=== PATIENT | female | born 1965 | race Caucasian/White ===

== ENCOUNTER 2023-11-26 21:59 | Emergency (ER) | payer MEDICARE, MEDICAID, SELFPAY ==
--- NOTE | ~2023-11-26 | CT_ITS ---
EXAMINATION: CT HEAD WITHOUT CONTRAST CT CERVICAL SPINE WITHOUT CONTRAST CLINICAL INFORMATION: Fall. Headache. COMPARISON: None available. TECHNIQUE: Contiguous axial imaging was performed through the head and cervical spine without contrast. Sagittal and coronal reformatted images also obtained. This CT examination was performed using dose optimization techniques as appropriate, variously including the following: *Automated exposure control *Adjustment of mA and/or kV according to patient size (this includes techniques or standardized protocols for targeted exams where dose is matched to indication/reason for exam; i.e. extremities or head) *Use of iterative reconstruction technique DLP: 1059 mGy-cm FINDINGS: A right occipital approach CVP shunt catheter extends anteriorly terminating in the anterior horn of the right lateral ventricle. There is bifrontal as well as temporal-occipital encephalomalacia with ex vacuo dilatation of the right lateral ventricle. There appears to be mild generalized cerebral volume loss with prominence of the left lateral and third ventricles. The cortical sulci are widened appropriately. The fourth ventricle and basal cisterns are normally outlined. There is no acute territorial defect, hemorrhage or midline shift. The extra-axial spaces are unremarkable. Calvarium: There has been a right temporal parietal craniotomy with apparent surgical clips in place and some air lucencies along the craniotomy likely chronic. There is no acute osseous abnormality. The scalp soft tissues are unremarkable. Maxillofacial sinuses and mastoids: Clear as visualized. Cervical spine: There is straightening of the cervical spine curvature. There is diffuse uroa-ts-ozxibddl cervical disc degenerative change with loss of disc space, endplate change and posterior osteophytes associated with diffuse facet osteoarthritic hypertrophic change with multilevel mild spinal canal and kdjw-rd-stbeuoml neuroforaminal narrowing. No fracture is seen. The soft tissues are unremarkable. The visualized upper lung fong are clear. CT/CT cervical spine wo IV con IMPRESSION: CT HEAD: 1. No acute intracranial abnormality. 2. Right occipital approach CVP shunt catheter extends anteriorly terminating in the anterior horn of the right lateral ventricle. 3. Bifrontal and bitemporal occipital encephalomalacia with ex vacuo dilatation of the right lateral ventricle. 4. Right temporal parietal craniotomy. CT CERVICAL SPINE: 1. No acute abnormality. 2. Diffuse cervical spondylosis.
--- NOTE | ~2023-11-26 | CT_ITS ---
EXAMINATION: CT HEAD WITHOUT CONTRAST CT CERVICAL SPINE WITHOUT CONTRAST CLINICAL INFORMATION: Fall. Headache. COMPARISON: None available. TECHNIQUE: Contiguous axial imaging was performed through the head and cervical spine without contrast. Sagittal and coronal reformatted images also obtained. This CT examination was performed using dose optimization techniques as appropriate, variously including the following: *Automated exposure control *Adjustment of mA and/or kV according to patient size (this includes techniques or standardized protocols for targeted exams where dose is matched to indication/reason for exam; i.e. extremities or head) *Use of iterative reconstruction technique DLP: 1059 mGy-cm FINDINGS: A right occipital approach CVP shunt catheter extends anteriorly terminating in the anterior horn of the right lateral ventricle. There is bifrontal as well as temporal-occipital encephalomalacia with ex vacuo dilatation of the right lateral ventricle. There appears to be mild generalized cerebral volume loss with prominence of the left lateral and third ventricles. The cortical sulci are widened appropriately. The fourth ventricle and basal cisterns are normally outlined. There is no acute territorial defect, hemorrhage or midline shift. The extra-axial spaces are unremarkable. Calvarium: There has been a right temporal parietal craniotomy with apparent surgical clips in place and some air lucencies along the craniotomy likely chronic. There is no acute osseous abnormality. The scalp soft tissues are unremarkable. Maxillofacial sinuses and mastoids: Clear as visualized. Cervical spine: There is straightening of the cervical spine curvature. There is diffuse wbfp-xk-tubwqzvr cervical disc degenerative change with loss of disc space, endplate change and posterior osteophytes associated with diffuse facet osteoarthritic hypertrophic change with multilevel mild spinal canal and bsyt-dq-rxrdosti neuroforaminal narrowing. No fracture is seen. The soft tissues are unremarkable. The visualized upper lung fong are clear. CT/CT head/brain wo IV con IMPRESSION: CT HEAD: 1. No acute intracranial abnormality. 2. Right occipital approach CVP shunt catheter extends anteriorly terminating in the anterior horn of the right lateral ventricle. 3. Bifrontal and bitemporal occipital encephalomalacia with ex vacuo dilatation of the right lateral ventricle. 4. Right temporal parietal craniotomy. CT CERVICAL SPINE: 1. No acute abnormality. 2. Diffuse cervical spondylosis.
[2023-11-26 22:03] VITALS: BP 144/80; PULSE 83; O2SAT 95
[2023-11-26 22:09] VITALS: BP 167/87; PULSE 84; RESP 16; TEMP 36.9; O2SAT 94; BMI 32.2
[2023-11-26 23:49] VITALS: BP 172/70; PULSE 78; RESP 16; TEMP 36.9; O2SAT 92
--- NOTE | 2023-11-27 00:33 | ED_ITS ---
HPI - Fall General Chief Complaint: Fall Stated Complaint: fall w/ head strike from snf Time Seen by Provider: 11/26/23 22:08 Source: patient and EMS Mode of arrival: EMS Limitations: no limitations History of Present Illness ED Provider: Dr. Ashlee Cardoza HPI Narrative: Patient comes to the emergency room complaining of a head injury. Patient states that she was in her recliner, patient accidentally fell backwards and hit the back of her head. Patient denies loss of consciousness, denies being on blood thinners, no neck pain. Patient states she has a bit of a headache, cheri es lacerations or any other injuries. 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 Related Data Allergies Allergy/AdvReac Type Severity Reaction Status Date / Time Penicillins Allergy Unknown Verified 11/26/23 22:22 Review of Systems Review of Systems: Constitutional : No Weight loss, No Fever, No Chills, No Night Sweats, No Fatigue, No Malaise ENT/Mouth : No Hearing loss, No Ear Pain, No Nasal Congestion, No Sinus Pain, No Hoarseness, No sore throat, No Rhinorrhea, No Swallowing Difficulty Eyes: No Eye Pain, No Swelling, No Redness, No Foreign Body, No Discharge, No Vision Changes Cardiovascular : No Chest Pain, No SOB, No Dyspnea on Exertion, No Orthopnea, No Edema, No Palpitations Respiratory : No Cough, No Sputum, No Wheezing, No Smoke Exposure, No Dyspnea Gastrointestinal : No Nausea, No Vomiting, No Diarrhea, No Constipation, No abdominal Pain, No Hematochezia, No Melena Genitourinary : no irregular bleeding, No Dysuria, No Urinary Frequency, No Hematuria, No Urinary Incontinence, No Urgency, No Flank Pain, No Urinary Flow Changes, No Hesitancy Musculoskeletal : No joint pain, No Myalgias, No Joint Swelling Skin : No Skin Lesions, No rash Neuro : No Weakness, No Numbness, No Paresthesias, No Loss of Consciousness, No Dizziness, complaining of mild posterior Headache Psych : No Anxiety/Panic, No Depression, No SI/HI/AH/VH, No Social Issues, Heme/Lymph: No Bruising, No Bleeding,No Lymphadenopathy Endocrine : No Polyuria, No Polydipsia, No Temperature Intolerance [facility] Past Medical History Medical History (Updated 11/27/23 @ 00:37 by Ashlee Cardoza MD) CVA (cerebral vascular accident) Social History Social History Advance Directives: No Advance Directives Information Provided: Yes Do you have a plan to hurt others: No Plan Physical Exam Vital Signs: Vital Signs: Last Vital Signs Temp 98.4 F 11/26/23 23:49 Pulse 78 11/26/23 23:49 Resp 16 11/26/23 23:49 BP 172/70 H 11/26/23 23:49 Pulse Ox 92 11/26/23 23:49 O2 Del Method Room Air 11/26/23 23:49 BMI result Body Mass Index 32.2 Const: Other: Appearance: Alert. Oriented X3. No acute distress. Well-appearing Eyes: Pupils equal, round and reactive to light. ENT: Pharynx normal. Neck: Normal inspection. Neck supple. No lymph nodes noted. No crepitus, no C- spine tenderness to palpation, normal flexion and extension, no palpable step- offs CVS: Normal heart rate and rhythm. Pulses normal. Normal S1 and S2 Respiratory: No respiratory distress. Breath sounds normal. No Wheezing. No rales Abdomen: Soft and nontender. No rigidity. No distention. Skin: Skin warm and dry. Normal skin color. Normal skin turgor. Extremities: No lower extremity edema. No Lacerations. No Rash Neuro: Oriented X 3. No motor deficit. No sensory deficit. Moving all extremities. No slurred speech. CN 2 through 12 grossly intact Psych: calm, cooperative, normal affect Medical Decision Making Medical Decision Making MDM Narrative: -patient states that the headache resolved by itself. -my interpretation of CT scan, enlarged ventricles, there is a shunt in place Differential Diagnosis Differential Diagnoses: The differential diagnosis associated with the presentation includes (Intracranial bleed, cervical spine injury, contusion, concussion) Independent Interpretation I performed an independent interpretation of an: CT Scan Radiology Impression Discussion of test interpretation with radiology: I have reviewed the radiologist's reading. Radiologist Impression: FINDINGS: A right occipital approach CVP shunt catheter extends anteriorly terminating in the anterior horn of the right lateral ventricle. There is bifrontal as well as temporal-occipital encephalomalacia with ex vacuo dilatation of the right lateral ventricle. There appears to be mild generalized cerebral volume loss with prominence of the left lateral and third ventricles. The cortical sulci are widened appropriately. The fourth ventricle and basal cisterns are normally outlined. There is no acute territorial defect, hemorrhage or midline shift. The extra-axial spaces are unremarkable. Calvarium: There has been a right temporal parietal craniotomy with apparent surgical clips in place and some air lucencies along the craniotomy likely chronic. There is no acute osseous abnormality. The scalp soft tissues are unremarkable. Maxillofacial sinuses and mastoids: Clear as visualized. Cervical spine: There is straightening of the cervical spine curvature. There is diffuse edah-zl-zubytjzy cervical disc degenerative change with loss of disc space, endplate change and posterior osteophytes associated with diffuse facet osteoarthritic hypertrophic change with multilevel mild spinal canal and ckrt-lk-wkujjwnf neuroforaminal narrowing. No fracture is seen. The soft tissues are unremarkable. The visualized upper lung fong are clear. CT/CT head/brain wo IV con IMPRESSION: CT HEAD: 1. No acute intracranial abnormality. 2. Right occipital approach CVP shunt catheter extends anteriorly terminating in the anterior horn of the right lateral ventricle. 3. Bifrontal and bitemporal occipital encephalomalacia with ex vacuo dilatation of the right lateral ventricle. 4. Right temporal parietal craniotomy. CT CERVICAL SPINE: 1. No acute abnormality. 2. Diffuse cervical spondylosis. Critical Care Time Critical Care Time Critical Care Time: Yes Total Critical Care Time: 35 Attestation: I have personally provided critical care time. Time includes review of lab data, radiology results, discussion with consultants, and monitoring for potential decompensation. Intervention performed as documented. Discharge Plan Discharge Clinical Impression: Closed head injury Patient Disposition: Home, Self-Care Instructions: Head Injury (ED) Additional Instructions: Please follow-up with your primary care physician tomorrow. If you have any worsening or new symptoms, please return to the emergency room or call 911 Print Language: Indonesian
[2023-11-27 02:21] VITALS: RESP 16
[2023-11-27 02:49] VITALS: BP 146/57; PULSE 86; RESP 20; TEMP 36.9; O2SAT 95
== END 2023-11-27 02:52 | disposition home or self-care (01) ==
PROVIDERS: Emergency Provider Emergency Medicine; PCP Nurse Practitioner Family
DX: S09.90XA Unspecified injury of head, initial encounter (principal); I69.398 Other sequelae of cerebral infarction; W08.XXXA Fall from other furniture, initial encounter; Y93.9 Activity, unspecified; Y92.9 Unspecified place or not applicable; Y99.9 Unspecified external cause status
CPT/HCPCS: 70450; 72125; 99284

== ENCOUNTER 2024-07-26 18:57 | Emergency (ER) | payer MEDICARE, MEDICAID, SELFPAY ==
[2024-07-26 19:06] VITALS: BP 132/78; PULSE 99; O2SAT 99
--- NOTE | 2024-07-26 19:21 | ED_ITS ---
HPI - Nausea/Vomiting/Diarrhea General Chief complaint: Nausea/Vomiting/Diarrhea Stated complaint: abd pain hx 1hr , vomitting. 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 comes here as she vomited 3 times after she had fish sticks in 17:00 with diffuse abdominal discomfort feeling much better no diarrhea no fever patient denied any urinary symptoms no fever no chills Related Data Previous Rx's ?Medication ?Instructions ?Recorded ondansetron 4 mg disintegrating 4 mg PO Q6-8H PRN nausea and 07/26/24 tablet vomiting #7 tabs Allergies Allergy/AdvReac Type Severity Reaction Status Date / Time levofloxacin [From Levaquin] Allergy Unknown Verified 07/26/24 19:26 Penicillins Allergy Unknown Verified 11/26/23 22:22 Review of Systems 2 Review of Systems: Yes all other systems are reviewed and are negative PMFSH Past Medical History Medical History CVA (cerebral vascular accident) Social History Social History Advance Directives: No Advance Directives Information Provided: Yes Physical Exam 2 Vital Signs: Vital Signs: Last Vital Signs Temp 98.1 F 07/26/24 19:24 Pulse 97 07/26/24 19:24 Resp 16 07/26/24 19:24 BP 131/66 07/26/24 19:24 Pulse Ox 93 07/26/24 19:24 O2 Del Method Room Air 07/26/24 19:24 BMI result Body Mass Index 30.3 Appearance: Alert. Oriented No acute distress. Eyes: No pallor or icterus legally blind ENT: Pharynx normal. Oral Mucosa moist Neck: Normal inspection. Neck supple. CVS: Normal heart rate and rhythm. Pulses normal. Respiratory: No respiratory distress. Equal air entry bilateral, no wheezing/rales/rhonchi Abdomen: Soft and nontender. Bowel sounds are present, no mass palpable, no CVA tenderness Skin: Skin warm and dry. Normal skin color. Normal skin turgor. Extremities: No lower extremity edema. No calf tenderness Neuro: Alert and awake . Left hemiparesis Medications Administered Discontinued Medications Generic Name Dose Route Start Last Admin Trade Name Benitez PRN Reason Stop Dose Admin Levetiracetam 500 mg 07/26/24 19:12 07/26/24 19:31 Levetiracetam 500 Mg Tablet PO 07/26/24 19:13 500 mg ONCE ONE Administration Levetiracetam 250 mg 07/26/24 19:13 07/26/24 19:31 Levetiracetam 250 Mg Tablet PO 07/26/24 19:14 250 mg ONCE ONE Administration Ondansetron HCl 4 mg 07/26/24 19:29 07/26/24 19:38 Ondansetron Odt 4 Mg Tab.Rapdis TRANSLINGU 07/26/24 19:30 4 mg ONCE ONE Administration Medical Decision Making Medical Decision Making [facility] Narrative: Patient with benign abdominal minor episode of vomiting after taking fish sticks likely the cause feeling much better now taking p.o. fluids will discharge patient back to Lab Data [facility] Lab Attestation statement: I reviewed the patient's lab results. 07/26/24 20:45 07/26/24 20:45 Labs: Lab Results 07/26/24 Range/Units 20:45 WBC 14.3 H (4.8-10.8) X10*3/uL RBC 4.60 (4.20-5.50) X10*6/uL Hgb 12.6 (12.0-16.0) g/dl Hct 38.5 (37.0-47.0) % MCV 83.7 (80.0-98.0) fL MCH 27.4 (27.0-33.0) pg MCHC 32.7 (31.0-35.0) g/dl RDW 13.4 (11.0-16.0) % Plt Count 278 (160-400) X10*3/uL MPV 9.0 L (9.4-12.3) fL Immature Gran % (Auto) 0.5 H (0.0-0.4) % Neut % (Auto) 88.6 H (45-73) % Lymph % (Auto) 4.0 L (20-40) % [place] % (Auto) 5.9 (2-11) % Eos % (Auto) 0.8 (0-4) % Baso % (Auto) 0.2 (0-2) % Lymph # (Auto) 0.6 L (1.2-4.9) X10*3/uL [place] # (Auto) 0.8 (0.1-1.2) X10*3/uL Eos # (Auto) 0.1 (0.0-0.4) X10*3/uL Baso # (Auto) 0.0 (0.0-0.2) X10*3/uL Abs Immat Gran (auto) 0.07 H (0.00-0.03) X10*3/uL Absolute Neuts (auto) 12.7 H (2.0-8.3) x10*3/uL Absolute Nucleated RBC 0.000 (0.0-0.012) X10*3/uL Nucleated RBC % (auto) 0.0 (0.0-0.2) /100WBC Sodium 141 (135-145) mmol/L Potassium 3.2 L (3.3-5.1) mmol/L Chloride 109 H (96-108) mmol/L Carbon Dioxide 21 L (22-29) mmol/L Anion Gap 14 (12-20) BUN 13 (9-16) mg/dL Creatinine 0.51 (0.5-1.4) mg/dL Estim Creat Clear Calc 89.8 Estimated GFR > 60 Random Glucose 138 H (60-115) mg/dL Calcium 8.5 (8.4-10.2) mg/dL Total Bilirubin 0.2 (0.0-1.0) mg/dL Direct Bilirubin < 0.2 (0.0-0.5) mg/dL AST 27 (5-31) U/L ALT 17 (0-31) U/L Alkaline Phosphatase 83 (39-117) U/L Total Protein 7.7 (6.5-8.0) g/dL Albumin 4.0 (3.5-5.0) g/dL Lipase 26 (8-78) U/L Discharge Plan Discharge Clinical Impression: Gastroenteritis Patient Disposition: Home, Self-Care Instructions: Acute Nausea and Vomiting (ED) Additional Instructions: drink plenty of fluids Medicine for nausea as prescribed Your symptoms self-limited get better in 2-3 days Prescriptions: New ondansetron 4 mg tablet,disintegrating 4 mg PO Q6-8H PRN (Reason: nausea and vomiting) Qty: 7 0RF Print Language: Uzbek
[2024-07-26 19:24] VITALS: BP 131/66; PULSE 97; RESP 16; TEMP 36.7; O2SAT 93; BMI 30.3
[2024-07-26] MEDS: levETIRAcetam 250 MG TABLET PO (19:31)
[2024-07-26] MEDS: levETIRAcetam 500 MG TABLET PO (19:31)
[2024-07-26] MEDS: Ondansetron ODT 4 MG TAB.RAPDIS TRANSLINGU (19:38)
[2024-07-26 20:55] LABS: MANUAL DIFF FLAG NO
[2024-07-26 20:56] LABS: Basophils Percent Auto 0.2 % (0-2); Eosinophils Absolute Auto 0.1 X10*3/uL (0.0-0.4); Eosinophils Percent Auto 0.8 % (0-4); Hematocrit 38.5 % (37.0-47.0); Hemoglobin 12.6 g/dl (12.0-16.0); Imm Gran Abs Auto 0.07 X10*3/uL (0.00-0.03); Imm Gran Pct Auto 0.5 % (0.0-0.4); Lymphocytes Absolute Auto 0.6 X10*3/uL (1.2-4.9); Mean Corpuscular HGB Conc 32.7 g/dl (31.0-35.0); Mean Corpuscular Hemoglobin 27.4 pg (27.0-33.0); Mean Corpuscular Volume 83.7 fL (80.0-98.0); Monocytes Absolute Auto 0.8 X10*3/uL (0.1-1.2); Monocytes Percent Auto 5.9 % (2-11); Neutrophils Absolute Auto 12.7 x10*3/uL (2.0-8.3); Neutrophils Percent Auto 88.6 % (45-73); Platelet Count 278 X10*3/uL (160-400); Red Cell Distribution Width 13.4 % (11.0-16.0); White Blood Count 14.3 X10*3/uL (4.8-10.8)
[2024-07-26 21:21] LABS: Alanine Aminotransferase 17 U/L (0-31); Alkaline Phosphatase 83 U/L (39-117); Anion Gap 14 (12-20); Aspartate Amino Transferase 27 U/L (5-31); Bilirubin Direct < 0.2 mg/dL (0.0-0.5); Bilirubin Total 0.2 mg/dL (0.0-1.0); Blood Urea Nitrogen 13 mg/dL (9-16); Calcium 8.5 mg/dL (8.4-10.2); Carbon Dioxide 21 mmol/L (22-29); Chloride 109 mmol/L (96-108); Creatinine Clr Calc Pharmacy 89.8; Estimated Glomerular Filt Rate > 60; Glucose Random 138 mg/dL (60-115); Lipase 26 U/L (8-78); Potassium 3.2 mmol/L (3.3-5.1); Sodium 141 mmol/L (135-145); Total Protein 7.7 g/dL (6.5-8.0)
[2024-07-27 00:05] VITALS: BP 131/66; PULSE 97; RESP 16; TEMP 36.7; O2SAT 93
== END 2024-07-27 00:07 | disposition home or self-care (01) ==
PROVIDERS: Nurse Practitioner Family; Emergency Provider Internal Medicine; PCP Nurse Practitioner Family
DX: K52.9 Noninfective gastroenteritis and colitis, unspecified (principal); R11.2 Nausea with vomiting, unspecified; R10.2 Pelvic and perineal pain; Z79.899 Other long term (current) drug therapy
CPT/HCPCS: 36415; 80048; 80076; 83690; 85025; 96374; 99282; 99284

== ENCOUNTER 2025-03-03 12:17 | Emergency (ER) | payer MEDICARE, MEDICAID, SELFPAY ==
--- OUTSIDE RECORDS SUMMARY | 2025-03-02 09:45 | XMS_ITS | Encounter Summary ---
Author Organization [facility] Address [address] [place] [address] Phone Care Team Providers Care Wood Flooring Specialist Name Role Phone Suzanne De Leon [facility] Primary Care Provider [phone] Suzanne De Leon [facility] Unavailable [phone] Reason for Visit * Physical Therapy (Elective) - Authorized Specialty Diagnoses / Procedures Referred By Brent to Referred To Contact Physical Therapy Diagnoses right shoulder Alison Evans MD [facility], [facility] [address] Phone: tel: fax: [email or web address] [address] [place] [address] Phone: tel: Referral ID Status Reason Start Date Expiration Date V isits Requested Visits Authorized [id number] Authorized 11/11/2024 11/11/2025 99 99 Encounter Details Date Type Department Care Team (Latest Contact Info) Description 03/02/2025 9:45 AM EDT Office Visit [facility] [address] [place] [address] Alison Evans MD [address] [place] [address] [facility] [place] [address] [email or web address] Diane Long, PT [address] [place] [address] [email or web address] Chronic right shoulder pain (Primary Dx); Right hand pain Social History Tobacco Use Types Packs/Day Years Used Date Smoking Tobacco: Never Smokeless Tobacco: Never Alcohol Use Standard Drinks/Week Comments Not Currently 0 (1 standard drink = 0.6 oz pur e alcohol) Education Answer Date Recorded Are you interested in more education? Not on angelique e 11/03/2022 Are you concerned about learning? Not on file 11/03/2022 No 11/03/2022 No 11/03/2022 Digital Access Answer Date Recorded No 12/01/2022 No 12/01/2022 Reliable internet access at home? Not on file 12/01/2022 Device with a working camera? Not on file Intimate Partner Violence Answer Date R ecorded Are you denied basic needs s uch as food, clothing, or medical care? No 12/08/2024 In the past 12 months have y ou been in a relationship with a person who hurts, threatens, or tries to control you? No 12/08/2024 Are you denied basic needs s uch as food, clothing, or medical care? No 12/08/2024 In the past 12 months have y ou been in a relationship with a person who hurts, threatens, or tries to control you? No 12/08/2024 Comments No Sex and Gender Information Value Date Recorded Sex Assigned at Female 03/28/2021 6:41 AM EDT Legal Sex Female 6:42 PM EST Gender Identity Female 03/28/2021 6:41 AM EDT Sexual Orientation Not on file Occupation Industry Job Start Date Job End Date Disabled Not on file Not on file Not on file documented as of this encounter Progress Notes * Diane Long, PT - 03/02/2025 9:45 AM EDT Physical Therapy Treatment Note Patient Name: Radha Julian Date of : 1965 This patient has attended 7 visits since the onset Physical Therapy. Referring MD: Alison Evans MD [address] [place] [address] [facility], [place] [address] Treatment diagnosis: Chronic right shoulder pain [M25.511, G89.29] Precautions: Left hemiplegia (chronic left upper extremity weakness); Right shoulder arthritis and tendonitis; [facility] arthritis - recommend thumb brace for support; Advise against tendon rolling; osteopenia; (vision) legal blindness Transfers: min-mod A squat pivot, patient already typically has pink gait belt donned, caregiver can provide assistance if needed Subjective: Patient reports her right shoulder kicks up at times and the sometimes her right thumb Patient reports rowing is going fine with right arm and right leg, 1500 m each session on . Patient reports rowing trip will be in [place] this year (April 03) Objective Measures: Upper Extremity ROM: SHOULDER AROM Right Flexion 130 (seated) 170 (supine) No pain Abduction 145 (seated) * 3/10 pain EMPLOYEE COMMUNICATIONS COORDINATOR Vanda present for appointment, PT wheeled patient into treatment room Interventions: See encounter report for minutes associated with each intervention. Therapeutic exercise: - forward flexion table slides: 2 x 10 - scaption table slides: 2 x 10 - scapular retraction: 2 x 10 - Shoulder ER: progressed to red TB attached to chair, towel roll support 3 x 10 - 2lb dumbbell bicep curl: 3 x 10 - thumbs up lateral deltoid raise 1lb AROM 3 x 10 - shoulder IR: towel roll support 3 x 10 red TB 3 x 10 Wheelchair mobility: - R arm/R leg, 130 feet over course of 4 minutes Home Exercise Program: Access Code: [email or web address] URL: [email or web address] Date: 02/02/2025 Prepared by: Diane Long Exercises - Seated Shoulder Flexion Towel Slide at Table Top - 5 x weekly - 2 sets - 10 reps - Posture: Scapular squeezes through out the day - 5 x weekly - 2 sets - 10 reps - Seated Shoulder Row with Resistance Anchored at Feet - 5 x weekly - 3 sets - 10 reps - Seated Shoulder Internal Rotation with Anchored Resistance - 5 x weekly - 3 sets - 10 reps - Seated Shoulder External Rotation with Resistance - 5 x weekly - 3 sets - 10 reps - Bicep curls - 3 x weekly - 3 sets - 10 reps - Strength: Middle Deltoid Raise - 3 x weekly - 3 sets - 10 reps - Seated Shoulder Pendulum Exercise - 1-3 x daily - 5 x weekly - 1 sets - 10 reps Self-care/education: review and practice of HEP Assessment: Patient exhibits less right shoulder pain with flexion and abduction AROM, improved form with setup assistance for HEP, progressed to red theraband for IR and ER. GOAL (Short Term): Within 3-4 weeks: -Patient will be able to propel wheelchair for 2 minutes without right shoulder pain limiting activity MET -Patient will be able to perform scapular retraction with minimal verbal cues MET -Patient will participate in strengthening program 3-4 days per week without right shoulder pain exacerbation > or = 4/10 PROGRESSING -Patient will be independent and compliant with initial home exercise program/self management PROGRESSING (Correction): Within 6-8 weeks: -Patient/caregiver is able to dress without right shoulder pain limiting function MET -Patient will improve seated right shoulder abduction AROM > or = 130 degrees MET -Patient will be able to propel wheelchair for 5 minutes without right shoulder pain limiting activity PROGRESSING -Patient will participate in strengthening program 3-4 days per week without right shoulder pain exacerbation > or = 4/10 PROGRESSING -Patient global pain-free R rotator cuff strength > or = 4+/5 PROGRESSING -Patient/caregiver will be independent and compliant with final home exercise program/self management Patient Stated Goal: relief from discomfort MET Plan: Tentative discharge, no further visits scheduled at this time. Cancellation list for Tuesdays Continue with POC. Discussed patient scheduling more visits until her competition on 04/03/25, provided slip for scheduling. Patient may benefit from specialized hand therapy for right hand/wrist (will contact Dr. Pyle) if OT order is warranted. Diane Long [place] [id number] documented in this encounter Plan of Treatment Upcoming Encounters Date Type Department Care Team (Late st Contact Info) Description 11/19/2024 Procedure Pass [facility], [address] [address] 06/16/2025 10:30 AM EST Appointment [facility], Mammography- [address] [address] Suzanne De Leon FNP [address] [facility], [facility] [address] [address] 08/03/2025 11:15 AM EST Appointment [facility], Bone Density - [address] [address] Suzanne De Leon FNP [address] [facility], [facility] [address] [address] documented as of this encounter Visit Diagnoses Diagnosis Chronic right shoulder pain- Primary Pain in joint, shoulder region Right hand pain Pain in soft tissues of limb documented in this encounter Additional Health Concerns Assessment Noted Time PHQ-2 Depression Total Score: 0 11/18/19 11:54 AM EDT documented as of this encounter Care Teams Wood Flooring Specialist Relationship Specialty Start Date End Date Suzanne De Leon FNP [address] [place] [address], [facility] [address] [address] PCP - General Family Medicine 07/20/21 Suzanne De Leon FNP [address] [place] [address] [address] [address] Insurance Assigned Provider 10/11/24 documented as of this encounter Additional Source Comments The information contained in this document represents components of the legal health record. It is not the complete legal health record.[facility]
--- NOTE | ~2025-03-03 | XR_ITS ---
EXAMINATION: XR KNEE, LEFT CLINICAL INFORMATION: L knee pain COMPARISON: None available. TECHNIQUE: AP and lateral views of the left knee. FINDINGS: There is diffuse osteopenia. There is a fracture of the distal femur that extends from the anterior metaphyseal region to the posterior mid to distal diaphysis. There is no joint effusion. XR/XR knee LT 2V IMPRESSION: Distal femoral metadiaphyseal fracture. Osteopenia. Electronically signed by: Francois Luna MD 03/03/2025 01:31 PM EDT
--- NOTE | ~2025-03-03 | XR_ITS ---
EXAMINATION: XR CHEST CLINICAL INFORMATION: medical clearance COMPARISON: None available. TECHNIQUE: AP view of the chest was obtained. FINDINGS: There is an old shunt catheter in the right neck traversing the thorax into the abdomen. The cardiac, hilar, and mediastinal contours are normal. The lungs are clear bilaterally. No pneumothorax or effusion. No focal osseous or soft tissue abnormality. There are arthritic changes in the right greater than left shoulder joints and throughout the spine. XR/XR chest 1V IMPRESSION: No active pulmonary disease. Electronically signed by: Atul Nielsen MD 03/03/2025 02:53 PM EDT
[2025-03-03 12:22] VITALS: BP 150/90; PULSE 70; O2SAT 97; BMI 33.3
[2025-03-03 12:32] VITALS: BP 146/70; PULSE 86; RESP 17; TEMP 36.6; O2SAT 94
--- NOTE | 2025-03-03 12:32 | ED.GENADULT ---
HPI - General Adult General Chief complaint: Extremity Injury, Lower Stated complaint: L KNEE PAIN Time Seen by Provider: 03/03/25 12:26 Source: patient, EMS and RN notes reviewed Mode of arrival: wheelchair Limitations: no limitations History of Present Illness ED Provider: Raquel Green PA-C HPI narrative: 60-year-old female with medical history of TBI with left hemiparesis presents to the ED by EMS due to acute left knee pain that started this morning after patient was getting out of bed and trying to transfer into a wheelchair. Patient denies recent trauma or injury to the left knee. Reports she took 400 mg of ibuprofen this morning without effect. Related Data Home Medications ?Medication ?Instructions ?Recorded ?Confirmed alendronate 70 mg tablet 70 mg PO MO 03/03/25 03/03/25 calcium 500 mg tablet 500 mg PO DAILY 03/03/25 03/03/25 cetirizine 10 mg tablet 10 mg PO DAILY 03/03/25 03/03/25 cetirizine 10 mg tablet (Zyrtec) 10 mg PO DAILY 03/03/25 03/03/25 cholecalciferol (vitamin D3) 50 50 mcg PO DAILY 03/03/25 03/03/25 mcg (2,000 unit) tablet fluoxetine 10 mg tablet 10 mg PO DAILY 03/03/25 03/03/25 fluoxetine 20 mg tablet 20 mg PO DAILY 03/03/25 03/03/25 ibuprofen 400 mg tablet 400 mg PO BID 03/03/25 03/03/25 levetiracetam 750 mg tablet 750 mg PO BID 03/03/25 03/03/25 (Keppra) levothyroxine 100 mcg tablet 100 mcg PO SUTUWEFRSA 03/03/25 03/03/25 (Synthroid) levothyroxine 50 mcg tablet 50 mcg PO MOTH 03/03/25 03/03/25 (Synthroid) loperamide 2 mg capsule (Imodium 2 mg PO Q OTHER DAY 03/03/25 03/03/25 A-D) mirtazapine 7.5 mg tablet 7.5 mg PO BEDTIME 03/03/25 03/03/25 multivitamin 1 tab PO DAILY 03/03/25 03/03/25 omeprazole 40 mg capsule,delayed 40 mg PO BEDTIME 03/03/25 03/03/25 release oxybutynin chloride 10 mg 10 mg PO DAILY 03/03/25 03/03/25 tablet,extended release 24 hr Previous Rx's ?Medication ?Instructions ?Recorded cefuroxime axetil 250 mg tablet 250 mg PO BID 7 days #13 tabs 03/05/25 Allergies Allergy/AdvReac Type Severity Reaction Status Date / Time lactose Allergy Gastrointestinal Verified 03/03/25 16:46 Upset levofloxacin (From Levaquin) Allergy Unknown Verified 03/03/25 12:25 Penicillins Allergy Unknown Verified 03/03/25 12:25 Review of Systems Review of Systems: CONST: Negative for fever, body aches and chills. HENT: Negative for neck pain/stiffness, headache, congestion, sore throat, swelling. EYES: Negative for discharge/pain or vision changes. RESP: Negative for cough/hemoptysis and shortness of breath. CV: Negative chest pain, difficulty breathing, palpitations. ABD: Negative pain, nausea, vomiting. : Negative increase frequency, dysuria, blood in urine or stool. MUSC: Negative for muscle aches, edema. POS L knee pain SKIN: Negative rash, lesions/sores. NEURO: Negative headache, dizziness, weakness. Yes all other systems are reviewed and are negative PMFSH Past Medical History Attestation statement: The following information was validated with the patient. Source: old records reviewed and nursing notes reviewed Medical History CVA (cerebral vascular accident) Social History Social History Smoked in Last 30 Days: No Use of substances other than those prescribed or required for medical reasons: No Advance Directives: No Advance Directives Information Provided: Yes Do you have a plan to hurt others: No Plan Physical Exam ED Vital Signs: Vital Signs - 24 hr 03/04/25 14:00 03/04/25 22:00 03/05/25 05:45 Temperature 99.4 F 97.3 F 97.8 F Pulse Rate 118 H 104 H 92 Respiratory Rate 16 18 16 Blood Pressure 140/51 H 124/50 L 103/62 Pulse Oximetry 94 90 L 93 Oxygen Delivery Method Room Air Room Air Room Air BMI result Body Mass Index 33.3 GENERAL APPEARANCE: ?AxOx4, generally well-appearing, no acute distress. HEENT: ?NC, AT. MMM. EOMI, clear conjunctiva, oropharynx clear. NECK: ?Supple without lymphadenopathy.? No stiffness or restricted ROM. HEART:? Normal rate and regular rhythm, normal S1/S1, no m/r/g LUNGS:? CTAB, moving air well. No crackles or wheezes are heard. ABDOMEN: ?Soft, nontender, nondistended with good bowel sounds heard. BACK: No CVAT, no obvious deformity. EXTREMITIES: ?Without cyanosis, clubbing or edema. Diffuse TTP of left patella, no anatomical abnormalities palpated or observed, no joint line tenderness, no overlying skin changes or warmth, no edema, pain with passive ROM, patient unable to move left side due to hemiparesis NEUROLOGICAL: ?Grossly nonfocal. Alert and oriented, moving all 4 extremities. Observed to ambulate with normal gait. Skin: ?Warm and dry without any rash. Course Course Course Narrative: 03/04/2025 0900 Gracy Thomas PA-C ---> Observation continues. Case management continues to follow. Time: 08:43 Date: 03/05/25 Provider: RYAN Brink Patient in physician observation for case management needs. she has a distal femur fracture, placed in long leg posterior splint - PT recommending STR. CM following. her UA is concerning for infection - culture still pending. will order ceftin PO for treatment in the meantime. No acute events reported overnight.? No current issues or complaints. VS stable. Patient is pending placement at facility. Will continue to monitor. Time: 10:33 Date: 03/05/25 Provider: RYAN Brink Physician observation ended at 1033. Per case management, [facility] Patient agreeable. She does have a UTI, provided with written script for Ceftin. She received 1 dose of this today. Medications Administered Generic Name Dose Route Start Last Admin Trade Name Freq PRN Reason Stop Dose Admin Calcium Carbonate 500 mg 03/04/25 09:00 03/05/25 09:48 Calcium Oyster Shell Elemental 500 Mg Tablet PO 500 mg DAILY CHRISTOPHER Administration Fluoxetine HCl 10 mg 03/04/25 09:00 03/04/25 09:12 Fluoxetine Hcl 10 Mg Capsule PO 10 mg DAILY CHRISTOPHER Administration Fluoxetine HCl 20 mg 03/04/25 09:00 03/05/25 09:43 Fluoxetine Hcl 20 Mg Capsule PO 20 mg DAILY CHRISTOPHER Administration Ibuprofen 400 mg 03/04/25 09:00 03/05/25 09:46 Ibuprofen 400 Mg Tablet PO 400 mg BID CHRISTOPHER Administration Levetiracetam 750 mg 03/04/25 09:00 03/05/25 09:40 Levetiracetam 250 Mg Tablet PO 750 mg BID CHRISTOPHER Administration Levothyroxine Sodium 50 mcg 03/04/25 06:00 03/04/25 05:50 Levothyroxine Sodium 50 Mcg Tablet PO 50 mcg MoTh@0600 CHRISTOPHER Administration Levothyroxine Sodium 100 mcg 03/05/25 06:00 03/05/25 06:53 Levothyroxine Sodium 100 Mcg Tablet PO 100 mcg SuTuWeFrSa@0600 CHRISTOPHER Administration Loperamide HCl 2 mg 03/04/25 09:00 03/04/25 09:12 Loperamide Hcl 2 Mg Capsule PO 2 mg Q48H CHRISTOPHER Administration Loratadine 10 mg 03/04/25 09:00 03/05/25 09:48 Loratadine 10 Mg Tablet PO 10 mg DAILY CHRISTOPHER Administration Mirtazapine 7.5 mg 03/04/25 21:00 03/04/25 21:00 Mirtazapine 7.5 Mg Tablet PO 7.5 mg BEDTIME CHRISTOPHER Administration Omeprazole 40 mg 03/04/25 16:30 03/04/25 16:56 Omeprazole 40 Mg Capsule. PO 40 mg DAILY@1630 CHRISTOPHER Administration Oxybutynin Chloride 10 mg 03/04/25 09:00 03/05/25 09:45 Oxybutynin Chloride Er 5 Mg Tab.Er.24 PO 10 mg DAILY CHRISTOPHER Administration Medical Decision Making Medical Decision Making MDM Narrative: 60-year-old female with medical history of TBI with left hemiparesis presents to the ED by EMS due to acute left knee pain that started this morning after patient was getting out of bed and trying to transfer into a wheelchair. Patient denies recent trauma or injury to the left knee. Reports she took 400 mg of ibuprofen this morning without effect. Plan: XR L knee, medicating with 975 po tylenol. Course 17:09- XR L knee reveals osteopenia, distal femoral metadiaphyseal fracture. I spoke with caregiver who denies any recent fall or trauma. This may be a pathologic fracture I evaluated for any masses or lung abnormalities chest x-ray which was clear for acute processes. Labs without leukocytosis/leukopenia, H&H stable. I spoke to orthopedic RYAN Hall to evaluated patient needed surgical intervention, she recommended patient be put in knee immobilizer. Patient lives in care home and self transfers to bed and bathroom from wheelchair. Patient will be unable to do this on her own, awaiting PT evaluation with case management for short-term rehab stay. 19:04- patient unable to put knee in full extension for knee imobilizer. I spoke with Orthopedic PA Martha Hall who recommended a long leg posterior splint for management. Patient watitng for PT evaluation and short term rehab stay. Differential Diagnosis Differential Diagnoses: The differential diagnosis associated with the presentation includes Knee fracture Knee dislocation Knee strain Osteoarthritis Admission/Observation Consideration of admission/observation: Escalation of care including admission/observation considered Lab Data MDM Lab Attestation statement: I reviewed the patient's lab results. 03/03/25 15:10 03/03/25 15:10 Labs: Lab Results 03/03/25 03/03/25 03/04/25 Range/Units 15:10 17:21 10:29 WBC 10.8 (4.8-10.8) X10*3/uL RBC 4.18 L (4.20-5.50) X10*6/uL Hgb 11.7 L (12.0-16.0) g/dl Hct 36.2 L (37.0-47.0) % MCV 86.6 (80.0-98.0) fL MCH 28.0 (27.0-33.0) pg MCHC 32.3 (31.0-35.0) g/dl RDW 13.5 (11.0-16.0) % Plt Count 306 (160-400) X10*3/uL MPV 8.9 L (9.4-12.3) fL Immature Gran % (Auto) 0.5 H (0.0-0.4) % Neut % (Auto) 76.9 H (45-73) % Lymph % (Auto) 16.3 L (20-40) % [place] % (Auto) 5.6 (2-11) % Eos % (Auto) 0.3 (0-4) % Baso % (Auto) 0.4 (0-2) % Lymph # (Auto) 1.8 (1.2-4.9) X10*3/uL Deuel # (Auto) 0.6 (0.1-1.2) X10*3/uL Eos # (Auto) 0.0 (0.0-0.4) X10*3/uL Baso # (Auto) 0.0 (0.0-0.2) X10*3/uL Abs Immat Gran (auto) 0.05 H (0.00-0.03) X10*3/uL Absolute Neuts (auto) 8.3 (2.0-8.3) x10*3/uL Absolute Nucleated RBC 0.000 (0.0-0.012) X10*3/uL Nucleated RBC % (auto) 0.0 (0.0-0.2) /100WBC Sodium 143 (135-145) mmol/L Potassium 4.0 D (3.3-5.1) mmol/L Chloride 105 (96-108) mmol/L Carbon Dioxide 29 (22-29) mmol/L Anion Gap 13 (12-20) BUN 12 (9-16) mg/dL Creatinine 0.52 (0.5-1.4) mg/dL Estim Creat Clear Calc 100.1 Estimated GFR > 60 Random Glucose 122 H (60-115) mg/dL Calcium 9.2 D (8.4-10.2) mg/dL Urine Color Yellow Urine Appearance Hazy Urine pH 6.5 (5.0-9.0) Ur Specific [place] 1.015 (1.005-1.025) Urine Protein Negative (Neg-Trace) mg/dL Urine Glucose (UA) Negative (Negative) mg/dL Urine Ketones Negative (Negative) mg/dL Urine Blood Trace (Negative) Urine Nitrite Negative (Negative) Ur Leukocyte Esterase Moderate (2+) H (Negative) Urine RBC 3-5 H (0-2) /HPF Urine WBC 6-10 (0-5) /HPF Ur Squamous Epith Cells 0-2 (0-2) /HPF Urine Bacteria 4+ (None Seen) Hyaline Casts 0-2 (0-2) /LPF Influenza Type A (PCR) NEGATIVE (Negative) Influenza Type B (PCR) NEGATIVE (Negative) RSV RNA Qual (PCR) NEGATIVE (Negative) SARS-CoV-2 RNA (RT-PCR) NEGATIVE (Negative) Independent Interpretation I performed an independent interpretation of an: EKG and Plain X-Ray Interpretation: I personally interpreted the EKG which revealed normal sinus rhythm without ST-elevation/depression, T-wave abnormality Vent. Rate : 96 BPM Atrial Rate : 96 BPM P-R Int : 130 ms QRS Dur : 70 ms QT Int : 388 ms P-R-T Axes : 52 -1 31 degrees QTcB Int : 490 ms Normal sinus rhythm Normal ECG No previous ECGs available I personally interpreted the chest x-ray which reveals a normal cardiomediastinal silhouette, no lung masses, pleural effusion, pulmonary edema, infiltrates or consolidations, I agree with the radiologist's interpretation Radiology Impression Discussion of test interpretation with radiology: I have reviewed the radiologist's reading. Radiologist Impression: XR L knee FINDINGS: There is diffuse osteopenia. There is a fracture of the distal femur that extends from the anterior metaphyseal region to the posterior mid to distal diaphysis. There is no joint effusion. XR/XR knee LT 2V IMPRESSION: Distal femoral metadiaphyseal fracture. Osteopenia. Electronically signed by: Francois Luna MD 03/03/2025 01:31 PM EDT RP Dictated By: Francois Luna MD Signed By: <Electronically signed by Francois Luna MD in OV> 03/03/25 1331 CXR FINDINGS: There is an old shunt catheter in the right neck traversing the thorax into the abdomen. The cardiac, hilar, and mediastinal contours are normal. The lungs are clear bilaterally. No pneumothorax or effusion. No focal osseous or soft tissue abnormality. There are arthritic changes in the right greater than left shoulder joints and throughout the spine. XR/XR chest 1V IMPRESSION: No active pulmonary disease. Electronically signed by: Atul Nielsen MD 03/03/2025 02:53 PM EDT RP Dictated By: Atul Nielsen MD Signed By: <Electronically signed by Atul Nielsen MD in OV> 03/03/25 1453 Independent Historian Clinical information obtained from an independent historian. History obtained from or confirmed by: Other (Caregiver at bedside corroborating history) External Record Review External record reviewed: Inpatient record, Office record and Outpatient record Social Determinants Patient?s care significantly limited by Social Determinants of Health including: Other Social Determinant of Health Discharge Plan Discharge Clinical Impression: Fracture of femur, UTI (urinary tract infection) Patient Disposition: Xfer Inpatient Rehab Fac Transfer Details: [facility] Instructions: Leg Fracture (ED), Urinary Tract Infection in Women (ED) Additional Instructions: Do NOT get your splint wet. Do NOT remove your splint. If you have any change in sensation, movement, or color of your left toes - you may loosen the outer FAN wraps. If you find yourself loosening the FAN wraps to the point of seeing the white splint material underneath - STOP and proceed to your closest Emergency Department, immediately. Follow up with your primary care provider and the orthopedic team. Return to the emergency department immediately if your symptoms worsen or if you develop any numbness, tingling, dizziness, shortness of breath, difficulty breathing, chest pain, blurry vision, loss of vision, nausea, vomiting, abdominal pain, fever, chills, back pain, or any other complaints. Please see the information below about our Patient Portal. If you are not yet enrolled in the [facility] Patient Portal, you will receive an enrollment email invitation following your visit to any [facility] care setting. You may also self-enroll in the Patient Portal by visiting our website: [email or web address] The following information is required to access the Patient Portal: - Your [facility] Medical Record Number - Your personal home email address (must match what is in your electronic medical record, Registration staff can assist with this) - Name - Date of Capabilities of the Patient Portal: - Message some providers - View upcoming appointments - Access your health summary, medical history, and visit history - View current conditions and allergies - View procedure and lab results - View your medications, including guidelines, side effects, and precautions - Complete pre-appointment questionnaires requested by your provider - Ready summary reports of your office visits and procedures To access the Patient Portal Mobile Italo, follow these directions: - Search [employer] in the Italo Store or M[employer] Gu[employer] Store - Download the Italo - Search for [facility] - Enter your login/password You have a UTI. I have given you a written prescription for antibiotics. You received a total of 1 dose here. Prescriptions: New cefuroxime axetil 250 mg tablet 250 mg PO BID 7 Days Qty: 13 0RF No Action loperamide [Imodium A-D] 2 mg Capsule 2 mg PO Q OTHER DAY alendronate 70 mg Tablet 70 mg PO MO fluoxetine 10 mg Tablet 10 mg PO DAILY fluoxetine 20 mg Tablet 20 mg PO DAILY ibuprofen [Motrin] 400 mg Tablet 400 mg PO BID levetiracetam [Keppra] 750 mg Tablet 750 mg PO BID mirtazapine 7.5 mg Tablet 7.5 mg PO BEDTIME cetirizine [Zyrtec] 10 mg Tablet 10 mg PO DAILY oxybutynin chloride 10 mg Tablet Extended Release 24hr 10 mg PO DAILY Oyster Calcium 500 mg Tablet 500 mg PO DAILY omeprazole [Prilosec] 40 mg Capsule,Delayed Release(Dr/Ec) 40 mg PO BEDTIME levothyroxine [Synthroid] 100 mcg Tablet 100 mcg PO SUTUWEFRSA Patient Comments: unclear as to the dates the pt takes this dose levothyroxine [Synthroid] 50 mcg Tablet 50 mcg PO MOTH multivitamin Tablet 1 tab PO DAILY cetirizine 10 mg Tablet 10 mg PO DAILY cholecalciferol (vitamin D3) 50 mcg (2,000 unit) Tablet 50 mcg PO DAILY Referrals: [facility] [Outside] Referral Note: [phone] Print Language: Divehi
--- OUTSIDE RECORDS SUMMARY | 2025-03-03 13:10 | XMS_ITS | Encounter Summary ---
Author Organization [facility] Address [address] [place] [address] Phone Care Team Providers Care Podiatric Surgeon Name Role Phone Saeed Alvarez MD Unavailable Suzanne De Leon [facility] Primary Care Provider Spencer Chamorro MD Unavailable Suzanne De Leon [facility] Unavailable [phone] Reason for Visit * Reason Onset Date Comments orders 03/15/2022 HCP orders Encounter Details Date Type Department Care Team ([facility] st Contact Info) Description 03/15/2022 Telephone [facility] [address] [place] [address] Richard Ward, [facility] [phone] [place] [address] orders (HCP orders) Social History Tobacco Use Types Packs/Day Years Used Date Smoking Tobacco: Never Smokeless Tobacco: Never Alcohol Use Standard Drinks/Week Comments Not Currently 0 (1 standard drink = 0.6 oz pur e alcohol) Comments No Sex and Gender Information Value Date Recorded Sex Assigned at Female 03/28/2021 6:41 AM EDT Legal Sex Female 6:42 PM EST Gender Identity Female 03/28/2021 6:41 AM EDT Sexual Orientation Not on file Occupation Industry Job Start Date Job End Date Disabled Not on file Not on file Not on file documented as of this encounter Progress Notes * Suzanne De Leon FNP - 03/19/2022 7:53 AM EDT I don't have any papers to sign for her, is this all set? * Lore Smyth MA - 03/16/2022 10:42 AM EDT Orders faxed over this morning. Forms put in to be scanned bin. * Richard Ward MA - 03/15/2022 2:08 PM EDT Nancy called triage line on behalf of patient requesting the HCP order that they had faxed to us be signed and faxed back. They need this in order to give patient medications listed on order itself. Any questions she can be reached at [phone] or [phone] documented in this encounter Plan of Treatment Upcoming Encounters Date Type Department Care Team (Late st Contact Info) Description 11/19/2024 Procedure Pass [address] [address] 06/16/2025 10:30 AM EST Appointment [address] [address] Suzanne De Leon FNP [address] [place] [address], [address] [place] [address] 08/03/2025 11:15 AM EST Appointment [facility] [address] [place] [address] Suzanne De LeonDINAH [address] [facility], [address] [place] [address] [email or web address] documented as of this encounter Visit Diagnoses Diagnosis Incontinence of feces with fecal urgency- Primary documented in this encounter Additional Health Concerns Assessment Noted Time PHQ-2 Depression Total Score: 1 06/20/20 20 11:09 AM EST documented as of this encounter Care Teams Podiatric Surgeon Relationship Specialty Start Date End Date Suzanne De LeonDINAH [address] [place] [address], [facility] [address] [place] [address] [email or web address] PCP - General Family Medicine 07/20/21 Saeed Alvarez MD [address] [place] [address] [address] [place] [id number] [email or web address] Insurance Assigned Provider 09/10/15 Spencer Chamorro MD [address] [place] [address], [address] [place] [id number] Insurance Assigned Provider 10/13/22 Suzanne De Leon DINAH Vann [address] [place] [address] [address] [place] [address] [email or web address] Insurance Assigned Provider 10/11/24 documented as of this encounter Additional Source Comments The information contained in this document represents components of the legal health record. It is not the complete legal health record.[facility]
--- OUTSIDE RECORDS SUMMARY | 2025-03-03 13:10 | XMS_ITS | Encounter Summary ---
Author Organization [facility] Address [address] [place] [address] Phone Care Team Providers Care Field Laborer Name Role Phone Saeed Alvarez MD Unavailable [phone] Saeed Alvarez MD Primary Care Provider [phone] Suzanne De Leon [facility] Primary Care Provider Spencer Chamorro MD Unavailable Suzanne De Leon [facility] Unavailable Encounter Details Date Type Department Care Team (Late st Contact Info) Description 08/05/2019 Ancillary Orders [facility] Medicine [address] [place] [address] Saeed Alvarez MD [address] [facility]. [address] [place] [id number] [email or web address] Social History Tobacco Use Types Packs/Day Years [...] AM EDT Sexual Orientation Not on file documented as of this encounter Plan of Treatment Upcoming Encounters Date Type Department Care Team (Late st Contact Info) Description 11/19/2024 Procedure Pass [address] [address] 06/16/2025 10:30 AM EST Appointment [address] [address] Suzanne De Leon FNP [address] [facility] [address] [place] [address] [email or web address] 08/03/2025 11:15 AM EST Appointment [facility] Density [address] [address] Suzanne De Leon FNP [address] [facility] [address] [place] [address] [email or web address] documented as of this encounter Visit Diagnoses Not on filedocumented in this encounter Additional Health Concerns Infection Onset Date Last Indicated Resolved Time CoV-Exposed Comment:Recent close contact 05/13/2020 05/13/2020 05/27/2020 1:25 AM EST CoV-Exposed Comment:Recent close contact documented in the COVID-19 PCR/PRO order 02/01/2021 02/02/2021 02/26/2021 1:23 AM E DT documented as of this encounter Care Teams Field Laborer Relationship Specialty Start Date End Date Saeed Alvarez MD [address] [place] [address]. [address] [place], [place] [phone] [email or web address] PCP - General 05/02/17 07/19/21 Suzanne De Leon FNP [address] [place] [address] [address] [place] [address] [email or web address] PCP - General Family Medicine 07/20/21 Saeed Alvarez MD [address] [place] [address] [address] [place] [phone] [email or web address] Insurance Assigned Provider 09/10/15 Spencer Chamorro MD [address] [place] [address], [address] [place], [place] [address] [email or web address] Insurance Assigned Provider 10/13/22 Suzanne De Leon FNP [address] [place] [address], [address] [place] [address] [email or web address] Insurance Assigned Provider 10/11/24 documented as of this encounter Additional Source Comments The information contained in this document represents components of the legal health record. It is not the complete legal health record.[facility]
--- OUTSIDE RECORDS SUMMARY | 2025-03-03 13:10 | XMS_ITS | Encounter Summary ---
Author Organization [facility] Address [address] [place] [address] Phone Care Team Providers Care Therapeutic Recreation Director Name Role Phone Saeed Alvarez MD Unavailable Saeed Alvarez MD Primary Care Provider [phone] Suzanne De LeonP Primary Care Provider [phone] Spencer Chamorro MD Unavailable Suzanne De LeonP Unavailable Encounter Details Date Type Department Care Team (Late st Contact Info) Description 08/05/2019 Ancillary Orders Virtual Department [address] [place] [address] Saeed Alvarez MD [address] [place] [address] [address] [place] [id number] [email or web address] Breast screening Social History Tobacco Use Types Packs/Day Years [...] st Contact Info) Description 11/19/2024 Procedure Pass [facility], [address] [address] 06/16/2025 10:30 AM EST Appointment [address] [address] Suzanne De Leon FNP 234 [facility], [facility] 7 [place] [address] [email or web address] 08/03/2025 11:15 AM EST Appointment [facility] Bone Density [address] [address] Suzanne De Leon FNP 234 [facility], [facility] 7 [place] [address] [email or web address] documented as of this encounter Visit Diagnoses Diagnosis Breast screening Breast screening, unspecified documented in this encounter Additional Health Concerns Infection Onset Date Last Indicated Resolved Time CoV-Exposed Comment:Recent close contact 05/13/2020 05/13/2020 05/27/2020 1:25 AM EST CoV-Exposed Comment:Recent close contact documented in the COVID-19 PCR/PRO order 02/01/2021 02/02/2021 02/26/2021 1:23 AM E DT documented as of this encounter Care Teams Therapeutic Recreation Director Relationship Specialty Start Date End Date Saeed Alvarez MD [address] [place] [address] [address] [place] [phone] [email or web address] PCP - General 05/02/17 07/19/21 Suzanne De Leon FNP [address] [place] [address] 7 [place] [address] [email or web address] PCP - General Family Medicine 07/20/21 Saeed Alvarez MD [address] [place] [address] [address] [place] [phone] [email or web address] Insurance Assigned Provider 09/10/15 Spencer Chamorro MD [address] [place] [address], [address] [place] [address] [email or web address] Insurance Assigned Provider 10/13/22 Suzanne De Leon FNP [address] [place] [address], [address] [place] [address] [email or web address] Insurance Assigned Provider 10/11/24 documented as of this encounter Additional Source Comments The information contained in this document represents components of the legal health record. It is not the complete legal health record.[facility]
--- OUTSIDE RECORDS SUMMARY | 2025-03-03 13:10 | XMS_ITS | Encounter Summary ---
Author Organization [facility] Address [address] [facility] [place] [address] Phone Care Team Providers Care Cone Worker Name Role Phone Suzanne De Leno [facility] Primary Care Provider [phone] Suzanne De Leon [facility] Unavailable Reason for Visit * Reason Onset Date Comments Medication Refill 03/01/2025 levothyroxine (SYNTHROID, LEVOTHROID) 100 MCG tablet Encounter Details Date Type Department Care Team (Late st Contact Info) Description 03/01/2025 Refill [facility] 234 [place], [place] [id number] Suzanne De Leon G[employer] INSTALLER SUPERVISOR 234 [facility] 7 [place] [address] [email or web address] Medication Refill ( levothyroxine (SYNTHROID, LEVOTHROID) 100 MCG tablet /) Social History Tobacco Use Types Packs/Day Years [...] as of this encounter Progress Notes * Kamini Angeles - 03/01/2025 11:47 AM EDT Rx Care Gap Status - Instructions for Clinical Staff (prescriber discretion applies): > Mismatch review guide > At least one request does not meet full criteria. Specifics below. > No future appt: Please schedule if appropriate. > Labs due: Please remind patient. > No new orders needed. Labs due for pended Rx Requests: TSH Other labs due based on Medication List: Lipid panel Visit Info Last visit: 11/17/2024 Suzanne De Leon FNP - Family Medicine [facility] > Requested f/u: Return in about 1 year (around 11/17/2025) for MAWV. Upcoming visit: None ACTIONS TAKEN BY Kamini Angeles - Labs needed - Teed up orders and/or reminded pt. - Patient has existing lab order on file for TSH Thyroid Medication Rx Protocol - levothyroxine sodium Criteria not met; renew for up to 3 months. Visit in the past 14 months: Yes Clinical criteria: - TSH within past year: None (has active order) - Last TSH was normal: N/a Lab Results Component Value Date TSH 0.85 11/26/2023 No Health Maintenance Labs Overdue * Stephanie Rogers - 03/01/2025 11:37 AM EDT Pt caregiver called requesting l Central Support Talent Coordinator (Please do not reply to this user; this inbox is not monitored.) Thank you.evothyroxine (SYNTHROID, LEVOTHROID) 100 MCG tablet documented in this encounter Plan of Treatment Upcoming Encounters Date Type Department Care Team (Late st Contact Info) Description 11/19/2024 Procedure Pass [address] [address] 06/16/2025 10:30 AM EST Appointment [address] [address] Suzanne De Leon FNP [address] [address] 08/03/2025 11:15 AM EST Appointment [facility] Bone Density [address] [address] Suzanne De Leon FNP [address] [address] documented as of this encounter Visit Diagnoses Diagnosis Hypothyroidism, unspecified type documented in this encounter Additional Health Concerns Assessment Noted Time PHQ-2 Depression Total Score: 0 11/18/19 11:54 AM EDT documented as of this encounter Care Teams Cone Worker Relationship Specialty Start Date End Date Suzanne De Leon FNP [address] [place] [address] [email or web address] PCP - General Family Medicine 07/20/21 Suzanne De Leon FNP 234 [facility], [address] [place] [address] [email or web address] Insurance Assigned Provider 10/11/24 documented as of this encounter Additional Source Comments The information contained in this document represents components of the legal health record. It is not the complete legal health record.[facility]
--- OUTSIDE RECORDS SUMMARY | 2025-03-03 13:10 | XMS_ITS | Encounter Summary ---
Author Organization [facility] Address [address] [place] [address] Phone Care Team Providers Care Nurse Technician Name Role Phone Saeed Alvarez MD Unavailable [phone] Saeed Alvarez MD Primary Care Provider [phone] Suzanne De Leon [facility] Primary Care Provider [phone] Spencer Chamorro MD Unavailable Suzanne De Leon [facility] Unavailable Encounter Details Date Type Department Care Team (Late st Contact Info) Description 08/11/2018 Ancillary Orders [facility] Medicine 234 [place] [address] Saeed Alvarez MD 234 [facility]. [address] [place] [id number] [email or web address] Breast screening Social History Tobacco Use Types Packs/Day Years Used Date Smoking Tobacco: Never Smokeless Tobacco: Never Comments No Sex and Gender Information Value Date Recorded Sex Assigned at Female 03/28/2021 6:41 AM EDT Legal Sex Female 6:42 PM EST Gender Identity Female 03/28/2021 6:41 AM EDT Sexual Orientation Not on file documented as of this encounter Plan of Treatment Upcoming Encounters Date Type Department Care Team (Late st Contact Info) Description 11/19/2024 Procedure Pass [address] [address] 06/16/2025 10:30 AM EST Appointment [address] [address] Haley Suzanne Vann, [facility] 234 [facility], [address] [place] [address] [email or web address] 08/03/2025 11:15 AM EST Appointment [facility], Bone Density [address] [address] Suzanne De Leon Soo, [facility] 234 [facility], [address] [place] [address] [email or web address] documented as of this encounter Results * BI MAMMOGRAM SCREENING WITH TOMOSYNTHESIS WITH CAD (BILATERAL) (10/21/2018 2:18 PM EDT) Anatomical Region Laterality Modality Breast Left, Breast Right, Breast Bilateral Bila teral Mammography 10/22/2018 8:0 5 AM EDT Impressions 10/22/2018 8:07 AM EDT No mammographic change indicative of malignancy. Limited study, particularly on the left due to difficulty with positioning from patient's disability and requirement to be performed with the patient in a wheelchair. BI-RADS CATEGORY: 2 - Benign finding. DENSITY: The breast tissue is heterogeneously dense, an appearance which lowers the sensitivity of mammography. POS -[id number] Narrative 10/22/2018 8:07 AM EDT Bilateral full-field digital screening mammography is obtained and read in conjunction with computer-aided detection. Tomosynthesis as well as 2-D C view imaging of both breasts in two planes also obtained. Comparison made to multiple prior, most recent 10/15/2017, and most remote July 2012. Positioning is limited due to stroke with no pectoral fold included on the left. No dominant mass, architectural distortion, worrisome asymmetry, or suspicious calcification is identified. No skin or nipple finding of concern is appreciated. Scattered calcifications on the left in particular are stable. Procedure Note Nolan Manzo MD - 10/22/2018 Bilateral full-field digital screening mammography is obtained and read inconjunction with computer-aided detection. Tomosynthesis as well as 2-D Cview imaging of both breasts in two planes also obtained. Comparison madeto multiple prior, most recent 10/15/2017, and most remote July 2012.Positioning is limited due to stroke with no pectoral fold included on theleft. No dominant mass, architectural distortion, worrisome asymmetry, orsuspicious calcification is identified. No skin or nipple finding ofconcern is appreciated. Scattered calcifications on the left inparticular are stable. IMPRESSION: No mammographic change indicative of malignancy. Limited study,particularly on the left due to difficulty with positioning from patient'sdisability and requirement to be performed with the patient in awheelchair. BI-RADS CATEGORY: 2 - Benign finding. DENSITY: The breast tissue is heterogeneously dense, an appearance whichlowers the sensitivity of mammography. POS -[id number] Saeed Alvarez MD IMG MG EXAMS Final Res ult documented in this encounter Visit Diagnoses Diagnosis Breast screening Breast screening, unspecified Breast screening Breast screening, unspecified documented in this encounter Additional Health Concerns Infection Onset Date Last Indicated Resolved Time CoV-Exposed Comment:Recent close contact 05/13/2020 05/13/2020 05/27/2020 1:25 AM EST CoV-Exposed Comment:Recent close contact documented in the COVID-19 PCR/PRO order 02/01/2021 02/02/2021 02/26/2021 1:23 AM E DT documented as of this encounter Care Teams Nurse Technician Relationship Specialty Start Date End Date Saeed Alvarez MD [address] [place], [place] [address] [place] [phone] [email or web address] PCP - General 05/02/17 07/19/21 Suzanne DeL eon FNP [address] [place] [address], [address] [place] [address] [email or web address] PCP - General Family Medicine 07/20/21 Saeed Alvarez MD [address] [place] [address] [address] [place] [phone] [email or web address] Insurance Assigned Provider 09/10/15 Spencer Chamorro MD [address] [place] [address], [address] [place], [place] [address] [email or web address] Insurance Assigned Provider 10/13/22 Suzanne De Leon FNP [address] [place] [address], [address] [place] [address] [email or web address] Insurance Assigned Provider 10/11/24 documented as of this encounter Additional Source Comments The information contained in this document represents components of the legal health record. It is not the complete legal health record.[facility]
--- OUTSIDE RECORDS SUMMARY | 2025-03-03 13:10 | XMS_ITS | Encounter Summary ---
Author Organization [facility] Address [address] [place] [address] Phone Care Team Providers Care Wallpaper Consultant Name Role Phone Haley Suzanne Vann [facility] Primary Care Provider Spencer Chamorro MD Unavailable Suzanne De Leon [facility] Unavailable [phone] Encounter Details Date Type Department Care Team (Late st Contact Info) Description 12/19/2022 Procedure Pass [facility], Ct Scan - [address] [address] Social History Tobacco Use Types Packs/Day Years [...] with a working camera? Not on file Comments No Sex and Gender Information Value [...] st Contact Info) Description 11/19/2024 Procedure Pass [address] [address] 06/16/2025 10:30 AM EST Appointment [address] [address] Suzanne De Leon FNP [address] [place] [address] 08/03/2025 11:15 AM EST Appointment [facility] Bone Density [address] [address] Suzanne De Leon FNP [address] [place] [address] documented as of this encounter Visit Diagnoses Not on filedocumented in this encounter Additional Health Concerns Assessment Noted Time PHQ-2 Depression Total Score: 1 06/20/20 20 11:09 AM EST documented as of this encounter Care Teams Wallpaper Consultant Relationship Specialty Start Date End Date Suzanne De Leon FNP [address] [place] [address] [place] [address] PCP - General Family Medicine 07/20/21 Spencer Chamorro MD [address] [place] [address] Insurance Assigned Provider 10/13/22 Suzanne De Leon FNP [address] [place] [address], [address] [place] [address] [email or web address] Insurance Assigned Provider 10/11/24 documented as of this encounter Additional Source Comments The information contained in this document represents components of the legal health record. It is not the complete legal health record.[facility]
--- OUTSIDE RECORDS SUMMARY | 2025-03-03 13:10 | XMS_ITS | Encounter Summary ---
Author Organization [facility] Address [address] [facility] [address] [facility] [address] [place] [address] Phone Care Team Providers Care Attractions Associate Name Role Phone Saeed Alvarez MD Unavailable Suzanne De LeonP Primary Care Provider [phone] Spencer Chamorro MD Unavailable Suzanne De Leon Unavailable [phone] Encounter Details Date Type Department Care Team (Latest Contact Info) Description 09/06/2022 Transcribe Orders Virtual Department 30 [place] [address] Suzanne De Leon FNP [address] [place] [address] 7 [place] [address] [email or web address] Breast screening (Primary Dx) Social History Tobacco Use Types Packs/Day Years [...] st Contact Info) Description 11/19/2024 Procedure Pass [address] [address] 06/16/2025 10:30 AM EST Appointment [address] [address] Suzanne De Leon FNP 234 [facility], [facility] 7 [place] [address] 08/03/2025 11:15 AM EST Appointment [facility] Bone Density [address] [address] Suzanne De Leon FNP [address] [place] [address] 7 [place] [address] [email or web address] Scheduled Orders Name Type Priority Associated Diagnoses Orde r Schedule Mammogram Screening (Bilateral) Imaging Routine Breast screening Expected: 09/06/2022, Expires: 03/09/2025 documented as of this encounter Visit Diagnoses Diagnosis Breast screening- Primary Breast screening, unspecified documented in this encounter Additional Health Concerns Assessment Noted Time PHQ-2 Depression Total Score: 1 06/20/20 20 11:09 AM EST documented as of this encounter Care Teams Attractions Associate Relationship Specialty Start Date End Date Suzanne De Leon FNP [address] [place] [address] 7 [place] [address] [email or web address] PCP - General Family Medicine 07/20/21 Saeed lAvarez MD [address] [place] [address] [address] [place] [phone] [email or web address] Insurance Assigned Provider 09/10/15 Spencer Chamorro MD 234 [facility], [address] [place] [address] [email or web address] Insurance Assigned Provider 10/13/22 Suzanne De Leon FNP 234 [facility], [address] [place] [address] [email or web address] Insurance Assigned Provider 10/11/24 documented as of this encounter Additional Source Comments The information contained in this document represents components of the legal health record. It is not the complete legal health record.[facility]
--- OUTSIDE RECORDS SUMMARY | 2025-03-03 13:10 | XMS_ITS | Encounter Summary ---
Author Organization [facility] Address [address] [place] [address] Phone Care Team Providers Care Project Product Manager Name Role Phone Saeed Alvarez MD Unavailable Saeed Alvarez MD Primary Care Provider [phone] Suzanne De Leon [facility] Primary Care Provider [phone] Spencer Chamorro MD Unavailable Suzanne De LeonP Unavailable [phone] Reason for Referral * MRI/CAT Scan - Closed Specialty Diagnoses / Procedures Referred By Brent to Referred To Contact Radiology Diagnoses Memory loss Procedures MRI Brain Timmy Gomez MD Phone: tel: fax: [email or web address] Referral ID Status Reason Start Date Expiration Date Visits Re quested Visits Authorized [id number] Closed 02/24/2021 02/24/2022 1 1 Encounter Details Date Type Department Care Team (Latest Contact Info) Description 02/24/2021 Transcribe Orders Virtual Department [address] [place] [address] Timmy Gomez MD [address] [place] [address], [address] [place] [address] [email or web address] Memory loss (Primary Dx) Social History Tobacco Use Types [...] st Contact Info) Description 11/19/2024 Procedure Pass [address] [address] 06/16/2025 10:30 AM EST Appointment [address] [address] Suzanne De Leon, [address] [address] [email or web address] 08/03/2025 11:15 AM EST Appointment [facility] Bone [address] [address] Suzanne De Leon, [address] [address] [email or web address] documented as of this encounter Results * MRI BRAIN WITHOUT CONTRAST (05/16/2021 1:53 PM EST) Anatomical Region Laterality Modality Head Magnetic Resonan ce 05/16/2021 2:04 PM EST Impressions 05/16/2021 2:11 PM EST Extensive encephalomalacia throughout right cerebrum and left frontal lobe but without marked volume loss since prior CT study of 2015 and only minor change since 2007. Narrative 05/16/2021 2:11 PM EST HISTORY: Cognitive decline COMPARISON: Multiple prior studies, most recently a CT November 03, 2015. MRI March 16, 2008 TECHNIQUE: Exam performed on a 1.5 Raysa high-field MRI scanner. Axial T1, T2, susceptibility, T2 FLAIR and diffusion-weighted imaging with ADC map, sagittal T1 sequences were obtained. FINDINGS: Extensive bifrontal encephalomalacia as well as extensive right temporal and partial occipital encephalomalacia on the right again noted. Ex-vacuo enlargement of the right lateral ventricle appears similar. No ischemic changes or unexpected susceptibility effects. Right shunt catheter from the right occipital region has its tip at the anterior margin of the right lateral ventricle. No midline shift. Volume loss in the right cerebral peduncle again noted. White matter changes through the right cerebral white matter and left frontal region is consistent with post- traumatic lordosis. Scattered white matter lesions are seen elsewhere. Postoperative changes along the right calvarium are again noted. Some prominence at the posterior pituitary is unchanged. Cerebellar tonsils are not ectopic. No fluid in paranasal sinuses. There appear to be preserved flow voids in the major intracranial arteries and veins. Procedure Note Liam Escalante MD - 05/16/2021 HISTORY: Cognitive decline COMPARISON: Multiple prior studies, most recently a CT November 03, 2015. [id number] TECHNIQUE: Exam performed on a 1.5 Raysa high-field MRI scanner. AxialT1, T2, susceptibility, T2 FLAIR and diffusion-weighted imaging with ADCmap, sagittal T1 sequences were obtained. FINDINGS: Extensive bifrontal encephalomalacia as well as extensive right temporaland partial occipital encephalomalacia on the right again noted. Ex-vacuoenlargement of the right lateral ventricle appears similar. No ischemicchanges or unexpected susceptibility effects. Right shunt catheter fromthe right occipital region has its tip at the anterior margin of the rightlateral ventricle. No midline shift. Volume loss in the right cerebralpeduncle again noted. White matter changes through the right cerebralwhite matter and left frontal region is consistent with post-traumaticlordosis. Scattered white matter lesions are seen elsewhere. Postoperativechanges along the right calvarium are again noted. Some prominence at theposterior pituitary is unchanged. Cerebellar tonsils are not ectopic. Nofluid in paranasal sinuses. There appear to be preserved flow voids in themajor intracranial arteries and veins. IMPRESSION: Extensive encephalomalacia throughout right cerebrum and left frontal lobebut without marked volume loss since prior CT study of 2015 and only minorchange since 2007. us Timmy Gomez MD IMG MR HEAD/NECK Final Resul t documented in this encounter Visit Diagnoses Diagnosis Memory loss- Primary Memory loss documented in this encounter Additional Health Concerns Infection Onset Date Last Indicated Resolved Time CoV-Exposed Comment:Recent close contact documented in the COVID-19 PCR/PRO order 02/01/2021 02/02/2021 02/26/2021 1:23 AM E DT Assessment Noted Time PHQ-2 Depression Total Score: 1 06/20/20 20 11:09 AM EST documented as of this encounter Care Teams Project Product Manager Relationship Specialty Start Date End Date Saeed Alvarez MD [address] [place] [address] [address] [place] [phone] [email or web address] PCP - General 05/02/17 07/19/21 Suzanne De Leon FNP [address] [place] [address] 7 [place] [address] [email or web address] PCP - General Family Medicine 07/20/21 Saeed Alvarez MD [address] [place] [address] [address] [place] [phone] [email or web address] Insurance Assigned Provider 09/10/15 Spencer Chamorro MD [address] [place] [address] 7 [place] [address] [email or web address] Insurance Assigned Provider 10/13/22 Suzanne De Leon FNP [address] [place] [address] 7 [place] [address] [email or web address] Insurance Assigned Provider 10/11/24 documented as of this encounter Additional Source Comments The information contained in this document represents components of the legal health record. It is not the complete legal health record.[facility]
--- OUTSIDE RECORDS SUMMARY | 2025-03-03 13:10 | XMS_ITS | Encounter Summary ---
Author Organization [facility] Address [address] [place] [address] Phone Care Team Providers Care Fund Director Name Role Phone Saeed Alvarez MD Unavailable Saeed Alvarez MD Primary Care Provider [phone] Suzanne De LeonP Primary Care Provider Spencer Chamorro MD Unavailable Suzanne De LeonP Unavailable [phone] Encounter Details Date Type Department Care Team (Late st Contact Info) Description 03/28/2021 Procedure Pass OR Admitting Dept - Virtual Department [address] [place] [address] Social History Tobacco Use Types Packs/Day Years [...] on file documented as of this encounter Functional Status * Calculated C-SSRS Risk Score (Lifetime/Recent) Answer Date of Assessment Author No Risk Indicated 03/28/2021 7:46 PM EDT Jillian Johnson RN * [place] Suicide Severity Rating Scale (Screener/Recent Self-Report) Question Answer Date of Assessment Author 1. Wish to be (Past 1 Month) No 021 7:46 PM EDT Jillian Johnson RN 2. Non-Specific Active Suici phuc Thoughts (Past 1 Month) No 03/28/2021 7:46 PM EDT Hafsa Johnson RN 6. Suicidal Behavior (Lifetime) No 7:46 PM EDT Jillian Johnson RN documented as of this encounter Plan of Treatment Upcoming Encounters Date Type Department Care Team (Late st Contact Info) Description 11/19/2024 Procedure Pass [address] [address] 06/16/2025 10:30 AM EST Appointment [address] [address] Suzanne De Leon, [address] [place] [address] 08/03/2025 11:15 AM EST Appointment [address] [address] Suzanne De Leon, [address] [place] [address] documented as of this encounter Visit Diagnoses Not on filedocumented in this encounter Additional Health Concerns Assessment Noted Time PHQ-2 Depression Total Score: 1 06/20/20 20 11:09 AM EST documented as of this encounter Care Teams Fund Director Relationship Specialty Start Date End Date Saeed Alvarez MD [address] [place] [address] [address] [place] [address] [email or web address] PCP - General 05/02/17 07/19/21 Suzanne De Leon FNP [address] [place] [address], [address] [place] [address] [email or web address] PCP - General Family Medicine 07/20/21 Saeed Alvarez MD [address] [place] [address] [address] [place] [phone] [email or web address] Insurance Assigned Provider 09/10/15 Spencer Chamorro MD [address] [place] [address], [address] [place] [address] [email or web address] Insurance Assigned Provider 10/13/22 Suzanne De Leon FNP [address] [place] [address], [address] [place] [address] [email or web address] Insurance Assigned Provider 10/11/24 documented as of this encounter Additional Source Comments The information contained in this document represents components of the legal health record. It is not the complete legal health record.[facility]
--- OUTSIDE RECORDS SUMMARY | 2025-03-03 13:11 | XMS_ITS | Encounter Summary ---
Author Organization [facility] Address [address] [place] [address] Phone Care Team Providers Care Residential Appliance Repair Technician Name Role Phone Saeed Alvarez MD Unavailable [phone] Saeed Alvarez MD Primary Care Provider [phone] Suzanne De Leon [facility] Primary Care Provider Spencer Chamorro MD Unavailable Suzanne De Leon [facility] Unavailable Encounter Details Date Type Department Care Team (Late st Contact Info) Description 06/02/2021 Procedure Pass [facility], [facility] [address] [place] [address] Social History Tobacco Use Types Packs/Day Years [...] st Contact Info) Description 11/19/2024 Procedure Pass [address] [address] 06/16/2025 10:30 AM EST Appointment [address] [address] Suzanne De Leon [facility] 234 [facility] 7 [place] [address] [email or web address] 08/03/2025 11:15 AM EST Appointment [facility] Bone Density [address] [address] Suzanne De Leon FNP [address] [address] documented as of this encounter Visit Diagnoses Not on filedocumented in this encounter Additional Health Concerns Assessment Noted Time PHQ-2 Depression Total Score: 1 06/20/20 20 11:09 AM EST documented as of this encounter Care Teams Residential Appliance Repair Technician Relationship Specialty Start Date End Date Saeed Alvarez MD [address] [place] [address] [address] [place] [phone] [email or web address] PCP - General 05/02/17 07/19/21 Suzanne De Leon FNP [address] [place] [address] [place] [address] PCP - General Family Medicine 07/20/21 Saeed Alvarez MD [address] [place] [address] [address] [place] [id number] [email or web address] Insurance Assigned Provider 09/10/15 Spencer Chamorro MD [address] [place] [address] 7 [place] [address] [email or web address] Insurance Assigned Provider 10/13/22 Suzanne De Leon FNP [address] [place] [address] 7 [place] [address] [email or web address] Insurance Assigned Provider 10/11/24 documented as of this encounter Additional Source Comments The information contained in this document represents components of the legal health record. It is not the complete legal health record.[facility]
--- OUTSIDE RECORDS SUMMARY | 2025-03-03 13:11 | XMS_ITS | Encounter Summary ---
Author Organization [facility] Address [address] [place] [address] Phone Care Team Providers Care Director Of Email Marketing Name Role Phone Saeed Alvarez MD Unavailable [phone] Saeed Alvarez MD Primary Care Provider [phone] Suzanne De LeonP Primary Care Provider [phone] Spencer Chamorro MD Unavailable Suzanne De LeonP Unavailable [phone] Encounter Details Date Type Department Care Team (Late st Contact Info) Description 02/24/2021 Procedure Pass [facility], [address] [address] Social History Tobacco Use Types Packs/Day Years [...] Upcoming Encounters Date Type Department Care Team ([facility] st Contact Info) Description 11/19/2024 Procedure Pass [address] [address] 06/16/2025 10:30 AM EST Appointment [address] [address] Suzanne De Leon FNP [address] [place] [address] 7 [place] [address] 08/03/2025 11:15 AM EST Appointment [facility] Bone Density [address] [address] Suzanne De Leon [address] [place] [address] [email or web address] documented as of this encounter Visit Diagnoses Not on filedocumented in this encounter Additional Health Concerns Infection Onset Date Last Indicated Resolved Time CoV-Exposed Comment:Recent close contact documented in the COVID-19 PCR/PRO order 02/01/2021 02/02/2021 02/26/2021 1:23 AM E DT Assessment Noted Time PHQ-2 Depression Total Score: 1 06/20/20 20 11:09 AM EST documented as of this encounter Care Teams Director Of Email Marketing Relationship Specialty Start Date End Date Saeed Alvarez MD [address] [place], [place] [address] [place] [address] [email or web address] PCP - General 05/02/17 07/19/21 Suzanne De Leon FNP [address] [place] [address] 7 [place] [address] [email or web address] PCP - General Family Medicine 07/20/21 Saeed Alvarez MD [address] [place] [address] [address] [place] [phone] [email or web address] Insurance Assigned Provider 09/10/15 Spencer Chamorro MD [address] [place] [address], [address] [place] [address] [email or web address] Insurance Assigned Provider 10/13/22 Suzanne De Leon FNP [address] [place] [address], [address] [place] [address] [email or web address] Insurance Assigned Provider 10/11/24 documented as of this encounter Additional Source Comments The information contained in this document represents components of the legal health record. It is not the complete legal health record.[facility]
--- OUTSIDE RECORDS SUMMARY | 2025-03-03 13:11 | XMS_ITS | Encounter Summary ---
Author Organization [facility] Address [address] [place] [address] Phone Care Team Providers Care Lagging Machine Operator Name Role Phone Saeed Alvarez MD Unavailable Saeed Alvarez MD Primary Care Provider [phone] Suzanne De Leon [facility] Primary Care Provider Spencer Chamorro MD Unavailable Suzanne De Leon [facility] Unavailable [phone] Encounter Details Date Type Department Care Team (Late st Contact Info) Description 07/31/2017 Ancillary Orders [facility] Medicine [address] [place] [address] Saeed Alvarez MD 234 [facility]. [address] [place] [address] [email or web address] Breast screening Social History Tobacco Use Types Packs/Day Years Used Date Smoking Tobacco: Never Assessed Comments Unknown Sex and Gender Information Value Date Recorded Sex Assigned at Female 03/28/2021 6:41 AM EDT Legal Sex Female 6:42 PM EST Gender Identity Female 03/28/2021 6:41 AM EDT Sexual Orientation Not on file documented as of this encounter Plan of Treatment Upcoming Encounters Date Type Department Care Team (Late st Contact Info) Description 11/19/2024 Procedure Pass [address] [address] 06/16/2025 10:30 AM EST Appointment [address] [address] [place] Suzanne Vann, [facility] [address] [facility] [address] [place] [address] [email or web address] 08/03/2025 11:15 AM EST Appointment [facility], Bone Density [address] [address] Suzanne De Leon Soo, [address], [facility] 7 [place] [address] documented as of this encounter Results * BI MAMMOGRAM SCREENING WITH TOMOSYNTHESIS WITH CAD (BILATERAL) (10/15/2017 10:26 AM EDT) Anatomical Region Laterality Modality Breast Left, Breast Right, Breast Bilateral Bila teral Mammography 10/15/2017 11:0 2 AM EDT Impressions 10/15/2017 11:05 AM EDT Stable appearance relative to prior imaging. No findings suggestive of malignancy are seen. BI-RADS CATEGORY: 2 - Benign finding. DENSITY: The breast tissue is heterogeneously dense, an appearance which lowers the sensitivity of mammography. POS - [id number] Narrative 10/15/2017 11:05 AM EDT Full-field digital mammography is obtained with computer-aided detection. Comparison with prior imaging from 08/28/2016 is made with older imaging dating back as far as 07/13/2011 also reviewed. There is heterogeneous fibroglandular density evident in the breasts. In addition to 2-D C view imaging, tomosynthesis images are obtained in two projections of each breast. There is scattered calcifications in the outer left breast which are stable.. No dominant soft tissue mass of concern, suspicious cluster of calcifications, significant interval skin changes, or architectural distortion is identified. Procedure Note Zhen Jarrett MD - 10/15/2017 Full-field digital mammography is obtained with computer-aided detection.Comparison with prior imaging from 08/28/2016 is made with older imagingdating back as far as 07/13/2011 also reviewed. There is heterogeneous fibroglandular density evident in the breasts. Inaddition to 2-D C view imaging, tomosynthesis images are obtained in twoprojections of each breast. There is scattered calcifications in the outer left breast which arestable.. No dominant soft tissue mass of concern, suspicious cluster ofcalcifications, significant interval skin changes, or architecturaldistortion is identified. IMPRESSION: Stable appearance relative to prior imaging. No findings suggestive ofmalignancy are seen. BI-RADS CATEGORY: 2 - Benign finding. DENSITY: The breast tissue is heterogeneously dense, an appearance whichlowers the sensitivity of mammography. POS - [id number] Saeed Alvarez MD IMG MG EXAMS Final [...] documented as of this encounter Care Teams Lagging Machine Operator Relationship Specialty Start Date End Date Saeed Alvarez MD [address] [place] [address] [address] [place] [phone] [email or web address] PCP - General 05/02/17 07/19/21 Suzanne De Leon FNP [address] [place] [address], [address] [place] [address] [email or web address] PCP - General Family Medicine 07/20/21 Saeed Alvarez MD [address] [place] [address] [address] [place] [phone] [email or web address] Insurance Assigned Provider 09/10/15 Spencer Chamorro MD [address] [place] [address], [address] [place] [address] [email or web address] Insurance Assigned Provider 10/13/22 Suzanne De Leon FNP [address] [place] [address], [address] [place] [address] [email or web address] Insurance Assigned Provider 10/11/24 documented as of this encounter Additional Source Comments The information contained in this document represents components of the legal health record. It is not the complete legal health record.[facility]
--- OUTSIDE RECORDS SUMMARY | 2025-03-03 13:11 | XMS_ITS | Encounter Summary ---
Author Organization [facility] Address [address] [place] [address] Phone Care Team Providers Care Automatic Washer Mechanic Name Role Phone Suzanne De Leon [facility] Primary Care Provider [phone] Suzanne De Leon [facility] Unavailable [phone] Encounter Details Date Type Department Care Team (Late st Contact Info) Description 12/08/2024 Procedure Pass [facility] Admitting Dept Virtual Department [address] [place] [address] Social History Tobacco Use Types Packs/Day Years [...] st Contact Info) Description 11/19/2024 Procedure Pass [address] [address] 06/16/2025 10:30 AM EST Appointment [address] [address] Suzanne De Leon FNP [address] [place] [address] [email or web address] 08/03/2025 11:15 AM EST Appointment [facility] Bone Density [address] [address] Suzanne De Leon FNP [address] [address] documented as of this encounter Visit Diagnoses Not on filedocumented in this encounter Additional Health Concerns Assessment Noted Time PHQ-2 Depression Total Score: 0 11/18/19 25 11:54 AM EDT documented as of this encounter Care Teams Automatic Washer Mechanic Relationship Specialty Start Date End Date Suzanne De Leon FNP [address] [place] [address] [email or web address] PCP - General Family Medicine 07/20/21 Suzanne De Leon FNP [address] [place] [address] 7 [place] [address] [email or web address] Insurance Assigned Provider 10/11/24 documented as of this encounter Additional Source Comments The information contained in this document represents components of the legal health record. It is not the complete legal health record.[facility]
--- OUTSIDE RECORDS SUMMARY | 2025-03-03 13:11 | XMS_ITS | Encounter Summary ---
Author Organization [facility] Address [address] [place] [address] Phone Care Team Providers Care Stock Crane Operator Name Role Phone Suzanne De Leon [facility] Primary Care Provider [phone] Suzanne De Leon [facility] Unavailable [phone] Encounter Details Date Type Department Care Team (Late st Contact Info) Description 10/08/2023 Procedure Pass [facility], [address] [address] Social History Tobacco Use Types Packs/Day Years [...] as food, clothing, or medical care? No 10/08/2023 In the past 12 months have y ou been in a relationship with a person who hurts, threatens, or tries to control you? No 10/08/2023 Are you denied basic needs s uch as food, clothing, or medical care? No 10/08/2023 In the past 12 months have y ou been in a relationship with a person who hurts, threatens, or tries to control you? No 10/08/2023 Comments No Sex and Gender Information Value [...] st Contact Info) Description 11/19/2024 Procedure Pass [address] [address] 06/16/2025 10:30 AM EST Appointment [address] [address] Suzanne De Leon FNP [address] [place] [id number] [email or web address] 08/03/2025 11:15 AM EST Appointment [address] [address] Suzanne De Leon FNP [address] [place] [phone] documented as of this encounter Visit Diagnoses Not on filedocumented in this encounter Additional Health Concerns Assessment Noted Time PHQ-2 Depression Total Score: 0 10/08/19 24 11:24 AM EDT documented as of this encounter Care Teams Stock Crane Operator Relationship Specialty Start Date End Date Suzanne De Leon FNP [address] [place] [phone] [email or web address] PCP - General Family Medicine 07/20/21 Suzanne De Leon FNP [address] [place] [address] 7 [place] [address] [email or web address] Insurance Assigned Provider 10/11/24 documented as of this encounter Additional Source Comments The information contained in this document represents components of the legal health record. It is not the complete legal health record.[facility]
--- OUTSIDE RECORDS SUMMARY | 2025-03-03 13:11 | XMS_ITS | Clinical Summary ---
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 HISTORY Special screening for malignant neoplasms, colon [Z12.11] SPECIMENS SUBMITTED: A: DEESCENDING COLON, POLYP GROSS DESCRIPTION DESCENDING COLON, POLYP: Received in formalin is a 0.5 x 0.4 x 0.2 cm irregular portion of ortiz-pink mucosal tissue which is submitted in toto in a single cassette labeled A1. Grossed by: LASHON Coffman, RYAN(ASCP) [id number] 12/08/2024 Grossing Staff: [id number] Patient Name: SAJI JULIAN : 1965 (Age: 59) Sex: F Institution: [facility] Location: [facility] Date of Operation: 12/08/2024 Date of Reported: 12/09/2024 15:15 Results To: Jeanine DUNCAN us Jeanine Santizo MD PATHOLOGY ORDERABLES Final Re sult SEE NARRATIVE * BI MAMMOGRAM SCREENING WITH TOMOSYNTHESIS WITH CAD (BILATERAL) (12/24/2023 11:26 AM EDT) Anatomical Region Laterality Modality Breast Left, Breast Right, Breast Bilateral Bila teral Mammography 12/26/2023 3:50 PM EDT Impressions 12/26/2023 3:52 PM EDT No mammographic evidence of malignancy in either breast. Annual screening mammography is recommended. BI-RADS 1 NEGATIVE The patient will be notified of the results and recommendations. Narrative 12/26/2023 3:52 PM EDT BI MAMMOGRAM SCREENING WITH TOMOSYNTHESIS WITH CAD (BILATERAL) Additional patient information: Screening. COMPARISON: Comparison is made with relevant prior imaging. Breast composition: The breast tissue is heterogeneously dense which may obscure small masses. FINDINGS: There has been no change in the mammographic findings since previous examination. No abnormal masses, suspicious calcifications, or other significant findings are identified mammographically in either breast. Procedure Note Rick Eric MD - 12/26/2023 BI MAMMOGRAM SCREENING WITH TOMOSYNTHESIS WITH CAD (BILATERAL) Additional patient information: Screening. COMPARISON: Comparison is made with relevant prior imaging. Breast composition: The breast tissue is heterogeneously dense which mayobscure small masses. FINDINGS: There has been no change in the mammographic findings since previousexamination. No abnormal masses, suspicious calcifications, or other significantfindings are identified mammographically in either breast. IMPRESSION: No mammographic evidence of malignancy in either breast. Annual screening mammography is recommended. BI-RADS 1 NEGATIVE The patient will be notified of the results and recommendations. Suzanne Vann [facility] WOOLING MACHINE OPERATOR IMG MG EXAMS Final Result * (ABNORMAL) Lipid panel (12/03/2023 10:10 AM EDT) HDL 44 mg/dL [facility] Comment: Interpretation <40 mg/dL: Low HDL cholesterol (major risk factor for CHD) Greater than or equal to 60 mg/dL: High HDL cholesterol ( negative risk factor for CHD) HDL - cholesterol is affected by a number of factors, e.g. smoking, excerise, hormones, sex and age. CHOLESTEROL 278(H) 0 - 240 mg/dL [facility] TRIGLYCERIDES 222(H) 30 - 160 mg/dL [facility] LDL 190(H) 50 - 129 mg/dL [facility] Comment: LDL levels in terms of risk for coronary heart disease: <100 mg/dL: Optimal 100-129 mg/dL: Near or above optimal 130-159 mg/dL: Borderline high 160-189 mg/dL: High >190 mg/dL: Very High CARDIAC RISK RATIO 6.3(H) 3.3 - 4.4 C [facility] Blood 12/03/2023 10:1 0 AM EDT 12/03/2023 10:20 AM EDT Suzanne [facility] LAB BLOOD ORDERABLES Final Re sult Performing Organization Address City/[facility]/ZIP Co de Phone Number [address] [address] * TSH with reflex (11/26/2023 11:36 AM EDT) TSH 0.85 0.27 - 4.20 uIU/mL [facility] Blood 11/26/2023 11:3 6 AM EDT 11/26/2023 11:38 AM EDT [facility] LAB BLOOD ORDERABLES Final Re sult Performing Organization Address [facility] Co de Phone Number [address] [address] * Pap Test (10/08/2023 12:00 AM EDT) 10/08/2023 10/09/2023 9:3 6 AM EDT Narrative SEE NARRATIVE - 10/15/2023 11:11 AM EDT [address] [address] Steward Dishwasher: Shonda Cruz MD [facility] [facility] Cytology Report FINAL DIAGNOSIS A. PAP SMEAR (SUREPATH) CE: SPECIMEN ADEQUACY: Satisfactory for evaluation; transformation zone present. INTERPRETATION: NEGATIVE FOR INTRAEPITHELIAL LESION OR MALIGNANCY. Electronically Signed Out By: VIDHYA Ceron(ASCP) The Pap test is a screening test primarily for squamous cancers and precursors and has associated false-negative and false-positive results. New technologies such as liquid-based preparations may decrease but will not eliminate all false-negative results. Regular sampling and follow-up of unexplained clinical signs and symptoms are recommended to minimize false negative results. PROCEDURES/ADDENDA HPV Testing (Requested) Ordered Date: 10/09/2023 A. PAP SMEAR (SUREPATH) CE: Human Papilloma Virus Test NEGATIVE for high-risk Human Papilloma Virus types 16, 18, 45 and the Other high risk probe set (Includes 31, 33, 35, 39, 51, 52, 56, 58, 59, 66, 68) Note: Testing performed by [employer] Onclarity HR-HPV analysis. Clinical correlation is advised. This HPV test was performed at [facility], [address] [place] [address]. This test has been FDA approved for both SurePath and ThinPrep cervical cytology specimens. The accuracy and precision of this test for all other specimen sources has been verified in the Cytopathology Laboratory of the [facility] and has not been cleared or approved by the U.S. Food and Drug Administration. Clinical correlation is advised. CLINICAL HISTORY Date of Last Menstrual Period: Not Provided Menstrual History: Post Menopausal Other Clinical Conditions: Screening Pap SPECIMEN SOURCE A: PAP SMEAR (SUREPATH) CE Patient Name: SAJI JULIAN : 1965 (Age: 58) Sex: F Institution: [facility] Location: [facility] Date of Collection: 10/08/2023 Date of Reported: 10/15/2023 11:11 Results to: Suzanne De Leon MSN us Suzanne De Leon WOOLING MACHINE OPERATOR CYTOLOGY ORDERABLES Final Res ult SEE NARRATIVE * BD DXA AXIAL (SPINE) WITH HIP (08/15/2021 1:35 PM EST) Anatomical Region Laterality Modality Bone Density Bone Density 08/15/2021 2:52 PM EST Impressions 08/15/2021 2:54 PM EST 1.Interval right femoral neck osteopenia. 2.Right total hip osteopenia and normal lumbar spine bone density with minimal decrease in bone density since 2008. Narrative 08/15/2021 2:54 PM EST COMPARISON: 09/16/2008. BONE DENSITY FINDINGS: History: This is a 56-year-old postmenopausal female. Evaluation of the lumbar spine and right hip was performed and felt to be technically adequate. Interval left hip replacement. L1-L4 vertebral bodies total bone mineral density was calculated at 0.970 gm/cm2 with a T-score of -0.7 falling within the WHO classification of normal-unchanged. Z-score of 0.5. 6.7% decrease in bone density which is statistically significant. Right femoral neck bone mineral density was calculated at 0.636 gm/cm2 with a T- score of -1.9 falling within the WHO classification of osteopenia-previously normal. Z-score of -0.8. Total Right hip bone mineral density was calculated at 0.727 gm/cm2 with a T- score of -1.8 falling within the WHO classification of osteopenia-unchanged. Z-score of -1. 8% decrease in bone density which is statistically significant. Procedure Note Herbert Rojo MD - 08/15/2021 COMPARISON: 09/16/2008. BONE DENSITY FINDINGS: History: This is a 56-year-old postmenopausal female. Evaluation of the lumbar spine and right hip was performed and felt to betechnically adequate. Interval left hip replacement. L1-L4 vertebral bodies total bone mineral density was calculated at 0.970gm/cm2 with a T-score of -0.7 falling within the WHO classification ofnormal-unchanged. Z- score of 0.5. 6.7% decrease in bone density whichis statistically significant. Right femoral neck bone mineral density was calculated at 0.636 gm/pk3qvzw a T- score of -1.9 falling within the WHO classification ofosteopenia-previously normal. Z- score of -0.8. Total Right hip bone mineral density was calculated at 0.727 gm/cm2 with aT- score of -1.8 falling within the WHO classification ofosteopenia-unchanged. Z-score of - 1. 8% decrease in bone density whichis statistically significant. IMPRESSION: 1.Interval right femoral neck osteopenia. 2.Right total hip osteopenia and normal lumbar spine bone density withminimal decrease in bone density since 2008. Brigida Elmore TAX EXAMINER IMG BD BONE DENSITY DEXA F inal Result * Hepatitis C antibody, qualitative (11/11/2018 11:21 AM EDT) HCV Negative Negative [facility] Comment: This is a screening test and should be confirmed with molecular testing Blood 11/11/2018 11:2 1 AM EDT 11/11/2018 11:25 AM EDT us Saeed Alvarez MD LAB BLOOD ORDERABLES Donna nallely Result [facility] [address] [place] [address] from Last 3 Months or Most Recently Relevant to Health Maintenance Insurance MEDICARE PART A & B [facility] MEDICARE PART A & B [facility] MEDICARE PART A & B [facility] MEDICARE PART A & B Member Subscriber Plan / Payer (Ef fective 1984-Present) Name:Saji Julian Member ID:[id number] Relation to Subscriber:Self Name:Saji Julian Subscriber ID:[id number] Payer ID:[id number] Group ID:Not on file Type:Medicare Address: [employer] ([employer]) [address] [place] [phone] [facility] & B [place] MED[place] PART A & B Member Subscriber Plan / Payer (Ef fective 1984-Present) Name:Saji Julian Member ID:[id number] Relation to Subscriber:Self Name:Saji Julian Subscriber ID:[id number] Payer ID:[id number] Group ID:Not on file Type:Medicare Address: [facility] [employer] [facility] [address] [place], [place] [phone] [facility] Advance Directives For more information, please contact: [phone] (9AM - 5PM Sh[facility], Saturday-Saturday) Documents on File Type Date Recorded Patient Ship Engineer Expl anation Healthcare Proxy 04/04/2021 9:10 AM Durable Power of Rn Interventional 04/04/2021 9:10 AM * Full Code (Latest Code Status on File) Date Activated Date Inactivated Comments 03/28/2021 7:34 PM Question Answer Comments Code Status Confirmed With: Patient * Full Code Date Activated Date Inactivated Comments 03/28/2021 7:30 PM 03/28/2021 7:34 PM Question Answer Comments Code Status Confirmed With: PatientSurrogate Code Discussion Comments: long term staff Healthcare Agents on File Name Relationship Healthcare Agent [facility] Communication Afua Alvarenga Sister .Primary Health Care Agent (Proxy form on file) Care Teams Automatic Beading Lathe Operator Relationship Specialty Start Date End Date ClaytonSuzanne jo FNP [address] [facility] [address] [place] [address] [email or web address] PCP - General Family Medicine 07/20/21 Suzanne De Leon FNP [address] [facility] [address] [place] [address] [email or web address] Insurance Assigned Provider 10/11/24 Additional Source Comments The information contained in this document represents components of the legal health record. It is not the complete legal health record.[facility]
--- OUTSIDE RECORDS SUMMARY | 2025-03-03 13:11 | XMS_ITS | Encounter Summary ---
Author Organization [facility] Address [address] [place] [address] Phone Care Team Providers Care Agency Service Representative Name Role Phone Suzanne De Leon [facility] Primary Care Provider [phone] Suzanne De Leon ELECTRICIAN Unavailable [phone] Encounter Details Date Type Department Care Team (Late st Contact Info) Description 01/21/2024 Procedure Pass [facility] Endoscopy Admitting Dept Virtual Department [address] [place] [address] Social History Tobacco Use Types Packs/Day Years [...] st Contact Info) Description 11/19/2024 Procedure Pass [address] [address] 06/16/2025 10:30 AM EST Appointment [address] [address] Suzanne De Leon FNP [address] [place] [id number] 08/03/2025 11:15 AM EST Appointment [facility] Bone Density [address] [address] Suzanne De Leon FNP [address] [address] documented as of this encounter Visit Diagnoses Not on filedocumented in this encounter Additional Health Concerns Assessment Noted Time PHQ-2 Depression Total Score: 0 10/08/19 24 11:24 AM EDT documented as of this encounter Care Teams Agency Service Representative Relationship Specialty Start Date End Date Suzanne De Leon FNP [address] [place] [address] [email or web address] PCP - General Family Medicine 07/20/21 Suzanne De Leon FNP [address] [place] [address] [address] [place] [address] [email or web address] Insurance Assigned Provider 10/11/24 documented as of this encounter Additional Source Comments The information contained in this document represents components of the legal health record. It is not the complete legal health record.[facility]
--- NOTE | 2025-03-03 14:14 | ECG_ITS ---
Test Reason : MEDICAL CLEARANCE Blood Pressure : */* mmHG Vent. Rate : 96 BPM Atrial Rate : 96 BPM P-R Int : 130 ms QRS Dur : 70 ms QT Int : 388 ms P-R-T Axes : 52 -1 31 degrees QTcB Int : 490 ms Normal sinus rhythm Normal ECG No previous ECGs available Referred By: Norma García Electronically Signed By: MANA CORRAL
[2025-03-03 15:14] LABS: MANUAL DIFF FLAG NO
[2025-03-03 15:17] LABS: Hematocrit 36.2 % (37.0-47.0); Hemoglobin 11.7 g/dl (12.0-16.0); Imm Gran Abs Auto 0.05 X10*3/uL (0.00-0.03); Imm Gran Pct Auto 0.5 % (0.0-0.4); Lymphocytes Absolute Auto 1.8 X10*3/uL (1.2-4.9); Mean Corpuscular HGB Conc 32.3 g/dl (31.0-35.0); Mean Corpuscular Hemoglobin 28.0 pg (27.0-33.0); Mean Corpuscular Volume 86.6 fL (80.0-98.0); NRBC Abs Auto 0.000 X10*3/uL (0.0-0.012); NRBC Pct Auto 0.0 /100WBC (0.0-0.2); Platelet Count 306 X10*3/uL (160-400); Red Blood Count 4.18 X10*6/uL (4.20-5.50); White Blood Count 10.8 X10*3/uL (4.8-10.8)
[2025-03-03 15:36] LABS: Anion Gap 13 (12-20); Blood Urea Nitrogen 12 mg/dL (9-16); Calcium 9.2 mg/dL (8.4-10.2); Carbon Dioxide 29 mmol/L (22-29); Chloride 105 mmol/L (96-108); Creatinine Clr Calc Pharmacy 100.1; Estimated Glomerular Filt Rate > 60; Potassium 4.0 mmol/L (3.3-5.1); Sodium 143 mmol/L (135-145)
--- NOTE | 2025-03-03 16:53 | PC.NURSE ---
Afua Thomas ([facility]) cell phone # .
[2025-03-03 17:15] VITALS: BP 144/81; PULSE 97; RESP 17; TEMP 36.4; O2SAT 95
[2025-03-03 17:30] LABS: Appearance Urine Hazy; Glucose Urine UA Negative (Negative); PH 6.5 (5.0-9.0); Specific Gravity - Urine 1.015 (1.005-1.025); UMIC TRIGGER UACC YES
[2025-03-03 18:00] LABS: UACC Culture Trigger YES
--- NOTE | 2025-03-03 19:00 | PC.NURSE ---
attempted to place pt's left knee into immobilizer - pt has difficulty w/ extending LLE baseline so was difficult to place. while attempting to place immobilizer, tech states that she heard a pop. provider notified/aware. splint applied to LLE by provider. pt tolerated well. pt continues to pending PT/CM consult at this time. plan of care ongoing.
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
[2025-03-03 22:00] VITALS: BP 119/66; PULSE 108; RESP 20; TEMP 37.1; O2SAT 99
--- NOTE | 2025-03-03 22:05 | PHA.MEDREC ---
Pharmacy Consult ? Medication Reconciliation Pharmacy has reviewed the medication reconciliation done by nursing, made corrections using med list from [facility].
[2025-03-04 04:59] VITALS: BP 145/74; PULSE 54; RESP 18; TEMP 36.5; O2SAT 98
[2025-03-04 09:03] VITALS: BP 145/74; PULSE 54; O2SAT 98
[2025-03-04] MEDS: oxyBUTYnin chloride ER 5 MG TAB.ER.24 10 MG PO (09:13)
[2025-03-04] MEDS: Calcium Oyster Shell Elemental 500 MG TABLET PO (09:14)
[2025-03-04 11:42] LABS: Resp Syncy Virus RNA Qual PCR NEGATIVE (Negative); SARS COV2 PCR INHOUSE NEGATIVE (Negative)
--- NOTE | 2025-03-04 12:53 | MHC.CM.ED ---
Addendum entered by Humera Izquierdo 03/04/25 13:05: Received telephone call from Afua. Accept bed at [facility]. Level 1 and MDS will be completed and sent to EC and facility. Original Note: Patient remains in ER overflow. Physical therapy eval completed. Short term rehab is recommended. [facility], [place], [facility], [address] [place] [address], [facility], [facility], [facility] and [facility] are able to offer a bed. Met with patient in regards to discharge planning. Patient requesting her sister, Afua, decide which facility. Spoke with Afua via telephone at [phone]. List of bed offers provided. Afua requesting to speak to someone from [facility]. [facility] made aware and will reach out to Afua. Spoke with Sarah of [facility] via telephone at [phone]. Patient is not active with [facility] or [facility]. She is a part of [employer]. Continue to monitor for d/c needs.
[2025-03-04 14:00] VITALS: BP 140/51; PULSE 118; RESP 16; TEMP 37.4; O2SAT 94
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
[2025-03-04 22:00] VITALS: BP 124/50; PULSE 104; RESP 18; TEMP 36.3; O2SAT 90
[2025-03-05 05:45] VITALS: BP 103/62; PULSE 92; RESP 16; TEMP 36.6; O2SAT 93
--- NOTE | 2025-03-05 09:29 | MHC.CM.ED ---
Addendum entered by Humera Izquierdo 03/05/25 12:54: Ortho follow up scheduled for 03/18 at 11am. Addendum entered by Humera Izquierdo 03/05/25 10:17: Patient will d/c to [facility] via BLS at 2pm. Sirisha CASTANEDA booked. [facility] with chart. Patient, sister Afua, Laya RN and Beth DAVIS aware. Original Note: Patient remains in ER overflow. Received telephone call from patient's sister/HCP, Afua. Afua is concerned about patient going to [facility] because Afua has been having difficulty getting in touch with people at the facility. Would like to take the bed at [facility] if there is still a bed available. Spoke with [facility]. There is a bed available on their LTC unit. They will try to transfer patient to their STR as soon as a bed opens up. Patient will still be treated as a STR patient. Afua aware and agreeable. Akanksha from [facility] made aware and will fax level to [facility] when available. [facility] made aware. Continue to monitor for d/c needs.
[2025-03-05] MEDS: oxyBUTYnin chloride ER 5 MG TAB.ER.24 10 MG PO (09:45)
[2025-03-05] MEDS: Calcium Oyster Shell Elemental 500 MG TABLET PO (09:48)
--- NOTE | 2025-03-05 13:24 | PC.NURSE ---
report given to [facility]
== END 2025-03-05 13:25 ==
PROVIDERS: Emergency Provider Emergency Medicine; PCP Nurse Practitioner Family
DX: S72.402A Unspecified fracture of lower end of left femur, initial encounter for closed fracture (principal); X58.XXXA Exposure to other specified factors, initial encounter; Y93.9 Activity, unspecified; Y92.9 Unspecified place or not applicable; N39.0 Urinary tract infection, site not specified; M17.12 Unilateral primary osteoarthritis, left knee; Z03.818 Encounter for observation for suspected exposure to other biological agents ruled out
CPT/HCPCS: 29505; 36415; 71045; 73560; 80048; 81001; 85025; 87086; 87088; 87186; 87637; 93005; 97162; 99285

== ENCOUNTER → 2025-03-03 12:32 | Outpatient (BNV) | payer MEDICARE, MEDICAID, SELFPAY | PROVIDERS: Emergency Provider Emergency Medicine; Visit Provider Radiology Diagnostic Radiology | DX: M47.814 Spondylosis without myelopathy or radiculopathy, thoracic region (principal) | CPT/HCPCS: 71045 ==

== ENCOUNTER → 2025-03-03 14:14 | Outpatient (BNV) | payer MEDICARE, MEDICAID, SELFPAY | PROVIDERS: Emergency Provider Emergency Medicine; Visit Provider Internal Medicine | DX: Z13.6 Encounter for screening for cardiovascular disorders (principal) | CPT/HCPCS: 93010 ==

== ENCOUNTER 2025-03-18 11:19 | Outpatient (REF) | payer MEDICARE, MEDICAID, SELFPAY ==
--- NOTE | ~2025-03-18 | XR_ITS ---
EXAMINATION: XR FEMUR, LEFT CLINICAL INFORMATION: M79.606 - Pain in leg, unspecified, femur fracture COMPARISON: March 03, 2025 TECHNIQUE: AP and lateral views of the left femur were obtained. FINDINGS: Again seen is a complex fracture of the distal femur. On the crosstable lateral, there is gross displacement with 55 degrees posterior angular deformity of the distal femur relative to the proximal diaphysis. There is also 3 cm overlap of the posterior distal femoral diaphysis with a triangular-shaped butterfly fragment in the anterior supratrochlear region. On a second oblique image, there appears to be a splint over the distal thigh and lower leg with improved alignment across the fracture. Proximal femur demonstrates changes associated with total hip replacement. XR/XR femur LT 2V IMPRESSION: Two slightly oblique lateral images of the femur were submitted. The order in which the images was taken is not documented. On one image, there is 55 degrees posterior angulation of the femur distal to the fracture with 3 cm overlap. On the second image, there is improved alignment consistent with an unstable fracture. Electronically signed by: Francois Luna MD 03/18/2025 01:02 PM EDT
== END 2025-03-18 11:20 | disposition home or self-care (01) ==
LOC: HO.HOSX 11:19
PROVIDERS: PCP Nurse Practitioner Family; Visit Provider Physician Assistant
DX: S72.402A Unspecified fracture of lower end of left femur, initial encounter for closed fracture (principal); M79.605 Pain in left leg; X58.XXXA Exposure to other specified factors, initial encounter
CPT/HCPCS: 73552

== ENCOUNTER → 2025-03-18 11:27 | Outpatient (BNV) | payer MEDICARE, MEDICAID, SELFPAY | PROVIDERS: PCP Nurse Practitioner Family; Visit Provider Radiology Diagnostic Radiology | DX: S72.462A Displaced supracondylar fracture with intracondylar extension of lower end of left femur, initial encounter for closed fracture (principal) | CPT/HCPCS: 73552 ==

== ENCOUNTER 2025-03-18 12:25 | Emergency (ER) | payer MEDICARE, MEDICAID, SELFPAY ==
[2025-03-18 12:32] VITALS: BP 103/41; PULSE 105; RESP 18; TEMP 37.1; O2SAT 94; BMI 29.3
--- NOTE | 2025-03-18 12:35 | ED.GENADULT ---
HPI - General Adult General Chief complaint: Extremity Injury, Lower Stated complaint: leg pain Time Seen by Provider: 03/18/25 12:34 Source: patient, RN notes reviewed and old records reviewed Mode of arrival: wheelchair Limitations: physical limitation and other History of Present Illness ED Provider: Marlene HPI narrative: Patient is a 60-year-old female with history of CVA with subsequent hemiplegia and hemiparesis, distal right femur fracture, epilepsy, depression, TBI, hypothyroidism presenting to the emergency department with [facility] staff who left prior to my assessment. Patient is poor historian and unable to state why she is here in the emergency department. She states she was told her knee is fractured. She denies any current pain. MD complaint: Fracture Related Data Home Medications ?Medication ?Instructions ?Recorded ?Confirmed alendronate 70 mg tablet 70 mg PO MO 03/03/25 03/03/25 calcium 500 mg tablet 500 mg PO DAILY 03/03/25 03/03/25 cetirizine 10 mg tablet 10 mg PO DAILY 03/03/25 03/03/25 cetirizine 10 mg tablet (Zyrtec) 10 mg PO DAILY 03/03/25 03/03/25 cholecalciferol (vitamin D3) 50 50 mcg PO DAILY 03/03/25 03/03/25 mcg (2,000 unit) tablet fluoxetine 10 mg tablet 10 mg PO DAILY 03/03/25 03/03/25 fluoxetine 20 mg tablet 20 mg PO DAILY 03/03/25 03/03/25 ibuprofen 400 mg tablet 400 mg PO BID 03/03/25 03/03/25 levetiracetam 750 mg tablet 750 mg PO BID 03/03/25 03/03/25 (Keppra) levothyroxine 100 mcg tablet 100 mcg PO SUTUWEFRSA 03/03/25 03/03/25 (Synthroid) levothyroxine 50 mcg tablet 50 mcg PO MOTH 03/03/25 03/03/25 (Synthroid) loperamide 2 mg capsule (Imodium 2 mg PO Q OTHER DAY 03/03/25 03/03/25 A-D) mirtazapine 7.5 mg tablet 7.5 mg PO BEDTIME 03/03/25 03/03/25 multivitamin 1 tab PO DAILY 03/03/25 03/03/25 omeprazole 40 mg capsule,delayed 40 mg PO BEDTIME 03/03/25 03/03/25 release oxybutynin chloride 10 mg 10 mg PO DAILY 03/03/25 03/03/25 tablet,extended release 24 hr Previous Rx's ?Medication ?Instructions ?Recorded cefuroxime axetil 250 mg tablet 250 mg PO BID 7 days #13 tabs 03/05/25 Allergies Allergy/AdvReac Type Severity Reaction Status Date / Time apple Allergy Unknown Verified 03/18/25 12:39 lactose Allergy Gastrointestinal Verified 03/18/25 12:39 Upset levofloxacin (From Levaquin) Allergy Unknown Verified 03/18/25 12:39 peanut Allergy Unknown Verified 03/18/25 12:39 Penicillins Allergy Unknown Verified 03/18/25 12:39 pork derived (porcine) Allergy Unknown Verified 03/18/25 12:39 Review of Systems Review of Systems: As per HPI Yes all other systems are reviewed and are negative Constitutional: Constitutional: Reports as per HPI PMFSH Past Medical History Medical History CVA (cerebral vascular accident) Social History Social History Advance Directives: No Advance Directives Information Provided: Yes Physical Exam ED Vital Signs: Vital Signs - 24 hr 03/18/25 12:32 Temperature 98.8 F Pulse Rate 105 H Respiratory Rate 18 Blood Pressure 103/41 L Pulse Oximetry 94 Oxygen Delivery Method Room Air BMI result Body Mass Index 29.3 Vital signs have been reviewed and appear to be correct. Blood pressure normal. Heart rate mildly tachycardic. Respiratory rate normal. Temperature normal. Oxygen saturation normal. Const General: cooperative, no acute distress, alert and awake Orientation/consciousness: patient oriented x3 Limitations: physical limitations, wheelchair and other limitations (hx of TBI, stroke) HENMT Head: Yes normocephalic and Yes atraumatic Ears: external ears normal General nose exam: Normal external nose present Face and sinus: Yes face symmetric Mouth: oropharynx normal and moist mucous membranes Throat: Yes uvula midline Eyes Pupils: Equal, round and reactive pupils present Neck Neck: Yes normal visual inspection and Yes supple Resp Effort & Inspection: normal respiratory effort and able to speak in complete sentences Auscultation: clear to auscultation bilaterally Cardio Rate: regular rate Rhythm: regular rhythm Heart sounds: S1 normal heart sound present and S2 normal heart sound present GI Palpation (GI): Soft to palpation and nontender Auscultation: normoactive bowel sounds General: Yes no CVA tenderness Back/Spine/Pelvis Back: no CVA tenderness Skin General skin exam: elasticity normal and turgor normal Neuro Other: left sided hemiplegia and hemiparesis at baseline General: patient oriented x3 Cranial nerves: Yes Equal, round and reactive pupils present Extrem General: Yes full ROM, Yes no pedal edema and Yes no calf tenderness Left lower extremity: hip/thigh Details: swelling (distal upper leg) and foot Details: normal capillary refill, toes with normal ROM and vascular exam Details: dorsalis pedis pulse present, posterior tibial pulse present and normal capillary refill Psych Mental Status: mental status grossly normal Affect: normal affect Thought process: Normal thought process present Procedures Orthopedic Splinting/Casting Injury #1: Side: left Lower Extremity Injury Location: upper leg Lower Extremity Immobilizer: posterior splint Additional Comments: long leg posterior splint Medical Decision Making Medical Decision Making [facility] Narrative: Patient is a 60-year-old female with history of CVA with subsequent hemiplegia and hemiparesis, distal right femur fracture, epilepsy, depression, TBI, hypothyroidism presenting to the emergency department with [facility] staff who left prior to my assessment. On exam patient is awake, A+Ox3, VS WNL, afebrile, normal neurological exam without focal deficits, physical exam findings as above. Given reported symptoms and physical exam findings, initial differential includes but is not limited to unstable femur fracture. Reached out to ortho as patient seen by ortho today and had new left femur fracture x-rays. Dr. Buitrago evaluated patient in the ED, initially recommending knee immobilizer. Further into ED stay, jerica Thomas PA advised that Dr. Buitrago now recommending long leg posterior splint. I did mention that this may increase patient's risk for skin breakdown, however, ortho feels this is best for stabilizing patient's fracture. Splint applied as per procedure note, patient tolerated well. Per Dr. Buitrago she can return to short-term rehab and follow up outpatient. Differential Diagnosis Differential Diagnoses: The differential diagnosis associated with the presentation includes As per [facility] Admission/Observation Consideration of admission/observation: Escalation of care including admission/observation considered Patient would have been admitted to the hospital had their clinical presentation warranted hospital admission. Consult Healthcare Provider Management of the patient was discussed with: Business Services Coordinator (Martha Steward from ortho) Independent Interpretation I performed an independent interpretation of an: Plain X-Ray Interpretation: outpatient x-ray of left femur consistent with unstable fracture Radiology Impression Discussion of test interpretation with radiology: I have reviewed the radiologist's reading. Radiologist Impression: XR/XR femur LT 2V IMPRESSION: Two slightly oblique lateral images of the femur were submitted. The order in which the images was taken is not documented. On one image, there is 55 degrees posterior angulation of the femur distal to the fracture with 3 cm overlap. On the second image, there is improved alignment consistent with an unstable fracture. External Record Review External record reviewed: Inpatient record, Office record and Outpatient record Discharge Plan Discharge Clinical Impression: Fracture of left femur Qualifiers: Encounter type: subsequent encounter Femur location: distal, unspecified portion Fracture type: closed Fracture morphology: unspecified fracture morphology Fracture healing: with delayed healing Qualified Code(s): S72.402G - Unspecified fracture of lower end of left femur, subsequent encounter for closed fracture with delayed healing Patient Disposition: Xfer SNF Transfer Details: return to [facility] Instructions: Leg Fracture (ED), Splint Care (ED) Additional Instructions: You were seen by Orthopedics in the emergency department today for a left femur fracture. A new splint was applied to stabilize your femur. You can follow-up with orthopedics outpatient. It is important to keep the splint dry. If you develop new numbness or tingling, change of color in your toes please return to the emergency department immediately. Prescriptions: No Action loperamide [Imodium A-D] 2 mg Capsule 2 mg PO Q OTHER DAY alendronate 70 mg Tablet 70 mg PO MO fluoxetine 10 mg Tablet 10 mg PO DAILY fluoxetine 20 mg Tablet 20 mg PO DAILY ibuprofen [Motrin] 400 mg Tablet 400 mg PO BID levetiracetam [Keppra] 750 mg Tablet 750 mg PO BID mirtazapine 7.5 mg Tablet 7.5 mg PO BEDTIME cetirizine [Zyrtec] 10 mg Tablet 10 mg PO DAILY oxybutynin chloride 10 mg Tablet Extended Release 24hr 10 mg PO DAILY Oyster Calcium 500 mg Tablet 500 mg PO DAILY omeprazole [Prilosec] 40 mg Capsule,Delayed Release(Dr/Ec) 40 mg PO BEDTIME levothyroxine [Synthroid] 100 mcg Tablet 100 mcg PO SUTUWEFRSA Patient Comments: unclear as to the dates the pt takes this dose levothyroxine [Synthroid] 50 mcg Tablet 50 mcg PO MOTH multivitamin Tablet 1 tab PO DAILY cetirizine 10 mg Tablet 10 mg PO DAILY cholecalciferol (vitamin D3) 50 mcg (2,000 unit) Tablet 50 mcg PO DAILY cefuroxime axetil 250 mg tablet 250 mg PO BID 7 Days Qty: 13 0RF Referrals: [facility] [place] [facility] [Provider Group] Referral Note: ongoing follow up Clinical Impression: Fracture of left femur Print Language: French
--- NOTE | 2025-03-18 12:45 | PC.NURSE ---
Pt to ED 21- A/O x 3, and wheelchair bound. Reports hx of TBI and currently being treated in [facility] for ? knee injury, usually resided in [facility]. States being sent to ED today from ortho office needing xrays of left femur. Pt is poor historian. Cast noted to LLE.
--- NOTE | 2025-03-18 15:27 | MHC.EDTECH ---
pt urinated in brief, suzi care was done, pt changed into hospital gown, warm blankets given, call pickens within reach
[2025-03-18 17:20] VITALS: BP 132/74; PULSE 95; RESP 18; TEMP 37.2; O2SAT 93
--- NOTE | 2025-03-18 17:34 | PC.NURSE ---
report given to [facility] Danilo, plans for pt to d/c back via transportation
[2025-03-18 17:49] VITALS: BP 132/74; PULSE 95; RESP 18; TEMP 37.2; O2SAT 93
== END 2025-03-18 18:54 | disposition skilled nursing facility (03) ==
PROVIDERS: Emergency Provider Emergency Medicine; PCP Nurse Practitioner Family
DX: S72.402A Unspecified fracture of lower end of left femur, initial encounter for closed fracture (principal); M79.605 Pain in left leg; X58.XXXA Exposure to other specified factors, initial encounter; Y93.9 Activity, unspecified; Y92.9 Unspecified place or not applicable; Y99.8 Other external cause status
CPT/HCPCS: 99283; 99284

== ENCOUNTER 2025-03-25 09:36 | Outpatient (REF) | payer MEDICARE, MEDICAID, SELFPAY ==
--- NOTE | ~2025-03-25 | XR_ITS ---
EXAMINATION: XR FEMUR 2 VIEWS LEFT HISTORY: M79.606 - Pain in leg, unspecified COMPARISON: Comparison is made with the prior examination dated 03/18/1995. FINDINGS: AP and lateral views of the left femur are submitted. Osseous mineralization is normal. Again seen is a comminuted fracture of the distal femoral metaphysis with marked angulation the fracture fragments. The appearance is not significantly changed from the prior study. The patient is status post left total hip arthroplasty. The soft tissues are unremarkable. XR/XR femur LT 2V IMPRESSION: Comminuted markedly angulated fracture of the distal femur without significant change. Electronically signed by: Grady Sarah MD 03/25/2025 12:42 PM EDT
--- OUTSIDE RECORDS SUMMARY | 2025-03-26 10:08 | XMS_ITS | Encounter Summary ---
Author Organization [facility] Address [address] [place] [address] Phone Care Team Providers Care Parachute Crown Sewer Name Role Phone Saeed Alvarez MD Unavailable [phone] Saeed Alvarez MD Primary Care Provider [phone] Suzanne De LeonP Primary Care Provider [phone] Spencer Chamorro MD Unavailable Suzanne De LeonP Unavailable [phone] Encounter Details Date Type Department Care Team (Late st Contact Info) Description 03/28/2021 Procedure Pass [place] Admitting Dept - Virtual Department 30 [place] [address] Social History Tobacco Use Types Packs/Day Years [...] 7:46 PM EDT Jillian Johnson RN * [place] Suicide Severity Rating Scale (Screener/Recent Self-Report) Question Answer Date of Assessment Author 1. Wish to be (Past 1 Month) No 021 7:46 PM EDT Jillian Johnson RN 2. Non-Specific Active Suici phuc Thoughts (Past 1 Month) No 03/28/2021 7:46 PM EDT aHfsa Johnson RN 6. Suicidal Behavior (Lifetime) No 7:46 PM EDT Jillian Johnson RN documented as of this encounter Plan of Treatment Upcoming Encounters Date Type Department Care Team (Late st Contact Info) Description 11/19/2024 Procedure Pass [address] [address] 06/16/2025 10:30 AM EST Appointment [address] [address] Suzanne De Leon, [address] 7 [place] [address] [email or web address] 08/03/2025 11:15 AM EST Appointment [address] [address] Suzanne De Leon, [address] 7 [place] [address] [email or web address] documented as of this encounter Visit Diagnoses Not on filedocumented in this encounter Additional Health Concerns Assessment Noted Time PHQ-2 Depression Total Score: 1 06/20/20 20 11:09 AM EST documented as of this encounter Care Teams Parachute Crown Sewer Relationship Specialty Start Date End Date Saeed Alvarez MD [address] [place] [address] [address] [place] [address] [email or web address] PCP - General 05/02/17 07/19/21 Suzanne De Leon FNP [address] [place] [address], [address] [place] [address] [email or web address] PCP - General Family Medicine 07/20/21 Saeed Alvarez MD [address] [place] [address] [address] [place] [address] [email or web address] Insurance Assigned Provider 09/10/15 Spencer Chamorro MD [address] [place] [address], [address] [place] [address] [email or web address] Insurance Assigned Provider 10/13/22 Suzanne De Leon FNP [address] [place] [address], [address] [place] [address] [email or web address] Insurance Assigned Provider 10/11/24 documented as of this encounter Additional Source Comments The information contained in this document represents components of the legal health record. It is not the complete legal health record.[facility]
--- OUTSIDE RECORDS SUMMARY | 2025-03-26 10:08 | XMS_ITS | Encounter Summary ---
Author Organization [facility] Address [address] [facility] [address] [place] [address] Phone Care Team Providers Care Health Workers Name Role Phone Saeed Alvarez MD Unavailable Suzanne De LeonP Primary Care Provider [phone] Spencer Chamorro MD Unavailable Suzanne De Leon Unavailable Encounter Details Date Type Department Care Team (Latest Contact Info) Description 09/06/2022 Transcribe Orders Virtual Department 30 [place] [address] Suzanne De Leon FNP [address] [place] [address] 7 [place] [address] [email or web address] Breast screening (Primary Dx) Social History Tobacco [...] st Contact Info) Description 11/19/2024 Procedure Pass [address] [address] 06/16/2025 10:30 AM EST Appointment [address] [address] Suzanne De Leon FNP 234 [facility], [facility] 7 [place] [address] 08/03/2025 11:15 AM EST Appointment [facility] Bone Density [address] [address] Suzanne De Leon FNP [address] [place] [address] 7 [place] [address] Scheduled Orders Name Type Priority Associated Diagnoses Orde r Schedule Mammogram Screening (Bilateral) Imaging Routine Breast screening Expected: 09/06/2022, Expires: 03/09/2025 documented as of this encounter Visit Diagnoses Diagnosis Breast screening- Primary Breast screening, unspecified documented in this encounter Additional Health Concerns Assessment Noted Time PHQ-2 Depression Total Score: 1 06/20/20 20 11:09 AM EST documented as of this encounter Care Teams Health Workers Relationship Specialty Start Date End Date Suzanne De Leon FNP [address] [place] [address] 7 [place] [address] PCP - General Family Medicine 07/20/21 Saeed Alvarez MD [address] [place] [address] [address] [place] [address] [email or web address] Insurance Assigned Provider 09/10/15 Spencer Chamorro MD 234 [facility], [address] [place] [address] [email or web address] Insurance Assigned Provider 10/13/22 Suzanne De Leon FNP 234 [facility], [address] [place] [address] [email or web address] Insurance Assigned Provider 10/11/24 documented as of this encounter Additional Source Comments The information contained in this document represents components of the legal health record. It is not the complete legal health record.[facility]
--- OUTSIDE RECORDS SUMMARY | 2025-03-26 10:08 | XMS_ITS | Encounter Summary ---
Author Organization [facility] Address [address] [place] [address] Phone Care Team Providers Care Real Estate Rep Name Role Phone Saeed Alvarez MD Unavailable Saeed Alvarez MD Primary Care Provider [phone] Suzanne De LeonP Primary Care Provider [phone] Spencer Chamorro MD Unavailable Suzanne De LeonP Unavailable Encounter Details Date Type Department Care Team (Late st Contact Info) Description 08/05/2019 Ancillary Orders Virtual Department 30 [place] [address] Saeed Alvarez MD [address] [place] [address] [address] [place] [id number] [email or web address] Breast screening Social History Tobacco Use Types [...] st Contact Info) Description 11/19/2024 Procedure Pass [facility], [address] [address] 06/16/2025 10:30 AM EST Appointment [address] [address] Suzanne De Leon FNP [address] [facility], [facility] 7 [place] [address] [email or web address] 08/03/2025 11:15 AM EST Appointment [facility] Bone Density [address] [address] Suzanne De Leon FNP [address] [facility], [facility] 7 [place] [address] [email or web address] documented as of [...] documented as of this encounter Care Teams Real Estate Rep Relationship Specialty Start Date End Date Saeed Alvarez MD [address] [place] [address] [address] [place] [address] [email or web address] PCP - General 05/02/17 07/19/21 Suzanne De Leon FNP [address] [place] [address] [place] [address] [email or web address] PCP - General Family Medicine 07/20/21 Saeed Alvarez MD [address] [place] [address] [address] [place] [address] [email or web address] Insurance Assigned Provider 09/10/15 Spencer Chamorro MD [address] [place] [address], [address] [place] [address] [email or web address] Insurance Assigned Provider 10/13/22 Suzanne De Leon FNP [address] [place] [address], [address] [place] [address] [email or web address] Insurance Assigned Provider 10/11/24 documented as of this encounter Additional Source Comments The information contained in this document represents components of the legal health record. It is not the complete legal health record.[facility]
--- OUTSIDE RECORDS SUMMARY | 2025-03-26 10:08 | XMS_ITS | Encounter Summary ---
Author Organization [facility] Address [address] [place] [address] Phone Care Team Providers Care Telecommunications Repairer Name Role Phone Haley Suzanne Vann [facility] Primary Care Provider Spencer Chamorro MD Unavailable Suzanne De Leon [facility] Unavailable [phone] Encounter Details Date Type Department Care Team (Late st Contact Info) Description 12/19/2022 Procedure Pass [facility], [facility] Scan - [address] [address] Social History Tobacco Use Types Packs/Day Years [...] Contact Info) Description 11/19/2024 Procedure Pass [address] [address] 06/16/2025 10:30 AM EST Appointment [address] [address] Suzanne De Leon FNP [address] [place] [address] 08/03/2025 11:15 AM EST Appointment [facility] Bone Density [address] [address] Suzanne De Leon FNP [address] [place] [address] documented as of this encounter Visit Diagnoses Not on filedocumented in this encounter Additional Health Concerns Assessment Noted Time PHQ-2 Depression Total Score: 1 06/20/20 20 11:09 AM EST documented as of this encounter Care Teams Telecommunications Repairer Relationship Specialty Start Date End Date Suzanne De Leon FNP [address] [place] [address] [place] [address] PCP - General Family Medicine 07/20/21 Spencer Chamorro MD [address] [place] [address] Insurance Assigned Provider 10/13/22 Suzanne De Leon FNP [address] [place] [address], [address] [place] [address] [email or web address] Insurance Assigned Provider 10/11/24 documented as of this encounter Additional Source Comments The information contained in this document represents components of the legal health record. It is not the complete legal health record.[facility]
--- OUTSIDE RECORDS SUMMARY | 2025-03-26 10:08 | XMS_ITS | Encounter Summary ---
Author Organization [facility] Address [address] [place] [address] Phone Care Team Providers Care Claims Supervisor Name Role Phone Suzanne De Leon [facility] Primary Care Provider Suzanne De Leon [facility] Unavailable [phone] Encounter Details Date Type Department Care Team (Late st Contact Info) Description 10/08/2023 Procedure Pass [facility], [address] [address] Social History Tobacco Use Types Packs/Day Years [...] st Contact Info) Description 11/19/2024 Procedure Pass [address] [address] 06/16/2025 10:30 AM EST Appointment [address] [address] Suzanne De Leon FNP [address] [place] [address] [email or web address] 08/03/2025 11:15 AM EST Appointment [address] [address] Suzanne De Leon FNP [address] [place] [address] documented as of this encounter Visit Diagnoses Not on filedocumented in this encounter Additional Health Concerns Assessment Noted Time PHQ-2 Depression Total Score: 0 10/08/19 24 11:24 AM EDT documented as of this encounter Care Teams Claims Supervisor Relationship Specialty Start Date End Date Suzanne De Leon FNP [address] [place] [address] [email or web address] PCP - General Family Medicine 07/20/21 Suzanne De Leon FNP [address] [place] [address] 7 [place] [address] [email or web address] Insurance Assigned Provider 10/11/24 documented as of this encounter Additional Source Comments The information contained in this document represents components of the legal health record. It is not the complete legal health record.[facility]
--- OUTSIDE RECORDS SUMMARY | 2025-03-26 10:08 | XMS_ITS | Encounter Summary ---
Author Organization [facility] Address [address] [place] [address] Phone Care Team Providers Care Transformer Maker Name Role Phone Saeed Alvarez MD Unavailable [phone] Saeed Alvarez MD Primary Care Provider [phone] Suzanne De Leon [facility] Primary Care Provider Spencer Chamorro MD Unavailable Suzanne De Leon [facility] Unavailable Encounter Details Date Type Department Care Team (Late st Contact Info) Description 08/05/2019 Ancillary Orders [facility] Medicine 234 [place] [address] Saeed Alvarez MD 234 [facility]. [address] [place] [id number] [email or web address] Social History Tobacco Use Types Packs/Day [...] st Contact Info) Description 11/19/2024 Procedure Pass [address] [address] 06/16/2025 10:30 AM EST Appointment [address] [address] Suzanne De Leon FNP 234 [facility], [facility] 7 [place] [address] [email or web address] 08/03/2025 11:15 AM EST Appointment [facility] Bone Density [address] [address] Suzanne De Leon FNP 234 [facility], [facility] 7 [place] [address] [email or web address] documented as of this encounter Visit Diagnoses Not on filedocumented in this encounter Additional Health Concerns Infection Onset Date Last Indicated Resolved Time CoV-Exposed Comment:Recent close contact 05/13/2020 05/13/2020 05/27/2020 1:25 AM EST CoV-Exposed Comment:Recent close contact documented in the COVID-19 PCR/PRO order 02/01/2021 02/02/2021 02/26/2021 1:23 AM E DT documented as of this encounter Care Teams Transformer Maker Relationship Specialty Start Date End Date Saeed Alvarez MD [address] [place] [address]. [address] [place], [place] [address] [email or web address] PCP - General 05/02/17 07/19/21 Suzanne De Leon FNP [address] [place] [address] 7 [place] [address] [email or web address] PCP - General Family Medicine 07/20/21 Saeed Alvarez MD [address] [place] [address] [address] [place] [address] [email or web address] Insurance Assigned Provider 09/10/15 Spencer Chamorro MD [address] [place] [address], [address] [place], [place] [address] [email or web address] Insurance Assigned Provider 10/13/22 Suzanne De Leon FNP [address] [place] [address], [address] [place] [address] [email or web address] Insurance Assigned Provider 10/11/24 documented as of this encounter Additional Source Comments The information contained in this document represents components of the legal health record. It is not the complete legal health record.[facility]
--- OUTSIDE RECORDS SUMMARY | 2025-03-26 10:08 | XMS_ITS | Encounter Summary ---
Author Organization [facility] Address [address] [place] [address] Phone Care Team Providers Care Flight Service Specialist Name Role Phone Saeed Alvarez MD Unavailable [phone] Saeed Alvarez MD Primary Care Provider [phone] Suzanne De Leon [facility] Primary Care Provider Spencer Chamorro MD Unavailable Suzanne De LeonP Unavailable [phone] Reason for Referral * MRI/CAT Scan - Closed Specialty Diagnoses / Procedures Referred By Brent to Referred To Contact Radiology Diagnoses Memory loss Procedures MRI Brain Timmy Gomez MD Phone: tel: fax: [email or web address] Referral ID Status Reason Start Date Expiration Date Visits Re quested Visits Authorized [id number] Closed 02/24/2021 02/24/2022 1 1 Encounter Details Date Type Department Care Team (Latest Contact Info) Description 02/24/2021 Transcribe Orders Virtual Department [address] [place] [address] Timmy Gomez MD [address] [place] [address], [address] [place] [address] [email or web address] Memory loss (Primary Dx) Social History [...] st Contact Info) Description 11/19/2024 Procedure Pass [address] [address] 06/16/2025 10:30 AM EST Appointment [address] [address] Suzanne De Leon, [address] [address] [email or web address] 08/03/2025 11:15 AM EST Appointment [facility] Bone [address] [address] Suzanne De Leon, [address] [address] [email or web address] documented as of this encounter Results * [...] documented as of this encounter Care Teams Flight Service Specialist Relationship Specialty Start Date End Date Saeed Alvarez MD [address] [place] [address] [address] [place] [phone] [email or web address] PCP - General 05/02/17 07/19/21 Suzanne De Leon FNP [address] [place] [address] 7 [place] [address] [email or web address] PCP - General Family Medicine 07/20/21 Saeed Alvarez MD [address] [place] [address] [address] [place] [phone] [email or web address] Insurance Assigned Provider 09/10/15 Spencer Chamorro MD [address] [place] [address] 7 [place] [address] [email or web address] Insurance Assigned Provider 10/13/22 Suzanne De Leon FNP [address] [place] [address] 7 [place] [address] [email or web address] Insurance Assigned Provider 10/11/24 documented as of this encounter Additional Source Comments The information contained in this document represents components of the legal health record. It is not the complete legal health record.[facility]
--- OUTSIDE RECORDS SUMMARY | 2025-03-26 10:08 | XMS_ITS | Encounter Summary ---
Author Organization [facility] Address [address] [place] [address] Phone Care Team Providers Care Environmental Lead Name Role Phone Saeed Alvarez MD Unavailable Saeed Alvarez MD Primary Care Provider [phone] Suzanne De LeonP Primary Care Provider [phone] Spencer Chamorro MD Unavailable Suzanne De LeonP Unavailable Encounter Details Date Type Department Care Team (Late st Contact Info) Description 02/24/2021 Procedure Pass [facility], [address] [address] Social History Tobacco Use Types Packs/Day Years [...] Upcoming Encounters Date Type Department Care Team ([facility] st Contact Info) Description 11/19/2024 Procedure Pass [address] [address] 06/16/2025 10:30 AM EST Appointment [address] [address] Suzanne De Leon FNP [address] [place] [address] 7 [place] [address] [email or web address] 08/03/2025 11:15 AM EST Appointment [facility] Density [address] [address] Suzanne De Leon [address] 7 [place] [address] documented as of this encounter Visit Diagnoses Not on filedocumented in this encounter Additional Health Concerns Infection Onset Date Last Indicated Resolved Time CoV-Exposed Comment:Recent close contact documented in the COVID-19 PCR/PRO order 02/01/2021 02/02/2021 02/26/2021 1:23 AM E DT Assessment Noted Time PHQ-2 Depression Total Score: 1 06/20/20 20 11:09 AM EST documented as of this encounter Care Teams Environmental Lead Relationship Specialty Start Date End Date Saeed Alvarez MD [address] [place], [place] [address] [place] [address] [email or web address] PCP - General 05/02/17 07/19/21 Suzanne De Leon FNP [address] [place] [address] 7 [place] [address] PCP - General Family Medicine 07/20/21 Saeed Alvarez MD [address] [place] [address] [address] [place] [phone] [email or web address] Insurance Assigned Provider 09/10/15 Spencer Chamorro MD [address] [place] [address], [address] [place] [address] [email or web address] Insurance Assigned Provider 10/13/22 Suzanne De Leon FNP [address] [place] [address], [address] [place] [address] [email or web address] Insurance Assigned Provider 10/11/24 documented as of this encounter Additional Source Comments The information contained in this document represents components of the legal health record. It is not the complete legal health record.[facility]
--- OUTSIDE RECORDS SUMMARY | 2025-03-26 10:08 | XMS_ITS | Encounter Summary ---
Author Organization [facility] Address [address] [place] [address] Phone Care Team Providers Care Screening Specialist Name Role Phone Saeed Alvarez MD Unavailable Suzanne De Leon [facility] Primary Care Provider Spencer Chamorro MD Unavailable Suzanne De Leon [facility] Unavailable [phone] Reason for Visit * Reason Onset Date Comments orders 03/15/2022 HCP orders Encounter Details Date Type Department Care Team ([facility] st Contact Info) Description 03/15/2022 Telephone [facility] [address] [place] [address] Richard Ward, [facility] [address] [place] [address] orders (HCP orders) Social History Tobacco Use [...] Any questions she can be reached at [phone] or [phone] documented in this encounter Plan of Treatment Upcoming Encounters Date Type Department Care Team (Late st Contact Info) Description 11/19/2024 Procedure Pass [address] [address] 06/16/2025 10:30 AM EST Appointment [address] [address] Suzanne De Leon FNP [address] [place] [address], [address] [place] [address] 08/03/2025 11:15 AM EST Appointment [facility] [address] [place] [address] Suzanne De LeonDINAH [address] [facility], [address] [place] [address] [email or web address] documented as of this encounter Visit Diagnoses Diagnosis Incontinence of feces with fecal urgency- Primary documented in this encounter Additional Health Concerns Assessment Noted Time PHQ-2 Depression Total Score: 1 06/20/20 20 11:09 AM EST documented as of this encounter Care Teams Screening Specialist Relationship Specialty Start Date End Date Suzanne De LeonDINAH [address] [place] [address], [facility] 7 [place] [address] [email or web address] PCP - General Family Medicine 07/20/21 Saeed Alvarez MD [address] [place] [address] [address] [place] [phone] [email or web address] Insurance Assigned Provider 09/10/15 Spencer Chamorro MD [address] [place] [address], [address] [place] [id number] Insurance Assigned Provider 10/13/22 Suzanne De Leon DINAH Vann [address] [place] [address] [address] [place] [address] [email or web address] Insurance Assigned Provider 10/11/24 documented as of this encounter Additional Source Comments The information contained in this document represents components of the legal health record. It is not the complete legal health record.[facility]
--- OUTSIDE RECORDS SUMMARY | 2025-03-26 10:08 | XMS_ITS | Encounter Summary ---
Author Organization [facility] Address [address] [place] [address] Phone Care Team Providers Care Dairy Farm Worker Name Role Phone Saeed Alvarez MD Unavailable Saeed Alvarez MD Primary Care Provider [phone] Suzanne De Leon [facility] Primary Care Provider Spencer Chamorro MD Unavailable Suzanne De Leon [facility] Unavailable Encounter Details Date Type Department Care Team (Late st Contact Info) Description 08/11/2018 Ancillary Orders [facility] Medicine [address] [place] [address] Saeed Alvarez MD [address] [facility]. [address] [place] [id number] [email or web address] Breast screening Social History Tobacco Use [...] st Contact Info) Description 11/19/2024 Procedure Pass [address] [address] 06/16/2025 10:30 AM EST Appointment [address] [address] [place]aley Suzanne Vann, [facility] [address] [facility], [address] [place] [address] 08/03/2025 11:15 AM EST Appointment [facility], Bone Density [address] [address] Suzanne De Leon Soo, [facility] [address] [facility], [address] [place] [address] documented as of this encounter Results * [...] which lowers the sensitivity of mammography. POS -[id number] Narrative 10/22/2018 8:07 AM EDT Bilateral full-field [...] appearance whichlowers the sensitivity of mammography. POS -[id number] Saeed Alvarez MD IMG MG EXAMS Final [...] documented as of this encounter Care Teams Dairy Farm Worker Relationship Specialty Start Date End Date Saeed Alvarez MD [address] [place], [place] [address] [place] [phone] [email or web address] PCP - General 05/02/17 07/19/21 Suzanne De Leon FNP [address] [place] [address], [address] [place] [address] [email or web address] PCP - General Family Medicine 07/20/21 Saeed Alvarez MD [address] [place] [address] [address] [place] [phone] [email or web address] Insurance Assigned Provider 09/10/15 Spencer Chamorro MD [address] [place] [address], [address] [place], [place] [address] [email or web address] Insurance Assigned Provider 10/13/22 Suzanne De Leon FNP [address] [place] [address], [address] [place] [address] [email or web address] Insurance Assigned Provider 10/11/24 documented as of this encounter Additional Source Comments The information contained in this document represents components of the legal health record. It is not the complete legal health record.[facility]
--- OUTSIDE RECORDS SUMMARY | 2025-03-26 10:09 | XMS_ITS | Encounter Summary ---
Author Organization [facility] Address [address] [place] [address] Phone Care Team Providers Care Optical Fabrication Technician Name Role Phone Saeed Alvarez MD Unavailable Saeed Alvarez MD Primary Care Provider [phone] Suzanne De Leon [facility] Primary Care Provider [phone] Spencer Chamorro MD Unavailable Suzanne De Leon [facility] Unavailable [phone] Encounter Details Date Type Department Care Team (Late st Contact Info) Description 06/02/2021 Procedure Pass [facility], [facility] [address] [place] [address] Social History Tobacco Use Types Packs/Day Years [...] st Contact Info) Description 11/19/2024 Procedure Pass [address] [address] 06/16/2025 10:30 AM EST Appointment [address] [address] Suzanne De Leon [facility] 234 [facility] 7 [place] [address] [email or web address] 08/03/2025 11:15 AM EST Appointment [facility] Bone Density [address] [address] Suzanne De Leon FNP [address] [address] [email or web address] documented as of this encounter Visit Diagnoses Not on filedocumented in this encounter Additional Health Concerns Assessment Noted Time PHQ-2 Depression Total Score: 1 06/20/20 20 11:09 AM EST documented as of this encounter Care Teams Optical Fabrication Technician Relationship Specialty Start Date End Date Saeed Alvarez MD [address] [place] [address] [address] [place] [phone] [email or web address] PCP - General 05/02/17 07/19/21 Suzanne De Leon FNP [address] [place] [address] [place] [address] [email or web address] PCP - General Family Medicine 07/20/21 Saeed Alvarez MD [address] [place] [address] [address] [place] [phone] [email or web address] Insurance Assigned Provider 09/10/15 Spencer Chamorro MD [address] [place] [address] 7 [place] [address] [email or web address] Insurance Assigned Provider 10/13/22 Suzanne De Leon FNP [address] [place] [address] 7 [place] [address] [email or web address] Insurance Assigned Provider 10/11/24 documented as of this encounter Additional Source Comments The information contained in this document represents components of the legal health record. It is not the complete legal health record.[facility]
--- OUTSIDE RECORDS SUMMARY | 2025-03-26 10:09 | XMS_ITS | Encounter Summary ---
Author Organization [facility] Address [address] [place] [address] Phone Care Team Providers Care Porter Baggage Name Role Phone Saeed Alvarez MD Unavailable Saeed Alvarez MD Primary Care Provider [phone] Suzanne De Leon [facility] Primary Care Provider Spencer Chamorro MD Unavailable Suzanne De Leon [facility] Unavailable [phone] Encounter Details Date Type Department Care Team (Late st Contact Info) Description 07/31/2017 Ancillary Orders [facility] Medicine 234 [place] [address] Saeed Alvarez MD 234 [facility]. [address] [place] [address] [email or web address] Breast screening Social History Tobacco Use [...] Contact Info) Description 11/19/2024 Procedure Pass [address] [address] 06/16/2025 10:30 AM EST Appointment [address] [address] [place] Suzanne Vann, [facility] [address] [facility], [address] [place] [address] 08/03/2025 11:15 AM EST Appointment [facility], Bone Density [address] [address] Suzanne De Leon Soo, [address], [facility] 7 [place] [address] documented as of this encounter Results * [...] lowers the sensitivity of mammography. POS - [id number] Narrative 10/15/2017 11:05 AM EDT Full-field digital [...] whichlowers the sensitivity of mammography. POS - [id number] Saeed Alvarez MD IMG MG EXAMS Final [...] documented as of this encounter Care Teams Porter Baggage Relationship Specialty Start Date End Date Saeed Alvarez MD [address] [place] [address] [address] [place] [phone] [email or web address] PCP - General 05/02/17 07/19/21 Suzanne De Leon FNP [address] [place] [address], [address] [place] [address] [email or web address] PCP - General Family Medicine 07/20/21 Saeed Alvarez MD [address] [place] [address] [address] [place] [phone] [email or web address] Insurance Assigned Provider 09/10/15 Spencer Chamorro MD [address] [place] [address], [address] [place] [address] [email or web address] Insurance Assigned Provider 10/13/22 Suzanne De Leon FNP [address] [place] [address], [address] [place] [address] [email or web address] Insurance Assigned Provider 10/11/24 documented as of this encounter Additional Source Comments The information contained in this document represents components of the legal health record. It is not the complete legal health record.[facility]
--- OUTSIDE RECORDS SUMMARY | 2025-03-26 10:09 | XMS_ITS | Encounter Summary ---
Author Organization [facility] Address [address] [place] [address] Phone Care Team Providers Care Automatic Coil Machine Operator Name Role Phone Suzanne De Leon [facility] Primary Care Provider [phone] Suzanne De Leon GROC[employer] BUYER Unavailable [phone] Encounter Details Date Type Department Care Team (Late st Contact Info) Description 12/08/2024 Procedure Pass [facility]oscopy Admitting Dept Virtual Department [address] [place] [address] Social History Tobacco Use Types Packs/Day Years [...] st Contact Info) Description 11/19/2024 Procedure Pass [address] [address] 06/16/2025 10:30 AM EST Appointment [address] [address] Suzanne De Leon FNP [address] [place] [address] 08/03/2025 11:15 AM EST Appointment [facility] Density [address] [address] Suzanne De Leon FNP [address] [address] [email or web address] documented as of this encounter Visit Diagnoses Not on filedocumented in this encounter Additional Health Concerns Assessment Noted Time PHQ-2 Depression Total Score: 0 11/18/19 25 11:54 AM EDT documented as of this encounter Care Teams Automatic Coil Machine Operator Relationship Specialty Start Date End Date Suzanne De Leon FNP [address] [place] [address] [email or web address] PCP - General Family Medicine 07/20/21 Suzanne De Leon FNP [address] [place] [address] 7 [place] [address] [email or web address] Insurance Assigned Provider 10/11/24 documented as of this encounter Additional Source Comments The information contained in this document represents components of the legal health record. It is not the complete legal health record.[facility]
--- OUTSIDE RECORDS SUMMARY | 2025-03-26 10:09 | XMS_ITS | Encounter Summary ---
Author Organization [facility] Address [address] [place] [address] Phone Care Team Providers Care Reject Opener Name Role Phone Suzanne De Leon [facility] Primary Care Provider [phone] Suzanne De Leon CARRIAGE DOGGER Unavailable [phone] Encounter Details Date Type Department Care Team (Late st Contact Info) Description 01/21/2024 Procedure Pass [facility] Admitting Dept Virtual Department [address] [place] [address] Social History Tobacco Use Types Packs/Day Years [...] st Contact Info) Description 11/19/2024 Procedure Pass [address] [address] 06/16/2025 10:30 AM EST Appointment [address] [address] Suzanne De Leon FNP [address] [place] [address] [email or web address] 08/03/2025 11:15 AM EST Appointment [facility] Bone Density [address] [address] Suzanne De Leon FNP [address] [address] [email or web address] documented as of this encounter Visit Diagnoses Not on filedocumented in this encounter Additional Health Concerns Assessment Noted Time PHQ-2 Depression Total Score: 0 10/08/19 24 11:24 AM EDT documented as of this encounter Care Teams Reject Opener Relationship Specialty Start Date End Date Suzanne De Leon FNP [address] [place] [address] [email or web address] PCP - General Family Medicine 07/20/21 Suzanne De Leon FNP [address] [place] [address] 7 [place] [address] [email or web address] Insurance Assigned Provider 10/11/24 documented as of this encounter Additional Source Comments The information contained in this document represents components of the legal health record. It is not the complete legal health record.[facility]
--- OUTSIDE RECORDS SUMMARY | 2025-03-26 10:09 | XMS_ITS | Clinical Summary ---
Author Organization [facility] Address [address] [place] [address] Phone Care Team Providers Care Systems Manager Name Role Phone Suzanne De Leon [facility] Primary Care Provider [phone] [facility] Unavailable [phone] Allergies Active Allergy Reactions Criticality Noted Date [...] disabled since that time, living in a intermediate with hemiplegia on the left. At baseline [...] AM EDT): Slip and fall at her intermediate 03/28 with x-ray evidence of a acute, [...] - Patient should follow-up in orthopedic clinic ([phone]) in approximately 2 weeks time with repeat [...] of scheduling. Pt participated in visit from intermediate. Saji has left ankle and foot swelling [...] may be evaluated in the office. The intermediate member understands and agrees with this plan. [...] Type Department Care Team Description 03/16[facility] [address] [place] [address] Radha Hernández Medication Refill 03/02/2025 9:45 AM EDT Office Visit [facility] [address] [place] [address] Alison Evans MD Pepyne, Rachael Mervine, PT Chronic right shoulder pain (Primary Dx); Right hand pain 03/01/[address] [address] Suzanne De Leon, PLANT FLOOR AUTOMATION MANAGER Medication Refill ( levothyroxine (SYNTHROID, LEVOTHROID) 100 MCG tablet /) 02/24/[address] [address] Anitra Arechiga, FAVIOLA Medication Refill 2025 10:30 AM EDT Office Visit [facility] [address] [place] [address] Alison Evans MD Pepyne, Rachael Mervine, PT Chronic right shoulder pain (Primary Dx); Right hand pain 02/10/2025 12:54 PM EDT - 02/10/2025 1:00 PM EDT [facility] [address] [place] [address] Discharge Disposition: Left Without Being Seen 02/02/2025 10:15 AM EDT Office Visit [facility] [address] [place] [address] Alison Evans MD Pepyne, Rachael Mervine, PT Chronic right shoulder pain (Primary Dx); Right hand pain 01/28/[address] [address] Jillian Arevalo [place] Medication Refill 01/26/2025 10:15 AM EDT Office Visit [facility] [address] [place] [address] Alison Evans MD Pepyne, Rachael Mervine, PT Chronic right shoulder pain (Primary Dx); Right hand pain 01/19/2025 10:15 AM EDT Office Visit [facility] [address] [place] [address] Alison Evans MD Pepyne, Rachael Mervine, PT Chronic right shoulder pain (Primary Dx); Right hand pain 01/12/2025 3:15 PM EDT Office Visit [facility] [address] [place] [address] Alison Evans MD Swannie, Ward, HANDICRAFT OR HOBBY SHOP MANAGER Chronic right shoulder pain (Primary Dx) 01/05/2025 10:30 AM EDT Office Visit [facility] [address] [place] [address] Alison Evans MD Pepyne, Rachael Mervine, PT Chronic right shoulder pain (Primary Dx); Right hand pain 01/05/2025 Plan of Care Documentation [facility] [address] [place] [address] 12/30/2024 Refill [facility] [address] [address] Jillian Arevalo [place] Medication Refill from Last [...] Contact Info) Description 11/19/2024 Procedure Pass [address] [address] 06/16/2025 10:30 AM EST Appointment [address] [address] Suzanne De Leon, [facility] [address] [facility], [facility] 7 [place] [address] [email or web address] 08/03/2025 11:15 AM EST Appointment [facility], Bone Density [address] [address] Suzanne De Leon, [facility] [address] [facility], [address] [place] [address] [email or web address] Health Maintenance Due Date Last Done Comments [...] this topic Medical Devices Implanted Type Area Ingredient Scaler Helper Device Identifier Shelf Expiration Date Model / Serial / Lot Cement Bone 40gm Quapaw Gentamicin High Viscosity Softpac - [id number] Implanted:Qty: 2 on 03/28/2021 by Edouard Luna MD at [facility] Left: Acetabulum ENCORE 02/04/2023 [id number] / / [id number] Hip Stem 7.0mm Femoral Echo Fx Quapaw Chromium - [id number] Implanted:Qty: 1 on 03/28/2021 by Edouard Luna MD at [facility] Left: Femur [employer] 12/14/2029 [id number] / / [id number] Acetabular Shell 41mm Endo Ii Titanium Alloy Unipolar - [id number] Implanted:Qty: 1 on 03/28/2021 by Edouard Luna MD at [facility] Left: Acetabulum [employer] 03/08/2023 [id number] / / [id number] Hip Centralizer 10mm Implant Cemented Versys 16b Bx/1ea - [id number] Implanted:Qty: 1 on 03/28/2021 by Edouard Luna MD at [facility] Left: Acetabulum SHAWN / DIV OF [employer]ST[employer] 08/08/2030 [id number] / / [id number] Hip Insert 3.0mm Femoral Bio Cuevas Ii Endo Titanium Alloy Taper Plus - [id number] Implanted:Qty: 1 on 03/28/2021 by Edouard Luna MD at [facility] Left: Acetabulum [employer] 01/26/2031 [id number] / / [id number] Procedures Procedure Name Priority Date/Time Associated Diagnosis Comments AMB REFERRAL TO [facility] PHYSICAL THERAPY Routine 01/05/2025 6:16 PM [...] Health Maintenance Results * Ambulatory referral to [facility] Physical Therapy (01/05/2025 6:16 PM EDT) Other us Alison Evans MD AMB [facility] REFERRALS Final R esult * ENDOSCOPY, COLON (12/08/2024 11:20 AM EDT) Narrative Transcriptions Jeanine Santizo MD - 12/08/2024 11:20 AM EDT [facility] Patient Name: Saji Chavezdonna Attending MD:: JEANINE SANTIZO MD, Procedure Date: 12/08/2024 11:20 AM Date of : 1965 Age: 59 Admit Type: Outpatient Gender: Female Room: [place] [address] Referring MD: Suzanne De Leon Exam Type: [...] 11:20 AM Procedure Code(s): --- Professional --- 12362, Colonoscopy, flexible; with removal of tumor(s), polyp(s), or other lesion(s) by snare technique --- Technical --- 14691, Colonoscopy, flexible; with removal of tumor(s), polyp(s), or other lesion(s) by snare technique CPT copyright 2021 [employer]. All rights reserved. The codes documented in this report are preliminary and upon booth cashier reviewmay be revised to meet current compliance requirements. Procedure Date: 12/08/2024 11:20:[address] [place] [address] Suzanne De Leon PLANT FLOOR AUTOMATION MANAGER GI PROCEDURE ORDERABLES Final Result * BI [...] be notified of the results and recommendations. [facility] Soo Clayton PLANT FLOOR AUTOMATION MANAGER IMG MG EXAMS Final Result * (ABNORMAL) Lipid panel (12/03/2023 10:10 AM EDT) HDL 44 mg/dL [facility] Comment: Interpretation <40 mg/dL: Low HDL cholesterol (major risk factor for CHD) Greater than or equal to 60 mg/dL: High HDL cholesterol ( negative risk factor for CHD) HDL - cholesterol is affected by a number of factors, e.g. smoking, excerise, hormones, sex and age. CHOLESTEROL 278(H) 0 - 240 mg/dL [facility] TRIGLYCERIDES 222(H) 30 - 160 mg/dL [facility] LDL 190(H) 50 - 129 mg/dL [facility] Comment: LDL levels in terms of risk for coronary heart disease: <100 mg/dL: Optimal 100-129 mg/dL: Near or above optimal 130-159 mg/dL: Borderline high 160-189 mg/dL: High >190 mg/dL: Very High CARDIAC RISK RATIO 6.3(H) 3.3 - 4.4 C [facility] Blood 12/03/2023 10:1 0 AM EDT 12/03/2023 10:20 AM EDT us [facility] LAB BLOOD ORDERABLES Final Re sult Performing Organization Address [facility]/ZIP Co de Phone Number [address] [address] * TSH with reflex (11/26/2023 11:36 AM EDT) TSH 0.85 0.27 - 4.20 uIU/mL [facility] Blood 11/26/2023 11:3 6 AM EDT 11/26/2023 11:38 AM EDT us [facility] LAB BLOOD ORDERABLES Final Re sult Performing Organization Address City/[facility]/ZIP Co de Phone Number [address] [address] * Pap Test (10/08/2023 12:00 AM EDT) 10/08/2023 10/09/2023 9:3 6 AM EDT Narrative SEE NARRATIVE - 10/15/2023 11:11 AM EDT [address] [address] Booth Cashier: Shonda Cruz MD FLOOR COVERER APPRENTICE Cytology Report FINAL DIAGNOSIS A. PAP SMEAR [...] 59, 66, 68) Note: Testing performed by [employer] HR-HPV analysis. Clinical correlation is advised. This HPV test was performed at [facility], [address] [place] [address]. This test has been FDA approved for both SurePath and ThinPrep cervical cytology specimens. The accuracy and precision of this test for all other specimen sources has been verified in the Cytopathology Laboratory of the [facility] and has not been cleared or approved by the U.S. Food and Drug Administration. Clinical correlation is advised. CLINICAL HISTORY Date of Last Menstrual Period: Not Provided Menstrual History: Post Menopausal Other Clinical Conditions: Screening Pap SPECIMEN SOURCE A: PAP SMEAR (SUREPATH) CE Patient Name: SAJI JULIAN : 1965 (Age: 58) Sex: F Institution: [facility] Location: [facility] Date of Collection: 10/08/2023 Date of Reported: 10/15/2023 11:11 Results to: Suzanne De Leon MSN us Suzanne De Leon PLANT FLOOR AUTOMATION MANAGER CYTOLOGY ORDERABLES Final Res ult SEE NARRATIVE [...] bone mineral density was calculated at 0.636 gm/jo1iieh a T- score of -1.9 falling within [...] bone density since 2008. us Brigida Elmore SPLITTER OPERATOR IMG BD BONE DENSITY DEXA F inal Result * Hepatitis C antibody, qualitative (11/11/2018 11:21 AM EDT) HCV Negative Negative [facility] Comment: This is a screening test and should be confirmed with molecular testing Blood 11/11/2018 11:2 1 AM EDT 11/11/2018 11:25 AM EDT us Saeed Alvarez MD LAB BLOOD ORDERABLES Donna browning Result [facility] [address] [place], [place] [id number] from Last 3 Months or Most Recently Relevant to Health Maintenance Insurance MEDICARE PART A & [place] [id number] [facility] MEDICARE PART A & B [address] [place] [address]HEALTH MEDICARE PART A & B [facility] & [place] [address] [place] [address] MEDICARE PART A & B Member Subscriber Plan / Payer (Ef fective 1984-) Name:Saji Julian Member ID:[id number] Relation to Subscriber:Self Name:Saji Julian Subscriber ID:[id number] Payer ID:[id number] Group ID:Not on file Type:Medicare Address: [place] [address] [place] [id number] [facility] PART A & B [facility] & B [facility] PART A & B [facility] MEDICARE PART A & B [facility] Advance Directives For more information, please contact: [phone] (9AM - 5PM Sh[facility], Saturday-Saturday) Documents on File Type Date Recorded Patient Materials Director Expl anation Healthcare Proxy 04/04/2021 9:10 AM Durable Power of Oil Distributor Tender 04/04/2021 9:10 AM * Full Code (Latest Code Status on File) Date Activated Date Inactivated Comments 03/28/2021 7:34 PM Question Answer Comments Code Status Confirmed With: Patient * Full Code Date Activated Date Inactivated Comments 03/28/2021 7:30 PM 03/28/2021 7:34 PM Question Answer Comments Code Status Confirmed With: PatientSurrogate Code Discussion Comments: intermediate staff Healthcare Agents on File Name Relationship Healthcare Agent [facility] Communication Afua Alvarenga Sister .Primary Health Care Agent (Proxy form on file) Care Teams Systems Manager Relationship Specialty Start Date End Date Suzanne De LeonDINAH [address] [facility] 7 [place] [address] PCP - General Family Medicine 07/20/21 Suzanne De Leon FNP [address] [facility] [address] [place] [address] [email or web address] Insurance Assigned Provider 10/11/24 Additional Source Comments The information contained in this document represents components of the legal health record. It is not the complete legal health record.[facility]
== END 2025-03-25 09:37 | disposition home or self-care (01) ==
LOC: HO.HOSX 09:36
PROVIDERS: Visit Provider Physician Assistant
DX: S72.402A Unspecified fracture of lower end of left femur, initial encounter for closed fracture (principal); G81.94 Hemiplegia, unspecified affecting left nondominant side; W06.XXXA Fall from bed, initial encounter
CPT/HCPCS: 27500; 73552; 99202

== ENCOUNTER 2025-03-25 11:06 | Outpatient (AMB) | payer MEDICARE, MEDICAID, SELFPAY ==
[2025-03-25 11:08] VITALS: BMI 29.3
--- NOTE | 2025-03-25 11:08 | MHC.OFFVIS ---
Vital Signs 03/25/25 11:08 Height 5 ft Weight 150 lb BMI 29.3 Intake Visit Reasons: ED F/U - Left Femur Fracture 03/03/25 Intake Note: Radha is a 60 year old woman who presents today for an emergency department follow up for her left knee and leg pain status post self transferring herself from her bed to her wheelchair on 03/03/25. At [facility] [place] ED she denied any trauma or injury to the left knee. Per [facility] [place] ED note from 03/03/25 she has a distal femur fracture and was placed in long leg posterior splint. Allergies apple Allergy (Verified 03/25/25 11:37) Unknown lactose Allergy (Verified 03/25/25 11:37) Gastrointestinal Upset levofloxacin (From Levaquin) Allergy (Verified 03/25/25 11:37) Unknown peanut Allergy (Verified 03/25/25 11:37) Unknown Penicillins Allergy (Verified 03/25/25 11:37) Unknown pork derived (porcine) Allergy (Verified 03/25/25 11:37) Unknown HPI HPI ED F/U - Left Femur Fracture 03/03/25: Details: 60-year-old female presents to the office today for an injury she sustained to her left femur on 03/03/2025 after falling out of bed trying to transfer to a wheelchair. She comes in today [place] [facility]. She is in a posterior splint however her leg is flexed approximately 90 degrees. Patient has left hemiparesis as a result of a TBI approximately 50 years ago.. [facility] Medical History CVA (cerebral vascular accident) Social History (Updated 03/25/25 @ 11:38 by Yuni Luque [facility]) Current occupational status: disabled Review of Systems Const All systems reviewed & are unremarkable except as noted in HPI and below Physical Exam Vital Signs: BMI result Body Mass Index 29.3 Const General: cooperative and no acute distress Orientation/consciousness: patient oriented x3 Resp Effort & Inspection: normal respiratory effort and able to speak in complete sentences Cardio Peripheral pulses: Peripheral pulses 2+ throughout Neuro General: patient oriented x3 Extrem Other: Left lower extremity skin is intact. She does have a pressure sore on the left heel. This is not open or oozing. She contracts her leg into a flexed position at the knee and hip. She is insensate to touch. Pulses present. Office Procedures AMB Fracture Care Fracture Billing Code: Fracture Billing Code Casting/Splints 47342-[id number] Leg splint application Procedure code (CPT) selection complete Results Reviewed Results Reviewed: XR femur LT 2V IMPRESSION: Comminuted markedly angulated fracture of the distal femur without significant change. Assessment & Plan Assessment & Plan (1) Fracture of femur: Code(s): S72.90XA - Unspecified fracture of unspecified femur, initial encounter for closed fracture Category: Medical Plan: Dr. Buitrago was available to see the patient with me today. Given the extent of her left-sided hemiparesis and bone quality there is no recommendation to pursue surgical intervention given the risks. The risks include but are not limited to skin breakdown, re fracture and infection. We will continue to treat her with immobilization. I was able to hold the leg in extension while a long leg splint was applied along with cast material over the knee to help with extension. Patient will remain nonweightbearing. We will see her back in 1 week with repeat x-rays through the splint. Orders: Orders XR femur LT 2V Today M79.606 - Pain in leg, unspecified Coding Level of Care Code New Pt Level 3 (35870) Complex EM visit Add On G2211 Diagnoses Fracture of femur S72.90XA CPT Codes Fracture Care - Fracture Billing Code: Fracture Billing Code ([id number]) Splint - CPT: 64365-[id number] Leg splint application ([id number])
--- OUTSIDE RECORDS SUMMARY | 2025-03-25 13:22 | XMS_ITS | Encounter Summary ---
Author Organization [facility] Address [address] [place] [address] Phone Care Team Providers Care Boiler Assistant Operator Name Role Phone Saeed Alvarez MD Unavailable Suzanne De Leon [facility] Primary Care Provider Spencer Chamorro MD Unavailable Suzanne De Leon [facility] Unavailable Reason for Visit * Reason Onset Date Comments orders 03/15/2022 HCP orders Encounter Details Date Type Department Care Team ([facility] st Contact Info) Description 03/15/2022 Telephone [facility] [address] [place] [address] Richard Ward, [facility] [address] [place] [address] orders (HCP orders) Social History Tobacco Use [...] Any questions she can be reached at [phone] or [phone] documented in this encounter Plan of Treatment Upcoming Encounters Date Type Department Care Team (Late st Contact Info) Description 11/19/2024 Procedure Pass [address] [address] 06/16/2025 10:30 AM EST Appointment [address] [address] Suzanne De Leon FNP [address] [place] [address], [address] [place] [address] 08/03/2025 11:15 AM EST Appointment [facility] [address] [place] [address] Suzanne De LeonDINAH [address] [facility], [address] [place] [address] [email or web address] documented as of this encounter Visit Diagnoses Diagnosis Incontinence of feces with fecal urgency- Primary documented in this encounter Additional Health Concerns Assessment Noted Time PHQ-2 Depression Total Score: 1 06/20/20 20 11:09 AM EST documented as of this encounter Care Teams Boiler Assistant Operator Relationship Specialty Start Date End Date Suzanne De LeonDINAH [address] [place] [address], [facility] [address] [place] [id number] [email or web address] PCP - General Family Medicine 07/20/21 Saeed Alvarez MD [address] [place] [address] [address] [place] [phone] [email or web address] Insurance Assigned Provider 09/10/15 Spencer Chamorro MD [address] [place] [address], [address] [place] [id number] Insurance Assigned Provider 10/13/22 Suzanne De Leon DINAH Vann [address] [place] [address] [address] [place] [address] [email or web address] Insurance Assigned Provider 10/11/24 documented as of this encounter Additional Source Comments The information contained in this document represents components of the legal health record. It is not the complete legal health record.[facility]
--- OUTSIDE RECORDS SUMMARY | 2025-03-25 13:23 | XMS_ITS | Encounter Summary ---
Author Organization [facility] Address [address] [place] [address] Phone Care Team Providers Care Forming Roll Operator Name Role Phone Saeed Alvarez MD Unavailable Saeed Alvarez MD Primary Care Provider [phone] Suzanne De Leon [facility] Primary Care Provider Spencer Chamorro MD Unavailable Suzanne De Leon [facility] Unavailable Encounter Details Date Type Department Care Team (Late st Contact Info) Description 08/11/2018 Ancillary Orders [facility] Medicine [address] [place] [address] Saeed Alvarez MD [address] [facility]. [address] [place] [id number] [email or web address] Breast screening Social History Tobacco Use Types [...] st Contact Info) Description 11/19/2024 Procedure Pass [address] [address] 06/16/2025 10:30 AM EST Appointment [address] [address] [place] Suzanne Vann, [facility] [address] [facility], [address] [place] [address] 08/03/2025 11:15 AM EST Appointment [facility], Bone Density [address] [address] Suzanne De Leon Soo, [facility] [address] [facility], [address] [place] [address] [email or web address] documented as of this encounter Results * [...] which lowers the sensitivity of mammography. POS -[id number] Narrative 10/22/2018 8:07 AM EDT Bilateral full-field [...] appearance whichlowers the sensitivity of mammography. POS -[id number] Saeed Alvarez MD IMG MG EXAMS Final [...] documented as of this encounter Care Teams Forming Roll Operator Relationship Specialty Start Date End Date Saeed Alvarez MD [address] [place], [place] [address] [place] [id number] [email or web address] PCP - General 05/02/17 07/19/21 Suzanne De Leon FNP [address] [place] [address], [address] [place] [address] [email or web address] PCP - General Family Medicine 07/20/21 Saeed Alvarez MD [address] [place] [address] [address] [place] [phone] [email or web address] Insurance Assigned Provider 09/10/15 Spencer Chamorro MD [address] [place] [address], [address] [place], [place] [address] [email or web address] Insurance Assigned Provider 10/13/22 Suzanne De Leon FNP [address] [place] [address], [address] [place] [address] [email or web address] Insurance Assigned Provider 10/11/24 documented as of this encounter Additional Source Comments The information contained in this document represents components of the legal health record. It is not the complete legal health record.[facility]
--- OUTSIDE RECORDS SUMMARY | 2025-03-25 13:23 | XMS_ITS | Encounter Summary ---
Author Organization [facility] Address [address] [facility] [address] [place] [address] Phone Care Team Providers Care Casting Operator Helper Name Role Phone Saeed Alvarez MD Unavailable Suzanne De LeonP Primary Care Provider Spencer Chamorro MD Unavailable Suzanne De Leon Unavailable [phone] Encounter Details Date Type Department Care Team (Latest Contact Info) Description 09/06/2022 Transcribe Orders Virtual Department [address] [place] [address] Suzanne De Leon FNP [address] [place] [address] [address] [place] [address] [email or web address] Breast screening (Primary Dx) Social History Tobacco [...] st Contact Info) Description 11/19/2024 Procedure Pass [address] [address] 06/16/2025 10:30 AM EST Appointment [address] [address] Suzanne De Leon FNP [address] [facility] [address] [place] [address] 08/03/2025 11:15 AM EST Appointment [facility] Density [address] [address] Suzanne De Leon FNP [address] [place] [address] [place] [id number] Scheduled Orders Name Type Priority Associated Diagnoses Orde r Schedule Mammogram Screening (Bilateral) Imaging Routine Breast screening Expected: 09/06/2022, Expires: 03/09/2025 documented as of this encounter Visit Diagnoses Diagnosis Breast screening- Primary Breast screening, unspecified documented in this encounter Additional Health Concerns Assessment Noted Time PHQ-2 Depression Total Score: 1 06/20/20 20 11:09 AM EST documented as of this encounter Care Teams Casting Operator Helper Relationship Specialty Start Date End Date Suzanne De Leon FNP [address] [place] [address] [place] [address] PCP - General Family Medicine 07/20/21 Saeed Alvarez MD [address] [place] [address] [address] [place] [phone] [email or web address] Insurance Assigned Provider 09/10/15 Spencer Chamorro MD [address] [facility], [address] [place] [address] [email or web address] Insurance Assigned Provider 10/13/22 Suzanne De Leon FNP [address] [facility], [address] [place] [address] [email or web address] Insurance Assigned Provider 10/11/24 documented as of this encounter Additional Source Comments The information contained in this document represents components of the legal health record. It is not the complete legal health record.[facility]
--- OUTSIDE RECORDS SUMMARY | 2025-03-25 13:23 | XMS_ITS | Encounter Summary ---
Author Organization [facility] Address [address] [place] [address] Phone Care Team Providers Care Hotel Room Attendant Name Role Phone Haley Suzanne Vann [facility] Primary Care Provider [phone] Spencer Chamorro MD Unavailable Suzanne De Leon [facility] Unavailable [phone] Encounter Details Date Type Department Care Team (Late st Contact Info) Description 12/19/2022 Procedure Pass [facility], Ct Scan - [address] [address] Social History Tobacco Use Types Packs/Day Years [...] st Contact Info) Description 11/19/2024 Procedure Pass [address] [address] 06/16/2025 10:30 AM EST Appointment [address] [address] Suzanne De Leon FNP [address] [place] [address] 08/03/2025 11:15 AM EST Appointment [facility] Bone Density [address] [address] Suzanne De Leon FNP [address] [place] [address] documented as of this encounter Visit Diagnoses Not on filedocumented in this encounter Additional Health Concerns Assessment Noted Time PHQ-2 Depression Total Score: 1 06/20/20 20 11:09 AM EST documented as of this encounter Care Teams Hotel Room Attendant Relationship Specialty Start Date End Date Suzanne De Leon FNP [address] [place] [address] [place] [address] PCP - General Family Medicine 07/20/21 Spencer Chmaorro MD [address] [place] [address] Insurance Assigned Provider 10/13/22 Suzanne De Leon FNP [address] [place] [address], [address] [place] [address] [email or web address] Insurance Assigned Provider 10/11/24 documented as of this encounter Additional Source Comments The information contained in this document represents components of the legal health record. It is not the complete legal health record.[facility]
--- OUTSIDE RECORDS SUMMARY | 2025-03-25 13:24 | XMS_ITS | Encounter Summary ---
Author Organization [facility] Address [address] [place] [address] Phone Care Team Providers Care Sr. Pricing Analyst Name Role Phone Saeed Alvarez MD Unavailable Saeed Alvarez MD Primary Care Provider [phone] Suzanne De LeonP Primary Care Provider Spencer Chamorro MD Unavailable uSzanne De LeonP Unavailable [phone] Encounter Details Date Type Department Care Team (Late st Contact Info) Description 02/24/2021 Procedure Pass [facility], [address] [address] Social History Tobacco Use Types Packs/Day Years [...] Upcoming Encounters Date Type Department Care Team ([facility] st Contact Info) Description 11/19/2024 Procedure Pass [address] [address] 06/16/2025 10:30 AM EST Appointment [address] [address] Suzanne De Leon FNP [address] [place] [address] 7 [place] [address] [email or web address] 08/03/2025 11:15 AM EST Appointment [facility] Bone Density [address] [address] Suzanne De Leon [address] 7 [place] [address] [email or web address] documented as of this encounter Visit Diagnoses Not on filedocumented in this encounter Additional Health Concerns Infection Onset Date Last Indicated Resolved Time CoV-Exposed Comment:Recent close contact documented in the COVID-19 PCR/PRO order 02/01/2021 02/02/2021 02/26/2021 1:23 AM E DT Assessment Noted Time PHQ-2 Depression Total Score: 1 06/20/20 20 11:09 AM EST documented as of this encounter Care Teams Sr. Pricing Analyst Relationship Specialty Start Date End Date Saeed Alvarez MD [address] [place], [place] [address] [place] [address] [email or web address] PCP - General 05/02/17 07/19/21 Suzanne De Leon FNP [address] [place] [address] 7 [place] [address] [email or web address] PCP - General Family Medicine 07/20/21 Saeed Alvarez MD [address] [place] [address] [address] [place] [address] [email or web address] Insurance Assigned Provider 09/10/15 Spencer Chamorro MD [address] [place] [address], [address] [place] [address] [email or web address] Insurance Assigned Provider 10/13/22 Suzanne De Leon FNP [address] [place] [address], [address] [place] [address] [email or web address] Insurance Assigned Provider 10/11/24 documented as of this encounter Additional Source Comments The information contained in this document represents components of the legal health record. It is not the complete legal health record.[facility]
--- OUTSIDE RECORDS SUMMARY | 2025-03-25 13:24 | XMS_ITS | Encounter Summary ---
Author Organization [facility] Address [address] [place] [address] Phone Care Team Providers Care Casing Grader Name Role Phone Saeed Alvarez MD Unavailable Saeed Alvarez MD Primary Care Provider [phone] Suzanne De Loen [facility] Primary Care Provider Spencer Chamorro MD Unavailable Suzanne De LeonP Unavailable Reason for Referral * MRI/CAT Scan - Closed Specialty Diagnoses / Procedures Referred By Brent to Referred To Contact Radiology Diagnoses Memory loss Procedures MRI Brain Timmy Gomez MD Phone: tel: fax: [email or web address] Referral ID Status Reason Start Date Expiration Date Visits Re quested Visits Authorized [id number] Closed 02/24/2021 02/24/2022 1 1 Encounter Details Date Type Department Care Team (Latest Contact Info) Description 02/24/2021 Transcribe Orders Virtual Department 30 [place] [address] Timmy Gomez MD [address] [place] [address], [address] [place] [address] [email or web address] Memory loss (Primary Dx) Social History [...] st Contact Info) Description 11/19/2024 Procedure Pass [address] [address] 06/16/2025 10:30 AM EST Appointment [address] [address] Suzanne De Leon, [address] [address] [email or web address] 08/03/2025 11:15 AM EST Appointment [facility] Bone [address] [address] Suzanne De Leon, [address] [address] [email or web address] documented as of this encounter Results * [...] documented as of this encounter Care Teams Casing Grader Relationship Specialty Start Date End Date Saeed Alvarez MD [address] [place] [address] [address] [place] [phone] [email or web address] PCP - General 05/02/17 07/19/21 Suzanne De Leon FNP [address] [place] [address] 7 [place] [address] [email or web address] PCP - General Family Medicine 07/20/21 Saeed Alvarez MD [address] [place] [address] [address] [place] [phone] [email or web address] Insurance Assigned Provider 09/10/15 Spencer Chamorro MD [address] [place] [address] 7 [place] [address] [email or web address] Insurance Assigned Provider 10/13/22 Suzanne De Leon FNP [address] [place] [address] 7 [place] [address] [email or web address] Insurance Assigned Provider 10/11/24 documented as of this encounter Additional Source Comments The information contained in this document represents components of the legal health record. It is not the complete legal health record.[facility]
--- OUTSIDE RECORDS SUMMARY | 2025-03-25 13:24 | XMS_ITS | Encounter Summary ---
Author Organization [facility] Address [address] [place] [address] Phone Care Team Providers Care Ironer Hand Name Role Phone Saeed Alvarez MD Unavailable Seaed Alvarez MD Primary Care Provider [phone] Suzanne De Leon [facility] Primary Care Provider [phone] Spencer Chamorro MD Unavailable Suzanne De Leon [facility] Unavailable [phone] Encounter Details Date Type Department Care Team (Late st Contact Info) Description 08/05/2019 Ancillary Orders [facility] Medicine [address] [place] [address] Saeed Alvarez MD [address] [facility]. [address] [place] [id number] [email or web address] Social History Tobacco Use Types Packs/Day Years [...] st Contact Info) Description 11/19/2024 Procedure Pass [address] [address] 06/16/2025 10:30 AM EST Appointment [address] [address] Suzanne De Leon FNP [address] [facility], [facility] 7 [place] [address] [email or web address] 08/03/2025 11:15 AM EST Appointment [facility] Bone Density [address] [address] Suzanne De Leon FNP [address] [facility], [facility] 7 [place] [address] [email or web address] documented as of this encounter Visit Diagnoses Not on filedocumented in this encounter Additional Health Concerns Infection Onset Date Last Indicated Resolved Time CoV-Exposed Comment:Recent close contact 05/13/2020 05/13/2020 05/27/2020 1:25 AM EST CoV-Exposed Comment:Recent close contact documented in the COVID-19 PCR/PRO order 02/01/2021 02/02/2021 02/26/2021 1:23 AM E DT documented as of this encounter Care Teams Ironer Hand Relationship Specialty Start Date End Date Saeed Alvarez MD [address] [place] [address]. [address] [place], [place] [address] [email or web address] PCP - General 05/02/17 07/19/21 Suzanne De Leon FNP [address] [place] [address] 7 [place] [address] [email or web address] PCP - General Family Medicine 07/20/21 Saeed Alvarez MD [address] [place] [address] [address] [place] [phone] [email or web address] Insurance Assigned Provider 09/10/15 Spencer Chamorro MD [address] [place] [address], [address] [place], [place] [address] [email or web address] Insurance Assigned Provider 10/13/22 Suzanne De Leon FNP [address] [place] [address], [address] [place] [address] [email or web address] Insurance Assigned Provider 10/11/24 documented as of this encounter Additional Source Comments The information contained in this document represents components of the legal health record. It is not the complete legal health record.[facility]
--- OUTSIDE RECORDS SUMMARY | 2025-03-25 13:24 | XMS_ITS | Encounter Summary ---
Author Organization [facility] Address [address] [place] [address] Phone Care Team Providers Care Medicare Specialist Name Role Phone Saeed Alvarez MD Unavailable Saeed Alvarez MD Primary Care Provider [phone] Suzanne De LeonP Primary Care Provider Spencer Chamorro MD Unavailable Suzanne De LeonP Unavailable [phone] Encounter Details Date Type Department Care Team (Late st Contact Info) Description 03/28/2021 Procedure Pass [place] Admitting Dept - Virtual Department [address] [place] [address] Social History Tobacco Use Types Packs/Day Years [...] 7:46 PM EDT Jillian Johnson RN * Adams Suicide Severity Rating Scale (Screener/Recent Self-Report) Question [...] st Contact Info) Description 11/19/2024 Procedure Pass [address] [address] 06/16/2025 10:30 AM EST Appointment [address] [address] Suzanne De Leon, [address] 7 [place] [address] 08/03/2025 11:15 AM EST Appointment [address] [address] Suzanne De Leon, [address] 7 [place] [address] documented as of this encounter Visit Diagnoses Not on filedocumented in this encounter Additional Health Concerns Assessment Noted Time PHQ-2 Depression Total Score: 1 06/20/20 20 11:09 AM EST documented as of this encounter Care Teams Medicare Specialist Relationship Specialty Start Date End Date Saeed Alvarez MD [address] [place] [address] [address] [place] [address] [email or web address] PCP - General 05/02/17 07/19/21 Suzanne De Leon FNP [address] [place] [address], [address] [place] [address] [email or web address] PCP - General Family Medicine 07/20/21 Saeed Alvarez MD [address] [place] [address] [address] [place] [phone] [email or web address] Insurance Assigned Provider 09/10/15 Spencer Chamorro MD [address] [place] [address], [address] [place] [address] [email or web address] Insurance Assigned Provider 10/13/22 Suzanne De Leon FNP [address] [place] [address], [address] [place] [address] [email or web address] Insurance Assigned Provider 10/11/24 documented as of this encounter Additional Source Comments The information contained in this document represents components of the legal health record. It is not the complete legal health record.[facility]
--- OUTSIDE RECORDS SUMMARY | 2025-03-25 13:24 | XMS_ITS | Encounter Summary ---
Author Organization [facility] Address [address] [place] [address] Phone Care Team Providers Care Tumor Registrar Name Role Phone Saeed Alvarez MD Unavailable Saeed Alvarez MD Primary Care Provider [phone] Suzanne De LeonP Primary Care Provider Spencer Chamorro MD Unavailable Suzanne De LeonP Unavailable [phone] Encounter Details Date Type Department Care Team (Late st Contact Info) Description 08/05/2019 Ancillary Orders Virtual Department [address] [place] [address] Saeed Alvarez MD [address] [place] [address] [address] [place] [id number] [email or web address] Social History Tobacco Use Types [...] Info) Description 11/19/2024 Procedure Pass [facility], [address] [address] 06/16/2025 10:30 AM EST Appointment [address] [address] Suzanne De Leon FNP [address] [facility], [facility] 7 [place] [address] [email or web address] 08/03/2025 11:15 AM EST Appointment [facility] Bone Density [address] [address] Suzanne De Leon FNP [address] [facility], [facility] 7 [place] [address] [email or web address] documented as of this [...] documented as of this encounter Care Teams Tumor Registrar Relationship Specialty Start Date End Date Saeed Alvarez MD [address] [place] [address] [address] [place] [phone] [email or web address] PCP - General 05/02/17 07/19/21 Suzanne De Leon FNP [address] [place] [address] [place] [address] [email or web address] PCP - General Family Medicine 07/20/21 Saeed Alvarez MD [address] [place] [address] [address] [place] [phone] [email or web address] Insurance Assigned Provider 09/10/15 Spencer Chamorro MD [address] [place] [address], [address] [place] [address] [email or web address] Insurance Assigned Provider 10/13/22 Suzanne De Leon FNP [address] [place] [address], [address] [place] [address] [email or web address] Insurance Assigned Provider 10/11/24 documented as of this encounter Additional Source Comments The information contained in this document represents components of the legal health record. It is not the complete legal health record.[facility]
--- OUTSIDE RECORDS SUMMARY | 2025-03-25 13:25 | XMS_ITS | Clinical Summary ---
Author Organization [facility] Address [address] [place] [address] Phone Care Team Providers Care Production Underwriter Name Role Phone Suzanne De Leon [facility] Primary Care Provider [phone] Suzanne De Leon [facility] Unavailable [phone] Allergies Active Allergy Reactions Criticality Noted Date Comments Bee Pollen 04/13/2021 Possible Bees & Wasps Clindamycin Hcl Erythema Multiforme 08/31/2019 Levofloxacin 12/16/2018 Penicillin 04/21/2021 Penicillins Hives 12/16/2018 Any derivatives of penicillin as well Medications INCONTINENCE ALARMS (MISC. DEVICES MISC) as directed 06/21/20 14 Active wheelchair Kaitlyn as directed 03/13/20 16 Active FLUoxetine (PROZAC) 40 MG capsule 30 mg daily. Active walker Misc -- 10/16/19 12 Active arm brace Misc - 01/30/20 12 Active disposable gloves Misc Use pull up as needed 120 each 11 01/22/20 18 Active benzocaine (ORAJEL) 10 % mucosal gel Use as directed in the mouth or throat 2 (two) times a day as needed for pain (specific location in comments). 5.3 g 1 08/16/19 22 Active miconazole 2 % powder Apply BID 70 g 1 02/09/20 22 Active acetaminophen (TYLENOL) 325 mg tabletIndications :Fever,Pain [...] total) by mouth every morning. 30 tablet 11 12/30/19 24 Active omeprazole (PRILOSEC) 40 MG capsuleIndication s:Gastroesophagea l reflux disease TAKE 1 CAPSULE BY MOUTH DAILY AT BEDTIME 28 capsule 11 06/01/20 24 Active multivitamin per tabletIndications :Medication refill Take 1 tablet by mouth every morning. 28 tablet 11 08/25/19 25 Active calcium carbonate-vitamin D3 (CALCIUM-VITAMIN [...] 3 01/29/20 25 Active levothyroxine (SYNTHROID, LEVOTHROID) 100 MCG tabletIndications :Hypothyroidism, unspecified type TAKE 1 TABLET BY MOUTH FIVE TIMES A WEEK ON SATURDAY, SATURDAY, SATURDAY, SATURDAY, AND SATURDAY . 28 tablet 3 03/01/20 25 Active levETIRAcetam (KEPPRA) 750 MG IMMEDIATE release tablet Take 1 tablet (750 mg total) by mouth nightly at bedtime. 90 tablet 3 03/16/20 25 Active ibuprofen (ADVIL,MOTRIN) 400 MG tabletIndications :Primary osteoarthritis involving multiple joints Take 1 tablet (400 mg total) by mouth 2 (two) times a day. 60 tablet 03/16/20 25 Active levothyroxine (SYNTHROID, LEVOTHROID) 50 MCG tabletIndications :Hypothyroid TAKE 1 TABLET BY MOUTH TWICE A WEEK ON MONDAYS AND THURSDAYS 8 tablet 03/16/20 25 Active alendronate (FOSAMAX) 70 MG tablet Take 1 tablet (70 mg total) by mouth every 7 days. Take on Saturday. Take in the morning with a full glass of water, on an empty stomach, and do not take anything else by mouth or lie down for the next 30 min. 12 tablet 3 03/16/20 25 Active mirtazapine (REMERON) 7.5 MG tablet Take 1 tablet (7.5 mg total) by mouth nightly at bedtime. 90 tablet 3 03/16/20 25 Active FLUoxetine (PROZAC) 10 MG capsule Take 1 capsule (10 mg total) by mouth daily. To be taken with a 20mg capsule for 30mg daily 90 capsule 3 03/16/20 25 Active FLUoxetine (PROZAC) 20 MG capsule Take 1 capsule (20 mg total) by mouth daily. To be taken with a 10mg capsule for a 30mg daily dose 90 capsule 3 03/16/20 25 Active fluoride, sodium, (PREVIDENT 5000 BOOSTER) 1.1 % Pste Use as directed in the mouth or throat nightly at bedtime. 1 g 1 03/16/20 25 Active guaiFENesin (ROBITUSSIN) 100 mg/5 mL syrupIndications: Cough Take 10 mL (200 mg total) by mouth daily as needed for cough. 120 mL 1 03/16/20 25 Active levETIRAcetam (KEPPRA) 750 MG tablet 1 tab every AM and 1 tab every evening 2024 Discontinued(R eorder) fluoride, sodium, (PREVIDENT 5000 BOOSTER) 1.1 % Pste Use as directed in the mouth or throat nightly at bedtime. 2024 Discontinued(R eorder) mirtazapine (REMERON) 7.5 MG tablet Take 7.5 mg by mouth nightly at bedtime. 2024 Discontinued(R eorder) guaiFENesin (ROBITUSSIN) 100 mg/5 mL syrupIndications: Cough Take 10 mL (200 mg total) by mouth daily as needed for cough. 120 mL 1 02/27/20 24 2024 Discontinued(R eorder) alendronate (FOSAMAX) 70 MG tablet Take 1 tablet (70 mg total) by mouth every 7 days. Take on Saturday. Take in the morning with a full glass of water, on an empty stomach, and do not take anything else by mouth or lie down for the next 30 min. 4 tablet 11 06/25/20 24 2024 Discontinued(R eorder) levothyroxine (SYNTHROID, LEVOTHROID) 100 MCG tabletIndications :Hypothyroidism, [...] 60 tablet 3 10/23/19 25 2024 Discontinued levothyroxine (SYNTHROID, LEVOTHROID) 50 MCG tabletIndications :Hypothyroid TAKE 1 TABLET BY MOUTH TWICE A WEEK ON MONDAYS AND THURSDAYS 8 tablet 02/26/20 25 2024 Discontinued(R eorder) ibuprofen (ADVIL,MOTRIN) 400 MG tabletIndications :Primary osteoarthritis involving multiple joints TAKE 1 TABLET BY MOUTH TWICE A DAY 60 tablet 02/26/20 25 2024 Discontinued(R eorder) Active Problems Problem Noted Date Diagnosed Date [...] disabled since that time, 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 At baseline [...] AM EDT): Slip and fall at her penitentiary 03/28 with x-ray evidence of a acute, [...] - Patient should follow-up in orthopedic clinic ([phone]) in approximately 2 weeks time with repeat [...] of scheduling. Pt participated in visit from penitentiary. Saji has left ankle and foot swelling [...] may be evaluated in the office. The penitentiary member understands and agrees with this plan. [...] Encounters Date Type Department Care Team Description 03/16[facility] [address] [place] [address] Radha Hernández Medication Refill 03/02/2025 9:45 AM EDT Office Visit [facility] [address] [place] [address] Alison Evans MD Pepyne, Rachael Mervine, PT Chronic right shoulder pain (Primary Dx); Right hand pain 03/01/[address] [address] Suzanne De Leon, DROP BOARD MAN Medication Refill ( levothyroxine (SYNTHROID, LEVOTHROID) 100 MCG tablet /) 02/24/[address] [address] Anitra Arechiga, FAVIOLA Medication Refill 2025 10:30 AM EDT Office Visit [facility] [address] [place] [address] Alison Evans MD Pepyne, Rachael Mervine, PT Chronic right shoulder pain (Primary Dx); Right hand pain 02/10/2025 12:54 PM EDT - 02/10/2025 1:00 PM EDT [facility] [address] [place] [address] Discharge Disposition: Left Without Being Seen 02/02/2025 10:15 AM EDT Office Visit [facility] [address] [place] [address] Alison Evans MD Pepyne, Rachael Mervine, PT Chronic right shoulder pain (Primary Dx); Right hand pain 01/28/[address] [address] Jillian Arevalo [place] Medication Refill 01/26/2025 10:15 AM EDT Office Visit [facility] [address] [place] [address] Alison Evans MD Pepyne, Rachael Mervine, PT Chronic right shoulder pain (Primary Dx); Right hand pain 01/19/2025 10:15 AM EDT Office Visit [facility] [address] [place] [address] Alison Evans MD Pepyne, Rachael Mervine, PT Chronic right shoulder pain (Primary Dx); Right hand pain 01/12/2025 3:15 PM EDT Office Visit [facility] [address] [place] [address] Alison Evans MD Swannie, Ward, ZINC ETCHER Chronic right shoulder pain (Primary Dx) 01/05/2025 10:30 AM EDT Office Visit [facility] [address] [place] [address] Alison Evans MD Pepyne, Rachael Mervine, PT Chronic right shoulder pain (Primary Dx); Right hand pain 01/05/2025 Plan of Care Documentation [facility] [address] [place] [address] 12/30/2024 Refill [facility] [address] [address] Jillian Arevalo [place] Medication Refill from Last 3 Months Immunizations Immunization Administration [...] st Contact Info) Description 11/19/2024 Procedure Pass [address] [address] 06/16/2025 10:30 AM EST Appointment [address] [address] Suzanne De Leon, [facility] 234 [facility], [facility] [address] [place] [address] [email or web address] 08/03/2025 11:15 AM EST Appointment [facility], [facility]ensity [address] [address] Suzanne De Leon, [facility] 234 [facility], [address] [place] [address] [email or web address] Health Maintenance Due Date Last Done Comments COLOGUARD 02/22/2009 FIT TEST 02/22/2009 FOBT 02/22/2009 SIGMOIDOSCOPY 02/22/2009 VIRTUAL COLONOSCOPY 02/22/2009 ZOSTER VACCINES (1 of 2) 02/22/2014 FOLLOW UP BONE DENSITY TESTING 08/15/2023 08/15/2021 TSH LEVEL 11/25/2024 11/26/2023, 10/07, 08/23/2021, Additional history exists MAMMOGRAM 12/23/2024 12/24/2023, 02/0 02/2022, 10/21/2018, Additional history exists INFLUENZA VACCINE (#1) 2025 , 03/30/2021, 04/26/2020, Additional history exists COVID-19 VACCINE ( season) 2025 12/13/2021, 06/19/2021, 08/11/2020, Additional history exists DEPRESSION SCREENING 11/17/2025 11/17/2024 [...] this topic Medical Devices Implanted Type Area Websphere Developer Device Identifier Shelf Expiration Date Model / Serial / Lot Cement Bone 40gm [place] Gentamicin High Viscosity Softpac - [id number] Implanted:Qty: 2 on 03/28/2021 by Edouard Luna MD at [facility] Left: Acetabulum ENCORE 02/04/2023 [id number] / / [id number] Hip Stem 7.0mm Femoral Echo Fx [place] Chromium - [id number] Implanted:Qty: 1 on 03/28/2021 by Edouard Luan MD at [facility] Left: Femur [employer] 12/14/2029 [id number] / / [id number] Acetabular Shell 41mm Endo Ii Titanium Alloy Unipolar - [id number] Implanted:Qty: 1 on 03/28/2021 by Edouard Luna MD at [facility] Left: Acetabulum [employer] 03/08/2023 [id number] / / [id number] Hip Centralizer 10mm Implant Cemented Versys 16b Bx/1ea - [id number] Implanted:Qty: 1 on 03/28/2021 by Edouard Luna MD at [facility] Left: Acetabulum SHAWN / DIV OF BRISTOL 20x200IBB 08/08/2030 [id number] / / [id number] Hip Insert 3.0mm Femoral Bio Cuevas Ii Endo Titanium Alloy Taper Plus - [id number] Implanted:Qty: 1 on 03/28/2021 by Edouard Luna MD at [facility] Left: Acetabulum [employer] 01/26/2031 [id number] / / [id number] Procedures Procedure Name Priority Date/Time Associated Diagnosis Comments AMB REFERRAL TO [facility] PHYSICAL THERAPY Routine 01/05/2025 6:16 PM EDT ENDOSCOPY, COLON 12/08/2024 11:2 0 AM EDT BI MAMMOGRAM SCREENING WITH TOMOSYNTHESIS [...] Health Maintenance Results * Ambulatory referral to [facility] Physical Therapy (01/05/2025 6:16 PM EDT) Other us Alison Evans MD AMB [facility] REFERRALS Final R esult * ENDOSCOPY, COLON (12/08/2024 11:20 AM EDT) Narrative Transcriptions Jeanine Santizo MD - 12/08/2024 11:20 AM EDT [facility] Patient Name: Saji Chavezdonna Attending MD:: JEANINE SANTIZO MD, Procedure Date: 12/08/2024 11:20 AM Date of : 1965 Age: 59 Admit Type: Outpatient Gender: Female Room: [place] [address] Referring MD: Suzanne De Leon Exam Type: [...] 11:20 AM Procedure Code(s): --- Professional --- 28853, Colonoscopy, flexible; with removal of tumor(s), polyp(s), or other lesion(s) by snare technique --- Technical --- 38355, Colonoscopy, flexible; with removal of tumor(s), polyp(s), or other lesion(s) by snare technique CPT copyright 2021 [employer]. All rights reserved. The codes documented in this report are preliminary and upon leaf binner reviewmay be revised to meet current compliance requirements. Procedure Date: 12/08/2024 11:20:[address] [place] [address] Suznane De Leon DROP BOARD MAN GI PROCEDURE ORDERABLES Final Result * BI MAMMOGRAM SCREENING WITH TOMOSYNTHESIS WITH [...] be notified of the results and recommendations. [facility] Soo Clayton DROP BOARD MAN IMG MG EXAMS Final Result * (ABNORMAL) Lipid panel (12/03/2023 10:10 AM EDT) HDL 44 mg/dL [facility] Comment: Interpretation <40 mg/dL: Low HDL cholesterol (major risk factor for CHD) Greater than or equal to 60 mg/dL: High HDL cholesterol ( negative risk factor for CHD) HDL - cholesterol is affected by a number of factors, e.g. smoking, excerise, hormones, sex and age. CHOLESTEROL 278(H) 0 - 240 mg/dL [facility] TRIGLYCERIDES 222(H) 30 - 160 mg/dL [facility] LDL 190(H) 50 - 129 mg/dL [facility] Comment: LDL levels in terms of risk for coronary heart disease: <100 mg/dL: Optimal 100-129 mg/dL: Near or above optimal 130-159 mg/dL: Borderline high 160-189 mg/dL: High >190 mg/dL: Very High CARDIAC RISK RATIO 6.3(H) 3.3 - 4.4 C [facility] Blood 12/03/2023 10:1 0 AM EDT 12/03/2023 10:20 AM EDT us [facility] LAB BLOOD ORDERABLES Final Re sult Performing Organization Address [facility]/ZIP Co de Phone Number [address] [address] * TSH with reflex (11/26/2023 11:36 AM EDT) TSH 0.85 0.27 - 4.20 uIU/mL [facility] Blood 11/26/2023 11:3 6 AM EDT 11/26/2023 11:38 AM EDT us [facility] LAB BLOOD ORDERABLES Final Re sult Performing Organization Address City/[facility]/ZIP Co de Phone Number [address] [address] * Pap Test (10/08/2023 12:00 AM EDT) 10/08/2023 10/09/2023 9:3 6 AM EDT Narrative SEE NARRATIVE - 10/15/2023 11:11 AM EDT [address] [address] Refinisher: Shonda Cruz MD CASING SOAKER Cytology Report FINAL DIAGNOSIS A. PAP SMEAR [...] 59, 66, 68) Note: Testing performed by [employer] HR-HPV analysis. Clinical correlation is advised. This HPV test was performed at [facility], [address] [place] [address]. This test has been FDA approved for both SurePath and ThinPrep cervical cytology specimens. The accuracy and precision of this test for all other specimen sources has been verified in the Cytopathology Laboratory of the [facility] and has not been cleared or approved by the U.S. Food and Drug Administration. Clinical correlation is advised. CLINICAL HISTORY Date of Last Menstrual Period: Not Provided Menstrual History: Post Menopausal Other Clinical Conditions: Screening Pap SPECIMEN SOURCE A: PAP SMEAR (SUREPATH) CE Patient Name: SAJI JULIAN : 1965 (Age: 58) Sex: F Institution: [facility] Location: [facility] Date of Collection: 10/08/2023 Date of Reported: 10/15/2023 11:11 Results to: Suzanne De Leon MSN us Suzanne De Leon DROP BOARD MAN CYTOLOGY ORDERABLES Final Res ult SEE NARRATIVE [...] bone mineral density was calculated at 0.636 gm/oj4gbnm a T- score of -1.9 falling within [...] withminimal decrease in bone density since 2008. us Brigida Elmore PAPER FOLDING MACHINE OPERATOR IMG BD BONE DENSITY DEXA F inal Result * Hepatitis C antibody, qualitative (11/11/2018 11:21 AM EDT) HCV Negative Negative [facility] Comment: This is a screening test and should be confirmed with molecular testing Blood 11/11/2018 11:2 1 AM EDT 11/11/2018 11:25 AM EDT us Saeed Alvarez MD LAB BLOOD ORDERABLES Donna browning Result [facility] [address] [place], [place] [id number] from Last 3 Months or Most Recently Relevant to Health Maintenance Insurance MEDIC[place] PART A [place] [id number] [facility] MEDICARE PART A & [place] [address] [place], [place] [address]HEALTH MEDICARE PART A & B [facility] [place] [address] [place] [address] MEDICARE PART A & B Member Subscriber Plan / Payer (Ef fective 1984-) Name:Saji Julian Member ID:[id number] Relation to Subscriber:Self Name:Saji Julian Subscriber ID:[id number] Payer ID:[id number] Group ID:Not on file Type:Medicare Address: [employer] [address] [place] [phone] [place] MED[place] PART A & B [facility] B [facility] MEDICARE PART A & B [facility] Advance Directives For more information, please contact: [phone] (9AM - 5PM [facility], Saturday-Saturday) Documents on File Type Date Recorded Patient Glue Machine Operator Expl anation Healthcare Proxy 04/04/2021 9:10 AM Durable Power of Manager Privacy 04/04/2021 9:10 AM * Full Code (Latest Code Status on File) Date Activated Date Inactivated Comments 03/28/2021 7:34 PM Question Answer Comments Code Status Confirmed With: Patient * Full Code Date Activated Date Inactivated Comments 03/28/2021 7:30 PM 03/28/2021 7:34 PM Question Answer Comments Code Status Confirmed With: PatientSurrogate Code Discussion Comments: penitentiary staff Healthcare Agents on File Name Relationship Healthcare Agent [facility] Afua Alvarenga Sister .Primary Health Care Agent (Proxy form on file) Care Teams Production Underwriter Relationship Specialty Start Date End Date Suzanne De LeonDINAH 234 [facility] [address] [place] [id number] PCP - General Family Medicine 07/20/21 Suzanne De Leon FNP 234 [facility] [address] [place] [id number] Insurance Assigned Provider 10/11/24 Additional Source Comments The information contained in this document represents components of the legal health record. It is not the complete legal health record.[facility]
--- OUTSIDE RECORDS SUMMARY | 2025-03-25 13:25 | XMS_ITS | Encounter Summary ---
Author Organization [facility] Address [address] [place] [address] Phone Care Team Providers Care Alcohol Rubber Name Role Phone Saeed Alvarez MD Unavailable Saeed Alvarez MD Primary Care Provider [phone] Suznane De Leon [facility] Primary Care Provider [phone] Spencer Chamorro MD Unavailable Suzanne De Leon [facility] Unavailable [phone] Encounter Details Date Type Department Care Team (Late st Contact Info) Description 06/02/2021 Procedure Pass [facility], [facility] [address] [place] [address] Social History Tobacco Use Types Packs/Day Years [...] st Contact Info) Description 11/19/2024 Procedure Pass [address] [address] 06/16/2025 10:30 AM EST Appointment [address] [address] Suzanne De Leon [facility] 234 [facility] 7 [place] [address] [email or web address] 08/03/2025 11:15 AM EST Appointment [facility] Bone Density [address] [address] Suzanne De Leon FNP [address] [address] documented as of this encounter Visit Diagnoses Not on filedocumented in this encounter Additional Health Concerns Assessment Noted Time PHQ-2 Depression Total Score: 1 06/20/20 20 11:09 AM EST documented as of this encounter Care Teams Alcohol Rubber Relationship Specialty Start Date End Date Saeed Alvarez MD [address] [place] [address] [address] [place] [phone] [email or web address] PCP - General 05/02/17 07/19/21 Suzanne De Leon FNP [address] [place] [address] 7 [place] [phone] PCP - General Family Medicine 07/20/21 Saeed Alvarez MD [address] [place] [address] [address] [place] [phone] [email or web address] Insurance Assigned Provider 09/10/15 Spencer Chamorro MD [address] [place] [address] 7 [place] [address] [email or web address] Insurance Assigned Provider 10/13/22 Suzanne De Leon FNP [address] [place] [address] 7 [place] [address] [email or web address] Insurance Assigned Provider 10/11/24 documented as of this encounter Additional Source Comments The information contained in this document represents components of the legal health record. It is not the complete legal health record.[facility]
--- OUTSIDE RECORDS SUMMARY | 2025-03-25 13:25 | XMS_ITS | Encounter Summary ---
Author Organization [facility] Address [address] [place] [address] Phone Care Team Providers Care Weeder Name Role Phone Suzanne De Leon [facility] Primary Care Provider [phone] Suzanne De Leon UNIFIED COMMUNICATIONS ARCHITECT Unavailable [phone] Encounter Details Date Type Department Care Team (Late st Contact Info) Description 12/08/2024 Procedure Pass [facility]oscopy Admitting Dept Virtual Department [address] [place] [address] Social History Tobacco Use Types Packs/Day Years [...] st Contact Info) Description 11/19/2024 Procedure Pass [address] [address] 06/16/2025 10:30 AM EST Appointment [address] [address] Suzanne De Leon FNP [address] [place] [email or web address] 08/03/2025 11:15 AM EST Appointment [facility] Bone Density [address] [address] Suzanne De Leon FNP [address] [address] [email or web address] documented as of this encounter Visit Diagnoses Not on filedocumented in this encounter Additional Health Concerns Assessment Noted Time PHQ-2 Depression Total Score: 0 11/18/19 25 11:54 AM EDT documented as of this encounter Care Teams Weeder Relationship Specialty Start Date End Date Suzanne De Leon FNP [address] [place] [phone] [email or web address] PCP - General Family Medicine 07/20/21 Suzanne De Leon FNP [address] [place] [address] 7 [place] [address] [email or web address] Insurance Assigned Provider 10/11/24 documented as of this encounter Additional Source Comments The information contained in this document represents components of the legal health record. It is not the complete legal health record.[facility]
--- OUTSIDE RECORDS SUMMARY | 2025-03-25 13:25 | XMS_ITS | Encounter Summary ---
Author Organization [facility] Address [address] [place] [address] Phone Care Team Providers Care Baling Machine Tender Name Role Phone Saeed Alvarez MD Unavailable Saeed Alvarez MD Primary Care Provider [phone] Suzanne De Leon [facility] Primary Care Provider [phone] Spencer Chamorro MD Unavailable Suzanne De Leon [facility] Unavailable [phone] Encounter Details Date Type Department Care Team (Late st Contact Info) Description 07/31/2017 Ancillary Orders [facility] [address] [place] [address] Saeed Alvarez MD 234 [facility]. [address] [place] [address] [email or web address] Qualified Breast screening Social History Tobacco Use Types [...] Contact Info) Description 11/19/2024 Procedure Pass [address] [address] 06/16/2025 10:30 AM EST Appointment [address] [address] Haley Suzanne Vann, [facility] 234 [facility], [address] [place] [address] 08/03/2025 11:15 AM EST Appointment [facility], Bone Density [address] [address] Suzanne De Leon Soo, [address], [address] [place] [address] documented as of this encounter Results * [...] lowers the sensitivity of mammography. POS - [id number] Narrative 10/15/2017 11:05 AM EDT Full-field digital [...] whichlowers the sensitivity of mammography. POS - [id number] Saeed Alvarez MD IMG MG EXAMS Final [...] documented as of this encounter Care Teams Baling Machine Tender Relationship Specialty Start Date End Date Saeed Alvarez MD [address] [place] [address] [address] [place] [phone] [email or web address] PCP - General 05/02/17 07/19/21 Suzanne De Leon FNP [address] [place] [address], [address] [place] [address] [email or web address] PCP - General Family Medicine 07/20/21 Saeed Alvarez MD [address] [place] [address] [address] [place] [address] [email or web address] Insurance Assigned Provider 09/10/15 Spencer Chamorro MD [address] [place] [address], [address] [place] [address] [email or web address] Insurance Assigned Provider 10/13/22 Suzanne De Leon FNP [address] [place] [address], [address] [place] [address] [email or web address] Insurance Assigned Provider 10/11/24 documented as of this encounter Additional Source Comments The information contained in this document represents components of the legal health record. It is not the complete legal health record.[facility]
--- OUTSIDE RECORDS SUMMARY | 2025-03-25 13:25 | XMS_ITS | Encounter Summary ---
Author Organization [facility] Address [address] [place] [address] Phone Care Team Providers Care Adjunct Instructor Chemistry Name Role Phone Suzanne De Leon [facility] Primary Care Provider [phone] Suzanne De Leon FURNACE WORKER Unavailable [phone] Encounter Details Date Type Department Care Team (Late st Contact Info) Description 01/21/2024 Procedure Pass [facility]oscopy Admitting Dept Virtual Department 30 [place] [address] Social History Tobacco Use Types Packs/Day Years [...] st Contact Info) Description 11/19/2024 Procedure Pass [address] [address] 06/16/2025 10:30 AM EST Appointment [address] [address] Suzanne De Leon FNP [address] [place] [address] 08/03/2025 11:15 AM EST Appointment [facility] Bone Density [address] [address] Suzanne De Leon FNP [address] [address] [email or web address] documented as of this encounter Visit Diagnoses Not on filedocumented in this encounter Additional Health Concerns Assessment Noted Time PHQ-2 Depression Total Score: 0 10/08/19 24 11:24 AM EDT documented as of this encounter Care Teams Adjunct Instructor Chemistry Relationship Specialty Start Date End Date Suzanne De Leon FNP [address] [place] [address] [email or web address] PCP - General Family Medicine 07/20/21 Suzanne De Leon FNP [address] [place] [address] 7 [place] [address] [email or web address] Insurance Assigned Provider 10/11/24 documented as of this encounter Additional Source Comments The information contained in this document represents components of the legal health record. It is not the complete legal health record.[facility]
--- OUTSIDE RECORDS SUMMARY | 2025-03-25 13:25 | XMS_ITS | Encounter Summary ---
Author Organization [facility] Address [address] [place] [address] Phone Care Team Providers Care Immigration Services Officer Name Role Phone Suzanne De Leon [facility] Primary Care Provider [phone] Suzanne De Leon [facility] Unavailable [phone] Encounter Details Date Type Department Care Team (Late st Contact Info) Description 10/08/2023 Procedure Pass [facility], [address] [address] Social History Tobacco Use Types Packs/Day Years [...] Contact Info) Description 11/19/2024 Procedure Pass [address] [address] 06/16/2025 10:30 AM EST Appointment [address] [address] Suzanne De Leon FNP [address] [place] [address] 08/03/2025 11:15 AM EST Appointment [address] [address] Suzanne De Leon FNP [address] [place] [address] documented as of this encounter Visit Diagnoses Not on filedocumented in this encounter Additional Health Concerns Assessment Noted Time PHQ-2 Depression Total Score: 0 10/08/19 24 11:24 AM EDT documented as of this encounter Care Teams Immigration Services Officer Relationship Specialty Start Date End Date Suzanne De Leon FNP [address] [place] [address] [email or web address] PCP - General Family Medicine 07/20/21 Suzanne De Leon FNP [address] [place] [address] 7 [place] [address] [email or web address] Insurance Assigned Provider 10/11/24 documented as of this encounter Additional Source Comments The information contained in this document represents components of the legal health record. It is not the complete legal health record.[facility]
== END 2025-03-25 12:45 | disposition home or self-care (01) ==
LOC: HO.HOS 11:06
PROVIDERS: PCP Nurse Practitioner Family; Visit Provider Physician Assistant
DX: S72.92XA Unspecified fracture of left femur, initial encounter for closed fracture (principal)
CPT/HCPCS: 27500; 99203

== ENCOUNTER → 2025-03-25 11:14 | Outpatient (BNV) | payer MEDICARE, MEDICAID, SELFPAY | PROVIDERS: Visit Provider Radiology Diagnostic Radiology | DX: S72.402G Unspecified fracture of lower end of left femur, subsequent encounter for closed fracture with delayed healing (principal) | CPT/HCPCS: 73552 ==

== ENCOUNTER 2025-04-01 12:43 | Outpatient (REF) | payer MEDICARE, MEDICAID, SELFPAY ==
--- OUTSIDE RECORDS SUMMARY | 2025-04-01 17:31 | XMS_ITS | Encounter Summary ---
Author Organization [facility] Address [address] [place] [address] Phone Care Team Providers Care Resident Physician In Radiology Name Role Phone Saeed Alvarez MD Unavailable Saeed Alvarez MD Primary Care Provider [phone] Suzanne De LeonP Primary Care Provider Spencer Chamorro MD Unavailable Suzanne De LeonP Unavailable Encounter Details Date Type Department Care Team (Late st Contact Info) Description 08/05/2019 Ancillary Orders Virtual Department [address] [place] [address] Saeed Alvarez MD [address] [place] [address] [address] [place] [id number] [email or web address] Breast screening Social History Tobacco Use Types [...] st Contact Info) Description 11/19/2024 Procedure Pass [facility], [address] [address] 06/16/2025 10:30 AM EST Appointment [address] [address] Suzanne De Leon FNP 234 [facility], [facility] [address] [place] [address] [email or web address] 08/03/2025 11:15 AM EST Appointment [facility] Bone Density [address] [address] Suzanne De Leon FNP 234 [facility], [facility] [address] [place] [address] [email or web address] documented as of this encounter Visit Diagnoses Diagnosis Breast screening Breast screening, unspecified documented in this encounter Additional Health Concerns Infection Onset Date Last Indicated Resolved Time CoV-Exposed Comment:Recent close contact 05/13/2020 05/13/2020 05/27/2020 1:25 AM EST CoV-Exposed Comment:Recent close contact documented in the COVID-19 PCR/PRO order 02/01/2021 02/02/2021 02/26/2021 1:23 AM E DT documented as of this encounter Care Teams Resident Physician In Radiology Relationship Specialty Start Date End Date Saeed Alvarez MD [address] [place] [address] [address] [place] [phone] [email or web address] PCP - General 05/02/17 07/19/21 Suzanne De Leon FNP [address] [place] [address] [address] [place] [address] [email or web address] PCP - General Family Medicine 07/20/21 Saeed Alvarez MD [address] [place] [address] [address] [place] [phone] [email or web address] Insurance Assigned Provider 09/10/15 Spencer Chamorro MD [address] [place] [address], [address] [place] [address] [email or web address] Insurance Assigned Provider 10/13/22 Suzanne De Leon FNP [address] [place] [address], [address] [place] [address] [email or web address] Insurance Assigned Provider 10/11/24 documented as of this encounter Additional Source Comments The information contained in this document represents components of the legal health record. It is not the complete legal health record.[facility]
--- OUTSIDE RECORDS SUMMARY | 2025-04-01 17:31 | XMS_ITS | Encounter Summary ---
Author Organization [facility] Address [address] [place] [address] Phone Care Team Providers Care Recreation Establishment Manager Name Role Phone Suzanne De Leon [facility] Primary Care Provider [phone] Suzanne De Leon ASSISTANT ADMINISTRATOR Unavailable [phone] Encounter Details Date Type Department Care Team (Late st Contact Info) Description 01/21/2024 Procedure Pass [facility]oscopy Admitting Dept Virtual Department [address] [place] [address] Social History Tobacco Use Types Packs/Day Years [...] Contact Info) Description 11/19/2024 Procedure Pass [address] [address] 06/16/2025 10:30 AM EST Appointment [address] [address] Suzanne De Leon FNP [address] [place] [address] 08/03/2025 11:15 AM EST Appointment [facility] Bone Density [address] [address] Suzanne De Leon FNP [address] [address] documented as of this encounter Visit Diagnoses Not on filedocumented in this encounter Additional Health Concerns Assessment Noted Time PHQ-2 Depression Total Score: 0 10/08/19 24 11:24 AM EDT documented as of this encounter Care Teams Recreation Establishment Manager Relationship Specialty Start Date End Date Suzanne De Leon FNP [address] [place] [address] [email or web address] PCP - General Family Medicine 07/20/21 Suzanne De Leon FNP [address] [place] [address] 7 [place] [address] [email or web address] Insurance Assigned Provider 10/11/24 documented as of this encounter Additional Source Comments The information contained in this document represents components of the legal health record. It is not the complete legal health record.[facility]
--- OUTSIDE RECORDS SUMMARY | 2025-04-01 17:31 | XMS_ITS | Encounter Summary ---
Author Organization [facility] Address [address] [facility] [place] [address] Phone Care Team Providers Care Can Worker Name Role Phone Saeed Alvarez MD Unavailable Suzanne De LeonP Primary Care Provider Spencer Chamorro MD Unavailable Suzanne De Leon Unavailable Encounter Details Date Type Department Care Team (Latest Contact Info) Description 09/06/2022 Transcribe Orders Virtual Department 30 [place] [address] Suzanne De Leon FNP [address] [place] [address] 7 [place] [address] [email or web address] Breast screening (Primary Dx) Social History Tobacco [...] st Contact Info) Description 11/19/2024 Procedure Pass [address] [address] 06/16/2025 10:30 AM EST Appointment [address] [address] Suzanne De Leon FNP [address] [facility], [facility] 7 [place] [address] [email or web address] 08/03/2025 11:15 AM EST Appointment [facility] Bone Density [address] [address] Suzanne De Leon FNP [address] [place] [address] 7 [place] [address] Scheduled Orders Name Type Priority Associated Diagnoses Orde r Schedule Mammogram Screening (Bilateral) Imaging Routine Breast screening Expected: 09/06/2022, Expires: 03/09/2025 documented as of this encounter Visit Diagnoses Diagnosis Breast screening- Primary Breast screening, unspecified documented in this encounter Additional Health Concerns Assessment Noted Time PHQ-2 Depression Total Score: 1 06/20/20 20 11:09 AM EST documented as of this encounter Care Teams Can Worker Relationship Specialty Start Date End Date Suzanne De Leon FNP [address] [place] [address] 7 [place] [address] PCP - General Family Medicine 07/20/21 Saeed Alvarez MD [address] [place] [address] [address] [place] [phone] [email or web address] Insurance Assigned Provider 09/10/15 Spencer Chamorro MD [address] [facility], [address] [place] [address] [email or web address] Insurance Assigned Provider 10/13/22 Suzanne De Leon FNP [address] [facility], [address] [place] [address] [email or web address] Insurance Assigned Provider 10/11/24 documented as of this encounter Additional Source Comments The information contained in this document represents components of the legal health record. It is not the complete legal health record.[facility]
--- OUTSIDE RECORDS SUMMARY | 2025-04-01 17:31 | XMS_ITS | Encounter Summary ---
Author Organization [facility] Address [address] [place] [address] Phone Care Team Providers Care Supervisor Die Casting Name Role Phone Saeed Alvarez MD Unavailable Suzanne De Leon [facility] Primary Care Provider [phone] Spencer Chamorro MD Unavailable Suzanne De Leon [facility] Unavailable [phone] Reason for Visit * Reason Onset Date Comments orders 03/15/2022 HCP orders Encounter Details Date Type Department Care Team ([facility] st Contact Info) Description 03/15/2022 Telephone [place] [facility] [address] [place] [address] Richard Ward, [facility] [address] [place] [address] orders (HCP orders) Social History Tobacco Use [...] Any questions she can be reached at [phone] or [phone] documented in this encounter Plan of Treatment Upcoming Encounters Date Type Department Care Team (Late st Contact Info) Description 11/19/2024 Procedure Pass [address] [address] 06/16/2025 10:30 AM EST Appointment [address] [address] Suzanne De Leon FNP [address] [place] [address], [address] [place] [address] 08/03/2025 11:15 AM EST Appointment [facility] 30 [place] [address] Suzanne De LeonDINAH [address] [facility], [address] [place] [address] [email or web address] documented as of this encounter Visit Diagnoses Diagnosis Incontinence of feces with fecal urgency- Primary documented in this encounter Additional Health Concerns Assessment Noted Time PHQ-2 Depression Total Score: 1 06/20/20 20 11:09 AM EST documented as of this encounter Care Teams Supervisor Die Casting Relationship Specialty Start Date End Date Szuanne De LeonDINAH [address] [place] [address], [facility] 7 [place] [address] [email or web address] PCP - General Family Medicine 07/20/21 Saeed Alvarez MD [address] [place] [address] [address] [place] [phone] [email or web address] Insurance Assigned Provider 09/10/15 Spencer Chamorro MD [address] [place] [address], [address] [place] [id number] Insurance Assigned Provider 10/13/22 Suzanne De Leon DINAH Vann [address] [place] [address] [address] [place] [address] [email or web address] Insurance Assigned Provider 10/11/24 documented as of this encounter Additional Source Comments The information contained in this document represents components of the legal health record. It is not the complete legal health record.[facility]
--- OUTSIDE RECORDS SUMMARY | 2025-04-01 17:31 | XMS_ITS | Encounter Summary ---
Author Organization [facility] Address [address] [place] [address] Phone Care Team Providers Care Sap Architect Name Role Phone Haley Suzanne Vann [facility] Primary Care Provider Spencer Chamorro MD Unavailable Suzanne De Leon [facility] Unavailable [phone] Encounter Details Date Type Department Care Team (Late st Contact Info) Description 12/19/2022 Procedure Pass [facility], Ct Scan - [address] [address] Social History Tobacco Use Types Packs/Day Years [...] Contact Info) Description 11/19/2024 Procedure Pass [address] [address] 06/16/2025 10:30 AM EST Appointment [address] [address] Suzanne De Leon FNP [address] [place] [address] 08/03/2025 11:15 AM EST Appointment [facility] Density [address] [address] Suzanne De Leon FNP [address] [place] [address] documented as of this encounter Visit Diagnoses Not on filedocumented in this encounter Additional Health Concerns Assessment Noted Time PHQ-2 Depression Total Score: 1 06/20/20 20 11:09 AM EST documented as of this encounter Care Teams Sap Architect Relationship Specialty Start Date End Date Suzanne De Leon FNP [address] [place] [address] [place] [address] PCP - General Family Medicine 07/20/21 Spencer Chamorro MD [address] [place] [address] Insurance Assigned Provider 10/13/22 Suzanne De Leon FNP [address] [place] [address], [address] [place] [address] [email or web address] Insurance Assigned Provider 10/11/24 documented as of this encounter Additional Source Comments The information contained in this document represents components of the legal health record. It is not the complete legal health record.[facility]
--- OUTSIDE RECORDS SUMMARY | 2025-04-01 17:31 | XMS_ITS | Encounter Summary ---
Author Organization [facility] Address [address] [place] [address] Phone Care Team Providers Care Corporate Vp Advertising & Online Name Role Phone Saeed Alvarez MD Unavailable Saeed Alvarez MD Primary Care Provider [phone] Suzanne De LeonP Primary Care Provider [phone] Spencer Chamorro MD Unavailable Suzanne De LeonP Unavailable [phone] Encounter Details Date Type Department Care Team (Late st Contact Info) Description 03/28/2021 Procedure Pass OR Admitting Dept - Virtual Department 30 [place] [address] Social History Tobacco Use Types Packs/Day Years [...] 7:46 PM EDT Jillian Johnson RN * Citrus Suicide Severity Rating Scale (Screener/Recent Self-Report) Question [...] st Contact Info) Description 11/19/2024 Procedure Pass [address] [address] 06/16/2025 10:30 AM EST Appointment [address] [address] Suzanne De Leon, [address] 7 [place] [address] [email or web address] 08/03/2025 11:15 AM EST Appointment [address] [address] Suzanne De Leon, [address] 7 [place] [address] [email or web address] documented as of this encounter Visit Diagnoses Not on filedocumented in this encounter Additional Health Concerns Assessment Noted Time PHQ-2 Depression Total Score: 1 06/20/20 20 11:09 AM EST documented as of this encounter Care Teams Corporate Vp Advertising & Online Relationship Specialty Start Date End Date Saeed Alvarez MD [address] [place] [address] [address] [place] [address] [email or web address] PCP - General 05/02/17 07/19/21 Suzanne De Leon FNP [address] [place] [address], [address] [place] [address] [email or web address] PCP - General Family Medicine 07/20/21 Saeed Alvarez MD [address] [place] [address] [address] [place] [phone] [email or web address] Insurance Assigned Provider 09/10/15 Spencer Chamorro MD [address] [place] [address], [address] [place] [address] [email or web address] Insurance Assigned Provider 10/13/22 Suzanne De Leon FNP [address] [place] [address], [address] [place] [address] [email or web address] Insurance Assigned Provider 10/11/24 documented as of this encounter Additional Source Comments The information contained in this document represents components of the legal health record. It is not the complete legal health record.[facility]
--- OUTSIDE RECORDS SUMMARY | 2025-04-01 17:31 | XMS_ITS | Encounter Summary ---
Author Organization [facility] Address [address] [place] [address] Phone Care Team Providers Care Garment Turner Name Role Phone Saeed Alvarez MD Unavailable Saeed Alvarez MD Primary Care Provider [phone] Suzanne De LeonP Primary Care Provider [phone] Spencer Chamorro MD Unavailable Suzanne De LeonP Unavailable Encounter Details Date Type Department Care Team (Late st Contact Info) Description 02/24/2021 Procedure Pass [facility], [address] [address] Social History Tobacco Use Types Packs/Day Years [...] Upcoming Encounters Date Type Department Care Team ([facility] st Contact Info) Description 11/19/2024 Procedure Pass [address] [address] 06/16/2025 10:30 AM EST Appointment [address] [address] Suzanne De Leon FNP [address] [place] [address] 7 [place] [address] [email or web address] 08/03/2025 11:15 AM EST Appointment [facility] Bone Density [address] [address] Suzanne De Leon [address] 7 [place] [address] [email or web address] documented as of this encounter Visit Diagnoses Not on filedocumented in this encounter Additional Health Concerns Infection Onset Date Last Indicated Resolved Time CoV-Exposed Comment:Recent close contact documented in the COVID-19 PCR/PRO order 02/01/2021 02/02/2021 02/26/2021 1:23 AM E DT Assessment Noted Time PHQ-2 Depression Total Score: 1 06/20/20 20 11:09 AM EST documented as of this encounter Care Teams Garment Turner Relationship Specialty Start Date End Date Saeed Alvarez MD [address] [place], [place] [address] [place] [address] [email or web address] PCP - General 05/02/17 07/19/21 Suzanne De Leon FNP [address] [place] [address] 7 [place] [address] [email or web address] PCP - General Family Medicine 07/20/21 Saeed Alvarez MD [address] [place] [address] [address] [place] [phone] [email or web address] Insurance Assigned Provider 09/10/15 Spencer Chamorro MD [address] [place] [address], [address] [place] [address] [email or web address] Insurance Assigned Provider 10/13/22 Suzanne De Leon FNP [address] [place] [address], [address] [place] [address] [email or web address] Insurance Assigned Provider 10/11/24 documented as of this encounter Additional Source Comments The information contained in this document represents components of the legal health record. It is not the complete legal health record.[facility]
--- OUTSIDE RECORDS SUMMARY | 2025-04-01 17:31 | XMS_ITS | Encounter Summary ---
Author Organization [facility] Address [address] [place] [address] Phone Care Team Providers Care Site Lead Name Role Phone Saeed Alvarez MD Unavailable Saeed Alvarez MD Primary Care Provider [phone] Suzanne De Leon [facility] Primary Care Provider [phone] Spencer Chamorro MD Unavailable Suzanne De LeonP Unavailable [phone] Reason for Referral * MRI/CAT Scan - Closed Specialty Diagnoses / Procedures Referred By Brent to Referred To Contact Radiology Diagnoses Memory loss Procedures MRI Brain Timmy Gomez MD Phone: tel: fax: [email or web address] Referral ID Status Reason Start Date Expiration Date Visits Re quested Visits Authorized [id number] Closed 02/24/2021 02/24/2022 1 1 Encounter Details Date Type Department Care Team (Latest Contact Info) Description 02/24/2021 Transcribe Orders Virtual Department 30 [place] [address] Timmy Gomez MD [address] [place] [address], [address] [place] [address] [email or web address] Memory loss (Primary Dx) Social History [...] st Contact Info) Description 11/19/2024 Procedure Pass [address] [address] 06/16/2025 10:30 AM EST Appointment [address] [address] Suzanne De Leon, [address] [address] [email or web address] 08/03/2025 11:15 AM EST Appointment [facility] Bone [address] [address] uSzanne De Leon, [address] [address] [email or web address] documented as of this encounter Results * [...] major intracranial arteries and veins. Procedure Note Laim Escalante MD - 05/16/2021 HISTORY: Cognitive decline [...] documented as of this encounter Care Teams Site Lead Relationship Specialty Start Date End Date Saeed Alvarez MD [address] [place] [address] [address] [place] [phone] [email or web address] PCP - General 05/02/17 07/19/21 Suzanne De Leon FNP [address] [place] [address] 7 [place] [address] [email or web address] PCP - General Family Medicine 07/20/21 Saeed Alvarez MD [address] [place] [address] [address] [place] [phone] [email or web address] Insurance Assigned Provider 09/10/15 Spencer Chamorro MD [address] [place] [address] 7 [place] [address] [email or web address] Insurance Assigned Provider 10/13/22 Suzanne De Leon FNP [address] [place] [address] 7 [place] [address] [email or web address] Insurance Assigned Provider 10/11/24 documented as of this encounter Additional Source Comments The information contained in this document represents components of the legal health record. It is not the complete legal health record.[facility]
--- OUTSIDE RECORDS SUMMARY | 2025-04-01 17:31 | XMS_ITS | Encounter Summary ---
Author Organization [facility] Address [address] [place] [address] Phone Care Team Providers Care Alumni Relations Manager Name Role Phone Saeed Alvarez MD Unavailable Saeed Alvarez MD Primary Care Provider [phone] Suzanne De Leon [facility] Primary Care Provider [phone] Spencer Chamorro MD Unavailable Suzanne De Leon [facility] Unavailable Encounter Details Date Type Department Care Team (Late st Contact Info) Description 08/11/2018 Ancillary Orders [facility] Medicine [address] [place] [id number] Saeed Alvarez MD [address] [facility]. [address] [place] [id number] [email or web address] Breast screening Social History Tobacco Use Types [...] st Contact Info) Description 11/19/2024 Procedure Pass [address] [address] 06/16/2025 10:30 AM EST Appointment [address] [address] Haley Suzanne Vann, [facility] [address] [facility], [address] [place] [address] 08/03/2025 11:15 AM EST Appointment [facility], Bone Density [address] [address] Suzanne De Leon Soo, [facility] [address] [facility], [address] [place] [address] [email or web address] documented as of this encounter Results * [...] which lowers the sensitivity of mammography. POS -[id number] Narrative 10/22/2018 8:07 AM EDT Bilateral full-field [...] appearance whichlowers the sensitivity of mammography. POS -[id number] Saeed Alvarez MD IMG MG EXAMS Final [...] documented as of this encounter Care Teams Alumni Relations Manager Relationship Specialty Start Date End Date Saeed Alvarez MD [address] [place], [place] [address] [place] [phone] [email or web address] PCP - General 05/02/17 07/19/21 Suzanne De Leon FNP [address] [place] [address], [address] [place] [address] [email or web address] PCP - General Family Medicine 07/20/21 Saeed Alvarez MD [address] [place] [address] [address] [place] [phone] [email or web address] Insurance Assigned Provider 09/10/15 Spencer Chamorro MD [address] [place] [address], [address] [place], [place] [address] [email or web address] Insurance Assigned Provider 10/13/22 Suzanne De Leon FNP [address] [place] [address], [address] [place] [address] [email or web address] Insurance Assigned Provider 10/11/24 documented as of this encounter Additional Source Comments The information contained in this document represents components of the legal health record. It is not the complete legal health record.[facility]
--- OUTSIDE RECORDS SUMMARY | 2025-04-01 17:31 | XMS_ITS | Encounter Summary ---
Author Organization [facility] Address [address] [place] [address] Phone Care Team Providers Care Grinder Chipper Name Role Phone Suzanne De Leon [facility] Primary Care Provider [phone] Suzanne De Leon [facility] Unavailable [phone] Encounter Details Date Type Department Care Team (Late st Contact Info) Description 10/08/2023 Procedure Pass [facility], [address] [address] Social History Tobacco Use Types Packs/Day Years [...] Contact Info) Description 11/19/2024 Procedure Pass [address] [address] 06/16/2025 10:30 AM EST Appointment [address] [address] Suzanne De Leon FNP [address] [place] [address] 08/03/2025 11:15 AM EST Appointment [address] [address] Suzanne De Leon FNP [address] [place] [address] [email or web address] documented as of this encounter Visit Diagnoses Not on filedocumented in this encounter Additional Health Concerns Assessment Noted Time PHQ-2 Depression Total Score: 0 10/08/19 24 11:24 AM EDT documented as of this encounter Care Teams Grinder Chipper Relationship Specialty Start Date End Date Suzanne De Leon FNP [address] [place] [address] [email or web address] PCP - General Family Medicine 07/20/21 Suzanne De Leon FNP [address] [place] [address] 7 [place] [address] [email or web address] Insurance Assigned Provider 10/11/24 documented as of this encounter Additional Source Comments The information contained in this document represents components of the legal health record. It is not the complete legal health record.[facility]
--- OUTSIDE RECORDS SUMMARY | 2025-04-01 17:31 | XMS_ITS | Clinical Summary ---
Author Organization [facility] Address [address] [place] [address] Phone Care Team Providers Care Patrol Inspector Name Role Phone Suzanne De Leon [facility] Primary Care Provider [phone] Suzanne De Leon [facility] Unavailable [phone] Allergies Active Allergy Reactions Criticality Noted Date [...] 02/09/20 22 Active acetaminophen (TYLENOL) 325 mg tabletIndications: Fever,Pain Take 2 tablets (650 mg total) by mouth every 4 (four) hours as needed for fever or pain (specific location in comments). 90 tablet 5 12/25/19 23 Active menthol (BIOFREEZE, MENTHOL,) 4 % Gel Apply 5 mL topically 3 (three) times a day. 237 mL 1 06/21/20 23 Active atorvastatin (LIPITOR) 40 MG tabletIndications: High cholesterol Take 1 tablet (40 mg total) by mouth every morning. 30 tablet 11 12/30/19 24 Active omeprazole (PRILOSEC) 40 MG capsuleIndications :Gastroesophageal reflux disease TAKE 1 CAPSULE BY MOUTH DAILY AT BEDTIME 28 capsule 11 06/01/20 24 Active multivitamin per tabletIndications: Medication refill Take 1 tablet by mouth every morning. 28 tablet 11 08/25/19 25 Active calcium carbonate-vitamin D3 (CALCIUM-VITAMIN D) 500 mg-200 units per tabletIndications: Age-related osteoporosis without current pathological fracture Take 1 tablet by mouth every morning. 90 tablet 3 10/27/19 25 Active cholecalciferol (VITAMIN D3) 2,000 unit capsule Take 1 capsule (2,000 Units total) by mouth daily. 90 capsule 3 11/18/19 25 Active cetirizine (ZYRTEC) 10 MG tabletIndications: Allergy Take 1 tablet (10 mg total) by mouth every evening. 90 tablet 3 12/31/19 25 Active loperamide (IMODIUM A-D) 2 mg tablet Take 1 tablet (2 mg total) by mouth every other day. 60 tablet 2 12/31/19 25 Active oxyBUTYnin (DITROPAN-XL) 10 MG 24 hr tabletIndications: Overactive bladder TABLET BY MOUTH EVERY MORNING 90 tablet 3 01/29/20 25 Active levothyroxine (SYNTHROID, LEVOTHROID) 100 MCG tabletIndications: Hypothyroidism, unspecified type TAKE 1 TABLET BY MOUTH FIVE TIMES A WEEK ON SATURDAY, SATURDAY, SATURDAY, SATURDAY, AND SATURDAY . 28 tablet 3 03/01/20 25 Active levETIRAcetam (KEPPRA) 750 MG IMMEDIATE release tablet Take 1 tablet (750 mg total) by mouth nightly at bedtime. 90 tablet 3 03/16/20 25 Active ibuprofen (ADVIL,MOTRIN) 400 MG tabletIndications: Primary osteoarthritis involving multiple joints Take 1 tablet (400 mg total) by mouth 2 (two) times a day. 60 tablet 03/16/20 25 Active levothyroxine (SYNTHROID, LEVOTHROID) 50 MCG tabletIndications: Hypothyroid TAKE 1 TABLET BY MOUTH TWICE A [...] 25 Active guaiFENesin (ROBITUSSIN) 100 mg/5 mL syrupIndications:C ough Take 10 mL (200 mg total) by mouth daily as needed for cough. 120 mL 1 03/16/20 25 Active levETIRAcetam (KEPPRA) 750 MG tablet 1 tab every AM and 1 tab every evening 025 Discontin ued(Reord er) fluoride, sodium, (PREVIDENT 5000 BOOSTER) 1.1 % Pste Use as directed in the mouth or throat nightly at bedtime. 025 Discontin ued(Reord er) mirtazapine (REMERON) 7.5 MG tablet Take 7.5 mg by mouth nightly at bedtime. 025 Discontin ued(Reord er) guaiFENesin (ROBITUSSIN) 100 mg/5 mL syrupIndications:C ough Take 10 mL (200 mg total) by mouth daily as needed for cough. 120 mL 1 02/27/20 24 025 Discontin ued(Reord er) alendronate (FOSAMAX) 70 MG tablet Take 1 tablet (70 mg total) by mouth every 7 days. Take on Saturday. Take in the morning with a full glass of water, on an empty stomach, and do not take anything else by mouth or lie down for the next 30 min. 4 tablet 11 06/25/20 24 025 Discontin ued(Reord er) levothyroxine (SYNTHROID, LEVOTHROID) 50 MCG tabletIndications: Hypothyroid TAKE 1 TABLET BY MOUTH TWICE A WEEK ON MONDAYS AND THURSDAYS 8 tablet 02/26/20 25 025 Discontin ued(Reord er) ibuprofen (ADVIL,MOTRIN) 400 MG tabletIndications: Primary osteoarthritis involving multiple joints TAKE 1 TABLET BY MOUTH TWICE A DAY 60 tablet 02/26/20 25 025 Discontin ued(Reord er) Active Problems Problem Noted Date Diagnosed Date [...] - Patient should follow-up in orthopedic clinic ([phone]) in approximately 2 weeks time with repeat weightbearing x-rays of the pelvis and operative hip. Left ankle swelling 12/11/2019 08/01/19 22 Assessment & Plan (12/11/2019 2:12 PM EDT): [...] Type Department Care Team Description 03/16/2025 Refill [facility] [address] [place] [address] Radha Hernández Medication Refill 03/02/2025 9:45 AM EDT Office Visit [facility] [address] [place] [address] Alison Evans MD Pepyne, Diane Ma, PT Chronic right shoulder pain (Primary Dx); Right hand pain 03/01/[address] [address] Suzanne De Leon FNP Medication Refill ( levothyroxine (SYNTHROID, LEVOTHROID) 100 MCG tablet /) 02/24/2025 Refill [facility] [address] [place] [address] Anitra Arechiga CNP Medication Refill 2025 10:30 AM EDT Office Visit [facility] [address] [place] [address] Alison Evans MD Pepyne, Rachael Mervine, PT Chronic right shoulder pain (Primary Dx); Right hand pain 02/10/2025 12:54 PM EDT - 02/10/2025 1:00 PM EDT [facility] [address] [place] [address] Discharge Disposition: Left Without Being Seen 02/02/2025 10:15 AM EDT Office Visit [facility] [address] [place] [address] Alison Evans MD Pepyne, Rachael Mervine, PT Chronic right shoulder pain (Primary Dx); Right hand pain 01/28/[address] [address] Jillian Arevalo [place] Medication Refill 01/26/2025 10:15 AM EDT Office Visit [facility] [address] [place] [address] Alison Evans MD Pepyne, Rachael Mervine, PT Chronic right shoulder pain (Primary Dx); Right hand pain 01/19/2025 10:15 AM EDT Office Visit [facility] [address] [place] [address] Alison Evans MD Pepyne, Rachael Mervine, PT Chronic right shoulder pain (Primary Dx); Right hand pain 01/12/2025 3:15 PM EDT Office Visit [facility] [address] [place] [address] Alison Evans MD Swannie, Ward, HARPSICHORD MAKER Chronic right shoulder pain (Primary Dx) 01/05/2025 10:30 AM EDT Office Visit [facility] [address] [place] [address] Alison Evans MD Pepyne, Diane Ma, HAYDE Chronic right shoulder pain (Primary Dx); Right hand pain 01/05/2025 Plan of Care Documentation [facility] [address] [place] [address] 12/30/2024 Refill [facility] [address] [place] [address] Jillian Arevalo [place] Medication Refill from Last [...] Contact Info) Description 11/19/2024 Procedure Pass [address] [address] 06/16/2025 10:30 AM EST Appointment [address] [address] Suzanne De Leon FNP [address] [facility], [address] [place] [address] [email or web address] 08/03/2025 11:15 AM EST Appointment [facility], Bone Density - [address] [address] Suzanne De Leon, ANIMAL DAMAGE CONTROL AGENT [address] [facility], [address] [place] [address] [email or web address] Health Maintenance Due Date Last Done Comments [...] this topic Medical Devices Implanted Type Area Filling Winder Device Identifier Shelf Expiration Date Model / Serial / Lot Cement Bone 40gm Kanosh Gentamicin High Viscosity Softpac - [id number] Implanted:Qty: 2 on 03/28/2021 by Edouard Luna MD at [facility] Left: Acetabulum ENCORE 02/04/2023 [id number] / / [id number] Hip Stem 7.0mm Femoral Echo Fx Kanosh Chromium - [id number] Implanted:Qty: 1 on 03/28/2021 by Edouard Luna MD at [facility] Left: Femur [employer] 12/14/2029 [id number] / / [id number] Acetabular Shell 41mm Endo Ii Titanium Alloy Unipolar - [id number] Implanted:Qty: 1 on 03/28/2021 by Edouard Luna MD at [facility] Left: Acetabulum [employer] 03/08/2023 [id number] / / [id number] Hip Centralizer 10mm Implant Cemented Versys 16b Bx/1ea - [id number] Implanted:Qty: 1 on 03/28/2021 by Edouard Luna MD at [facility] Left: Acetabulum SHAWN / DIV OF [employer] 08/08/2030 [id number] / / [id number] Hip Insert 3.0mm Femoral Bio Cuevas Ii Endo Titanium Alloy Taper Plus - [id number] Implanted:Qty: 1 on 03/28/2021 by Edouard Luna MD at [facility] Left: Acetabulum [employer] 01/26/2031 [id number] / / [id number] Procedures Procedure Name Priority Date/Time Associated Diagnosis Comments AMB REFERRAL TO [facility] PHYSICAL THERAPY Routine 01/05/2025 6:16 PM EDT [...] Health Maintenance Results * Ambulatory referral to [facility] Physical Therapy (01/05/2025 6:16 PM EDT) Other us Alison Evans MD AMB [facility] REFERRALS Final R esult * ENDOSCOPY, COLON (12/08/2024 11:20 AM EDT) Narrative Transcriptions Jeanine Santizo MD - 12/08/2024 11:20 AM EDT [facility] Patient Name: Saji Julian Attending MD:: JEANINE SANTIZO MD, Procedure Date: 12/08/2024 11:20 AM Date of : 1965 Age: 59 Admit Type: Outpatient Gender: Female Room: [place] [address] Referring MD: Suzanne De Leon Exam Type: [...] 11:20 AM Procedure Code(s): --- Professional --- 44364, Colonoscopy, flexible; with removal of tumor(s), polyp(s), or other lesion(s) by snare technique --- Technical --- 43837, Colonoscopy, flexible; with removal of tumor(s), polyp(s), or other lesion(s) by snare technique CPT copyright 2021 [employer]. All rights reserved. The codes documented in this report are preliminary and upon door maker reviewmay be revised to meet current compliance requirements. Procedure Date: 12/08/2024 11:20:[address] [place] [address] Suzanne De Leon ANIMAL DAMAGE CONTROL AGENT GI PROCEDURE ORDERABLES Final Result * BI [...] be notified of the results and recommendations. [facility] ANIMAL DAMAGE CONTROL AGENT IMG MG EXAMS Final Result * (ABNORMAL) Lipid panel (12/03/2023 10:10 AM EDT) HDL 44 mg/dL [facility] Comment: Interpretation <40 mg/dL: Low HDL cholesterol (major risk factor for CHD) Greater than or equal to 60 mg/dL: High HDL cholesterol ( negative risk factor for CHD) HDL - cholesterol is affected by a number of factors, e.g. smoking, excerise, hormones, sex and age. CHOLESTEROL 278(H) 0 - 240 mg/dL [facility] TRIGLYCERIDES 222(H) 30 - 160 mg/dL [facility] LDL 190(H) 50 - 129 mg/dL [facility] Comment: LDL levels in terms of risk for coronary heart disease: <100 mg/dL: Optimal 100-129 mg/dL: Near or above optimal 130-159 mg/dL: Borderline high 160-189 mg/dL: High >190 mg/dL: Very High CARDIAC RISK RATIO 6.3(H) 3.3 - 4.4 C [facility] Blood 12/03/2023 10:1 0 AM EDT 12/03/2023 10:20 AM EDT Suzanne Vann [facility] LAB BLOOD ORDERABLES Final Re sult Performing Organization Address City/[facility]/ZIP Co de Phone Number [address] [address] * TSH with reflex (11/26/2023 11:36 AM EDT) TSH 0.85 0.27 - 4.20 uIU/mL [facility] Blood 11/26/2023 11:3 6 AM EDT 11/26/2023 11:[address] [facility] LAB BLOOD ORDERABLES Final Re sult Performing Organization Address [facility] Co de Phone Number [address] [address] * Pap Test (10/08/2023 12:00 AM EDT) 10/08/2023 10/09/2023 9:3 6 AM EDT Narrative SEE NARRATIVE - 10/15/2023 11:11 AM EDT [address] [address] Communication Instructor: Shonda Cruz MD ENERGY CONSERVATION ENGINEER Cytology Report FINAL DIAGNOSIS A. PAP SMEAR [...] 59, 66, 68) Note: Testing performed by [employer] Onclarity HR-HPV analysis. Clinical correlation is advised. This HPV test was performed at [facility], [address] [place] [address]. This test has been FDA approved for both SurePath and ThinPrep cervical cytology specimens. The accuracy and precision of this test for all other specimen sources has been verified in the Cytopathology Laboratory of the [facility] and has not been cleared or approved by the U.S. Food and Drug Administration. Clinical correlation is advised. CLINICAL HISTORY Date of Last Menstrual Period: Not Provided Menstrual History: Post Menopausal Other Clinical Conditions: Screening Pap SPECIMEN SOURCE A: PAP SMEAR (SUREPATH) CE Patient Name: SAJI JULIAN : 1965 (Age: 58) Sex: F Institution: [facility] Location: [facility] Date of Collection: 10/08/2023 Date of Reported: 10/15/2023 11:11 Results to: Suzanne De Leon MSN Suzanne De Leon ANIMAL DAMAGE CONTROL AGENT CYTOLOGY ORDERABLES Final Res ult SEE NARRATIVE [...] bone mineral density was calculated at 0.636 gm/zr4ghga a T- score of -1.9 falling within [...] in bone density since 2008. Brigida Elmore WRAPPER STEMMER HAND IMG BD BONE DENSITY DEXA F inal Result * Hepatitis C antibody, qualitative (11/11/2018 11:21 AM EDT) HCV Negative Negative [facility] Comment: This is a screening test and should be confirmed with molecular testing Blood 11/11/2018 11:2 1 AM EDT 11/11/2018 11:25 AM EDT Saeed Alvarez MD LAB BLOOD ORDERABLES Donna l Result [facility] [address] [place] [address] from Last 3 Months or Most Recently Relevant to Health Maintenance Insurance MEDICARE PART A & B [facility] MEDICARE PART A & B Member Subscriber Plan / Payer (Ef fective 1984-Present) Name:Saji Julian Member ID:[id number] Relation to Subscriber:Self Name:Saji Julian Subscriber ID:[id number] Payer ID:[id number] Group ID:Not on file Type:Medicare Address: [employer] [address] [place] [phone] [facility] B Member Subscriber Plan / Payer (Ef fective 1984-) Name:Saji Julian Member ID:[id number] Relation to Subscriber:Self Name:Saji Julian Subscriber ID:[id number] Payer ID:[id number] Group ID:Not on file Type:Medicare Address: [facility] Lastline [facility] [employer] [facility] [address] [place], [place] [phone] [place] MEDICARE PART A & B [facility] [place]IC[facility] PART A [place] [phone] MEDICARE PART A & B [facility] PART [facility] & B [facility] PART A & B [facility] Advance Directives For more information, please contact: [phone] (9AM - 5PM [facility], Saturday-Saturday) Documents on File Type Date Recorded Patient Medical Record Librarians Teacher Expl anation Healthcare Proxy 04/04/2021 9:10 AM Durable Power of Director Of Sports Performance 04/04/2021 9:10 AM * Full Code (Latest Code Status on File) Date Activated Date Inactivated Comments 03/28/2021 7:34 PM Question Answer Comments Code Status Confirmed With: Patient * Full Code Date Activated Date Inactivated Comments 03/28/2021 7:30 PM 03/28/2021 7:34 PM Question Answer Comments Code Status Confirmed With: PatientSurrogate Code Discussion Comments: penitentiary staff Healthcare Agents on File Name Relationship Healthcare Agent [facility] Communication Afua Alvarenga Sister .Primary Health Care Agent (Proxy form on file) Care Teams Patrol Inspector Relationship Specialty Start Date End Date Suzanne De Leon FNP [address] [facility], [facility] [address] [place] [address] PCP - General Family Medicine 07/20/21 Suzanne De Leon FNP 234 [facility] [address] [place] [address] [email or web address] Insurance Assigned Provider 10/11/24 Additional Source Comments The information contained in this document represents components of the legal health record. It is not the complete legal health record.[facility]
--- OUTSIDE RECORDS SUMMARY | 2025-04-01 17:31 | XMS_ITS | Encounter Summary ---
Author Organization [facility] Address [address] [place] [address] Phone Care Team Providers Care Systems Integration Engineer Name Role Phone Saeed Alvarez MD Unavailable Saeed Alvarez MD Primary Care Provider [phone] Suzanne De Leon [facility] Primary Care Provider [phone] Spencer Chamorro MD Unavailable Suzanne De Leon [facility] Unavailable Encounter Details Date Type Department Care Team (Late st Contact Info) Description 07/31/2017 Ancillary Orders [facility] Medicine [address] [place] [address] Saeed Alvarez MD [address] [facility] [place] [id number] [email or web address] Breast [email or web address] Social History Tobacco Use Types [...] Contact Info) Description 11/19/2024 Procedure Pass [address] [address] 06/16/2025 10:30 AM EST Appointment [address] [address] [place] Suzanne Vann, [facility] [address] [facility], [address] [place] [address] [email or web address] 08/03/2025 11:15 AM EST Appointment [facility] Density [address] [address] Suzanne De Leon Soo, [address], [facility] [address] [place] [address] documented as of this encounter Results * [...] lowers the sensitivity of mammography. POS - [id number] Narrative 10/15/2017 11:05 AM EDT Full-field digital [...] whichlowers the sensitivity of mammography. POS - [id number] Saeed Alvarez MD IMG MG EXAMS Final [...] documented as of this encounter Care Teams Systems Integration Engineer Relationship Specialty Start Date End Date Saeed Alvarez MD [address] [place] [address] [address] [place] [phone] [email or web address] PCP - General 05/02/17 07/19/21 Suzanne De Leon FNP [address] [place] [address], [address] [place] [address] [email or web address] PCP - General Family Medicine 07/20/21 Saeed Alvarez MD [address] [place] [address] [address] [place] [phone] [email or web address] Insurance Assigned Provider 09/10/15 Spencer Chamorro MD [address] [place] [address], [address] [place] [address] [email or web address] Insurance Assigned Provider 10/13/22 Suzanne De Leon FNP [address] [place] [address], [address] [place] [address] [email or web address] Insurance Assigned Provider 10/11/24 documented as of this encounter Additional Source Comments The information contained in this document represents components of the legal health record. It is not the complete legal health record.[facility]
--- OUTSIDE RECORDS SUMMARY | 2025-04-01 17:31 | XMS_ITS | Encounter Summary ---
Author Organization [facility] Address [address] [place] [address] Phone Care Team Providers Care Rock Crushing Machine Operator Name Role Phone Suzanne De Leon [facility] Primary Care Provider [phone] Suzanne De Leon TOURS CAPTAIN Unavailable [phone] Encounter Details Date Type Department Care Team (Late st Contact Info) Description 12/08/2024 Procedure Pass [facility] Endoscopy Admitting Dept Virtual Department [address] [place] [address] Social History Tobacco Use Types Packs/Day Years [...] st Contact Info) Description 11/19/2024 Procedure Pass [address] [address] 06/16/2025 10:30 AM EST Appointment [address] [address] Suzanne De Leon FNP [address] [place] [address] 08/03/2025 11:15 AM EST Appointment [facility] Density [address] [address] Suzanne De Leon FNP [address] [address] [email or web address] documented as of this encounter Visit Diagnoses Not on filedocumented in this encounter Additional Health Concerns Assessment Noted Time PHQ-2 Depression Total Score: 0 11/18/19 25 11:54 AM EDT documented as of this encounter Care Teams Rock Crushing Machine Operator Relationship Specialty Start Date End Date Suzanne De Leon FNP [address] [place] [address] [email or web address] PCP - General Family Medicine 07/20/21 Suzanne De Leon FNP [address] [place] [address] [address] [place] [address] [email or web address] Insurance Assigned Provider 10/11/24 documented as of this encounter Additional Source Comments The information contained in this document represents components of the legal health record. It is not the complete legal health record.[facility]
--- OUTSIDE RECORDS SUMMARY | 2025-04-01 17:31 | XMS_ITS | Encounter Summary ---
Author Organization [facility] Address [address] [place] [address] Phone Care Team Providers Care Wiring Technician Name Role Phone Saeed Alvarez MD Unavailable Saeed Alvarez MD Primary Care Provider [phone] Suzanne De Leon [facility] Primary Care Provider [phone] Spencer Chamorro MD Unavailable Suzanne De Leon [facility] Unavailable Encounter Details Date Type Department Care Team (Late st Contact Info) Description 06/02/2021 Procedure Pass [facility], [facility] [address] [place] [address] Social History Tobacco Use Types Packs/Day Years [...] Contact Info) Description 11/19/2024 Procedure Pass [address] [address] 06/16/2025 10:30 AM EST Appointment [address] [address] Suzanne De Leon [facility] 234 [facility] [address] [place] [address] [email or web address] 08/03/2025 11:15 AM EST Appointment [facility] Density [address] [address] Suzanne De Leon FNP [address] [address] [email or web address] documented as of this encounter Visit Diagnoses Not on filedocumented in this encounter Additional Health Concerns Assessment Noted Time PHQ-2 Depression Total Score: 1 06/20/20 20 11:09 AM EST documented as of this encounter Care Teams Wiring Technician Relationship Specialty Start Date End Date Saeed Alvraez MD [address] [place] [address] [address] [place] [phone] [email or web address] PCP - General 05/02/17 07/19/21 Suzanne De Leon FNP [address] [place] [address] [place] [address] [email or web address] PCP - General Family Medicine 07/20/21 Saeed Alvarez MD [address] [place] [address] [address] [place] [phone] [email or web address] Insurance Assigned Provider 09/10/15 Spencer Chamorro MD [address] [place] [address] [address] [place] [address] [email or web address] Insurance Assigned Provider 10/13/22 Suzanne De Leon FNP [address] [place] [address] 7 [place] [address] [email or web address] Insurance Assigned Provider 10/11/24 documented as of this encounter Additional Source Comments The information contained in this document represents components of the legal health record. It is not the complete legal health record.[facility]
--- OUTSIDE RECORDS SUMMARY | 2025-04-01 17:31 | XMS_ITS | Encounter Summary ---
Author Organization [facility] Address [address] [place] [address] Phone Care Team Providers Care Heating And Cooling Technician Name Role Phone Saeed Alvarez MD Unavailable Saeed Alvarez MD Primary Care Provider [phone] [facility] Primary Care Provider [phone] Spencer Chamorro MD Unavailable Suzanne De Leon [facility] Unavailable [phone] Encounter Details Date Type Department Care Team (Late st Contact Info) Description 08/05/2019 Ancillary Orders [facility] Medicine [address] [place] [address] Saeed Alvarez MD 234 [facility]. [address] [place] [id number] [email or web address] Social History Tobacco Use Types Packs/Day Years [...] Contact Info) Description 11/19/2024 Procedure Pass [address] [address] 06/16/2025 10:30 AM EST Appointment [address] [address] Suzanne De Leon FNP 234 [facility], [facility] 7 [place] [address] [email or web address] 08/03/2025 11:15 AM EST Appointment [facility] Bone Density [address] [address] Suzanne De Leon FNP 234 [facility], [facility] 7 [place] [address] [email or web address] documented as of this encounter Visit Diagnoses Not on filedocumented in this encounter Additional Health Concerns Infection Onset Date Last Indicated Resolved Time CoV-Exposed Comment:Recent close contact 05/13/2020 05/13/2020 05/27/2020 1:25 AM EST CoV-Exposed Comment:Recent close contact documented in the COVID-19 PCR/PRO order 02/01/2021 02/02/2021 02/26/2021 1:23 AM E DT documented as of this encounter Care Teams Heating And Cooling Technician Relationship Specialty Start Date End Date Saeed Alvarez MD [address] [place] [address]. [address] [place], [place] [phone] [email or web address] PCP - General 05/02/17 07/19/21 Suzanne De Leon FNP [address] [place] [address] 7 [place] [address] [email or web address] PCP - General Family Medicine 07/20/21 Saeed Alvarez MD [address] [place] [address] [address] [place] [phone] [email or web address] Insurance Assigned Provider 09/10/15 Spencer Chamorro MD [address] [place] [address], [address] [place], [place] [address] [email or web address] Insurance Assigned Provider 10/13/22 Suzanne De Leon FNP [address] [place] [address], [address] [place] [address] [email or web address] Insurance Assigned Provider 10/11/24 documented as of this encounter Additional Source Comments The information contained in this document represents components of the legal health record. It is not the complete legal health record.[facility]
== END 2025-04-01 12:44 | disposition home or self-care (01) ==
LOC: HO.HOSX 12:43
PROVIDERS: Visit Provider Physician Assistant
DX: S72.92XD Unspecified fracture of left femur, subsequent encounter for closed fracture with routine healing (principal); X58.XXXD Exposure to other specified factors, subsequent encounter
CPT/HCPCS: 99212

== ENCOUNTER 2025-04-01 14:10 | Outpatient (AMB) | payer MEDICARE, MEDICAID, SELFPAY ==
--- NOTE | 2025-04-01 14:22 | A.OFFVIS_ITS ---
<Statement entered by Addy Buitrago MD - 04/08/25 09:15> I had a long discussion with the patient's caregiver. This is a very difficult problem. Agnes has a distal femoral shaft fracture. She is contracted in hip flexion and this deforms the fracture. She has minimal pain however. We have tried bracing/splinting several times but this is only putting her skin and maribel colt as she is completely noncompliant and not in control of her left leg contracture or position and ultimately the splints have altered position drastically and do threatened the integrity of her skin. Given her bone quality and compliance issues and her nonambulatory status I am extremely hesitant to operate on her. We do need to be cautious of her skin and her neurovascular status. As of now there is a small area of swelling over the distal femur but the skin is intact. Distally she is neurovascularly intact and her skin is clean and dry and void of all pressure sores. We will need to check her regularly to make sure that her skin remains intact and that this fracture heals. If this does heal in a reasonable position it will be acceptable given that she does not walk and is insensate in his limb. I explained this to the patient and to her caregiver and to her healthcare proxy. Intake Visit Reasons: F/U - Left Femur Fracture 03/03/25 per TM Intake Note: Radha is a 60 year old woman who presents today in a stretcher for a splint change status post left femur fracture, DOI 03/03/25. Allergies apple Allergy (Verified 03/25/25 11:37) Unknown lactose Allergy (Verified 03/25/25 11:37) Gastrointestinal Upset levofloxacin (From Levaquin) Allergy (Verified 03/25/25 11:37) Unknown peanut Allergy (Verified 03/25/25 11:37) Unknown Penicillins Allergy (Verified 03/25/25 11:37) Unknown pork derived (porcine) Allergy (Verified 03/25/25 11:37) Unknown Medication List - Last Reconciled 04/01/25 by Rolando Don PA-C acetaminophen 650 mg PO Q6H PRN alendronate 70 mg PO MO calcium 500 mg PO DAILY cetirizine (Zyrtec) 10 mg PO DAILY cholecalciferol (vitamin D3) 50 mcg PO DAILY cyclobenzaprine 5 mg PO TID PRN fluoxetine 10 mg PO DAILY fluoxetine 20 mg PO DAILY ibuprofen 400 mg PO BID levetiracetam (Keppra) 750 mg PO BID levothyroxine (Synthroid) 100 mcg PO SUTUWEFRSA levothyroxine (Synthroid) 50 mcg PO MOTH loperamide (Imodium A-D) 2 mg PO Q OTHER DAY magnesium aspart,citrate,oxide mg PO mirtazapine 7.5 mg PO BEDTIME multivitamin 1 tab PO DAILY omeprazole 40 mg PO BEDTIME oxycodone 5 mg PO Q6H PRN HPI HPI F/U - Left Femur Fracture 03/03/25 per TM: Details: 60-year-old female returns to the office today for a follow-up left femur fracture. Date of injury is 03/03/2025. The patient is coming in today because her splint and cast are causing discomfort and no longer serving a purpose of immobilization. Prior to the patient's appointment I was able to speak with the patient's sister Afua on the phone who explained the patient was experiencing increased discomfort along the fracture site. [facility] Medical History CVA (cerebral vascular accident) Social History (Updated 03/25/25 @ 11:38 by Yuni Luque [facility]) Current occupational status: disabled Review of Systems Const All systems reviewed & are unremarkable except as noted in HPI and below Physical Exam Const General: cooperative and no acute distress Orientation/consciousness: patient oriented x3 Resp Effort & Inspection: normal respiratory effort and able to speak in complete sentences Cardio Peripheral pulses: Peripheral pulses 2+ throughout Neuro General: patient oriented x3 Extrem Other: Left lower extremity skin is intact. She does have a pressure sore on the left heel. This is not open or oozing. She contracts her leg into a flexed position at the knee and hip. She is insensate to touch. Pulses present. Assessment & Plan Assessment & Plan (1) Fracture of femur: Code(s): S72.90XA - Unspecified fracture of unspecified femur, initial encounter for closed fracture Category: Medical Plan: Dr. Buitrago was available to see the patient with me today. The splint and casting material was removed. Since the patient is not a candidate for surgical intervention as previously discussed we will use an Henry wrap to help with some swelling and continue with skin care. The rehab facility should be performing skin checks routinely. There is any skin breakdown she needs to see our office immediately. Otherwise we will see her back in 1 week for another check. Coding Level of Care Code Global (62479) Diagnoses Fracture of femur S72.90XA
== END 2025-04-01 15:40 | disposition home or self-care (01) ==
LOC: HO.HOS 14:11
PROVIDERS: Visit Provider Physician Assistant
DX: S72.90XA Unspecified fracture of unspecified femur, initial encounter for closed fracture (principal)
CPT/HCPCS: 99024

== ENCOUNTER 2025-04-08 10:30 | Outpatient (AMB) | payer MEDICARE, MEDICAID, SELFPAY ==
--- NOTE | 2025-04-08 10:45 | A.OFFVIS_ITS ---
Intake Visit Reasons: F/U - Left Femur Fracture 03/03/25 per TM Intake Note: Radha is a 60 year old woman who presents today in a stretcher for a follow up of left femur fracture, DOI 03/03/25. Allergies apple Allergy (Verified 04/08/25 10:46) Unknown lactose Allergy (Verified 04/08/25 10:46) Gastrointestinal Upset levofloxacin (From Levaquin) Allergy (Verified 04/08/25 10:46) Unknown peanut Allergy (Verified 04/08/25 10:46) Unknown Penicillins Allergy (Verified 04/08/25 10:46) Unknown pork derived (porcine) Allergy (Verified 04/08/25 10:46) Unknown HPI HPI F/U - Left Femur Fracture 03/03/25 per TM: Details: 60-year-old female returns to the office today left femur fracture date of injury 03/03/2025. The patient comes in today on a stretcher and is in no apparent distress. [facility] Medical History CVA (cerebral vascular accident) Social History (Updated 03/25/25 @ 11:38 by CHELSIE Byrd) Current occupational status: disabled Review of Systems Const All systems reviewed & are unremarkable except as noted in HPI and below Physical Exam Const General: cooperative and no acute distress Orientation/consciousness: patient oriented x3 Resp Effort & Inspection: normal respiratory effort and able to speak in complete sentences Cardio Peripheral pulses: Peripheral pulses 2+ throughout Neuro General: patient oriented x3 Extrem Other: Left lower extremity skin is intact. Swelling along the distal femur is resolving and there is no skin breakdown over the fracture site. She does have a pressure sore on the left heel. This is not open or oozing. She contracts her leg into a flexed position at the knee and hip. She is insensate to touch. Pulses present. Assessment & Plan Assessment & Plan (1) Fracture of femur: Code(s): S72.90XA - Unspecified fracture of unspecified femur, initial encounter for closed fracture Category: Medical Plan: We do need to continue with caution of her skin and her neurovascular status. We will continue checking her regularly to make sure that her skin remains intact and that this fracture heals. If this does heal in a reasonable position it will be acceptable given that she does not walk and is insensate in his limb. This has been explained to the patient and to her caregiver and to her healthcare proxy. I gave instruction for the rehab facility to check her skin routinely and if there is any concerns such as irritation skin breakdown tenting swelling redness or any other signs of skin breakdown. they should contact us immediately. Otherwise the patient will continue with nonweightbearing and see us back in 2 weeks with x-rays, sooner if needed. Coding Level of Care Code Global (90472) Diagnoses Fracture of femur S72.90XA
--- OUTSIDE RECORDS SUMMARY | 2025-04-08 12:13 | XMS_ITS | Encounter Summary ---
Author Organization [facility] Address [address] [place] [address] Phone Care Team Providers Care Photolith Operator Name Role Phone Saeed Alvarez MD Unavailable Suzanne De Leon [facility] Primary Care Provider Spencer Chamorro MD Unavailable Suzanne De Leon [facility] Unavailable [phone] Reason for Visit * Reason Onset Date Comments orders 03/15/2022 HCP orders Encounter Details Date Type Department Care Team ([facility] st Contact Info) Description 03/15/2022 Telephone [facility] [address] [place] [address] [address] Ward, [facility] [address] [place] [address] orders (HCP orders) Social History Tobacco Use [...] Any questions she can be reached at [phone] or [phone] documented in this encounter Plan of Treatment Upcoming Encounters Date Type Department Care Team (Late st Contact Info) Description 11/19/2024 Procedure Pass [address] [address] 06/16/2025 10:30 AM EST Appointment [address] [address] Suzanne De Leon FNP [address] [place] [address], [address] [place] [address] 08/03/2025 11:15 AM EST Appointment [facility] [address] [place] [address] Suzanne De LeonDINAH 234 [facility], [address] [place] [address] [email or web address] documented as of this encounter Visit Diagnoses Diagnosis Incontinence of feces with fecal urgency- Primary documented in this encounter Additional Health Concerns Assessment Noted Time PHQ-2 Depression Total Score: 1 06/20/20 20 11:09 AM EST documented as of this encounter Care Teams Photolith Operator Relationship Specialty Start Date End Date Suzanne De LeonDINAH [address] [place] [address], [facility] 7 [place] [address] [email or web address] PCP - General Family Medicine 07/20/21 Saeed Alvarez MD [address] [place] [address] [address] [place] [phone] [email or web address] Insurance Assigned Provider 09/10/15 Spencer Chamorro MD [address] [place] [address], [address] [place] [address] Insurance Assigned Provider 10/13/22 Suzanne De Leon DINAH Vann [address] [place] [address] [address] [place] [address] [email or web address] Insurance Assigned Provider 10/11/24 documented as of this encounter Additional Source Comments The information contained in this document represents components of the legal health record. It is not the complete legal health record.[facility]
--- OUTSIDE RECORDS SUMMARY | 2025-04-08 12:13 | XMS_ITS | Encounter Summary ---
Author Organization [facility] Address [address] [place] [address] Phone Care Team Providers Care Upper Cutter Name Role Phone Saeed Alvarez MD Unavailable Saeed Alvarez MD Primary Care Provider [phone] [facility] Primary Care Provider [phone] Spencer Chamorro MD Unavailable Suzanne De Leon [facility] Unavailable Encounter Details Date Type Department Care Team (Late st Contact Info) Description 08/11/2018 Ancillary Orders [facility] Medicine 234 [place] [address] Saeed Alvarez MD 234 [facility]. [address] [place] [id number] [email or web address] Breast screening Social History Tobacco Use [...] Contact Info) Description 11/19/2024 Procedure Pass [address] [address] 06/16/2025 10:30 AM EST Appointment [address] [address] [place] Suzanne Vann, [facility] 234 [facility], [address] [place] [address] 08/03/2025 11:15 AM EST Appointment [facility], Bone Density [address] [address] Suzanne De Leon Soo, [facility] 234 [facility], [address] [place] [address] documented as of this encounter Results * [...] which lowers the sensitivity of mammography. POS -[id number] Narrative 10/22/2018 8:07 AM EDT Bilateral full-field [...] appearance whichlowers the sensitivity of mammography. POS -[id number] Saeed Alvarez MD IMG MG EXAMS Final [...] documented as of this encounter Care Teams Upper Cutter Relationship Specialty Start Date End Date Saeed Alvarez MD [address] [place], [place] [address] [place] [phone] [email or web address] PCP - General 05/02/17 07/19/21 Suzanne De Leon FNP [address] [place] [address], [address] [place] [address] [email or web address] PCP - General Family Medicine 07/20/21 Saeed Alvarez MD [address] [place] [address] [address] [place] [phone] [email or web address] Insurance Assigned Provider 09/10/15 Spencer Chamorro MD [address] [place] [address], [address] [place], [place] [address] [email or web address] Insurance Assigned Provider 10/13/22 Suzanne De Leon FNP [address] [place] [address], [address] [place] [address] [email or web address] Insurance Assigned Provider 10/11/24 documented as of this encounter Additional Source Comments The information contained in this document represents components of the legal health record. It is not the complete legal health record.[facility]
--- OUTSIDE RECORDS SUMMARY | 2025-04-08 12:13 | XMS_ITS | Encounter Summary ---
Author Organization [facility] Address [address] [place] [address] Phone Care Team Providers Care Supervisor Contingents Name Role Phone Saeed Alvarez MD Unavailable Saeed Alvarez MD Primary Care Provider [phone] Suzanne De Leon [facility] Primary Care Provider [phone] Spencer Chamorro MD Unavailable Suzanne De Leon [facility] Unavailable Encounter Details Date Type Department Care Team (Late st Contact Info) Description 07/31/2017 Ancillary Orders [facility] Medicine [address] [facility] [address] Saeed Alvarez MD 234 [facility]. [address] [place] [phone] [email or web address] Breast screening Social History Tobacco Use Types [...] st Contact Info) Description 11/19/2024 Procedure Pass [address] [address] 06/16/2025 10:30 AM EST Appointment [address] [address] [place] Suzanne Vann, [facility] 234 [facility], [address] [place] [address] 08/03/2025 11:15 AM EST Appointment [facility], Bone Density [address] [address] Suzanne De Leon Soo, [address], [facility] 7 [place] [address] documented as of this encounter Results * [...] lowers the sensitivity of mammography. POS - [id number] Narrative 10/15/2017 11:05 AM EDT Full-field digital [...] whichlowers the sensitivity of mammography. POS - [id number] Saeed Alvarez MD IMG MG EXAMS Final [...] as of this encounter Care Teams Supervisor Contingents Relationship Specialty Start Date End Date Saeed Alvarez MD [address] [place] [address] [address] [place] [phone] [email or web address] PCP - General 05/02/17 07/19/21 Suzanne De Leon FNP [address] [place] [address], [address] [place] [address] [email or web address] PCP - General Family Medicine 07/20/21 Saeed Alvarez MD [address] [place] [address] [address] [place] [address] [email or web address] Insurance Assigned Provider 09/10/15 Spencer Chamorro MD [address] [place] [address], [address] [place] [address] [email or web address] Insurance Assigned Provider 10/13/22 Suzanne De Leon FNP [address] [place] [address], [address] [place] [address] [email or web address] Insurance Assigned Provider 10/11/24 documented as of this encounter Additional Source Comments The information contained in this document represents components of the legal health record. It is not the complete legal health record.[facility]
--- OUTSIDE RECORDS SUMMARY | 2025-04-08 12:13 | XMS_ITS | Encounter Summary ---
Author Organization [facility] Address [address] [place] [address] Phone Care Team Providers Care Creel Selector Name Role Phone Suzanne De Leon [facility] Primary Care Provider [phone] Suzanne De Leon [facility] Unavailable [phone] Encounter Details Date Type Department Care Team (Late st Contact Info) Description 12/08/2024 Procedure Pass [facility] Admitting Dept Virtual Department [address] [place] [address] Social History Tobacco Use Types Packs/Day Years [...] Contact Info) Description 11/19/2024 Procedure Pass [address] [address] 06/16/2025 10:30 AM EST Appointment [address] [address] Suzanne De Leon FNP [address] [place] [address] 08/03/2025 11:15 AM EST Appointment [facility] Bone Density [address] [address] Suzanne De Leon FNP [address] [address] documented as of this encounter Visit Diagnoses Not on filedocumented in this encounter Additional Health Concerns Assessment Noted Time PHQ-2 Depression Total Score: 0 11/18/19 25 11:54 AM EDT documented as of this encounter Care Teams Creel Selector Relationship Specialty Start Date End Date Suzanne De Leon FNP [address] [place] [address] [email or web address] PCP - General Family Medicine 07/20/21 Suzanne De Leon FNP [address] [place] [address] 7 [place] [address] [email or web address] Insurance Assigned Provider 10/11/24 documented as of this encounter Additional Source Comments The information contained in this document represents components of the legal health record. It is not the complete legal health record.[facility]
--- OUTSIDE RECORDS SUMMARY | 2025-04-08 12:13 | XMS_ITS | Encounter Summary ---
Author Organization [facility] Address [address] [place] [address] Phone Care Team Providers Care Outside Sales Inspector Name Role Phone Saeed Alvarez MD Unavailable Suzanne De LeonP Primary Care Provider [phone] Spencer Chamorro MD Unavailable Suzanne De Leon Unavailable Encounter Details Date Type Department Care Team (Latest Contact Info) Description 09/06/2022 Transcribe Orders Virtual Department 30 [place] [address] Suzanne De Leon FNP [address] [place] [address] 7 [place] [address] [email or web address] Breast screening (Primary Dx) Social History Tobacco [...] Contact Info) Description 11/19/2024 Procedure Pass [address] [address] 06/16/2025 10:30 AM EST Appointment [address] [address] Suzanne De Leon FNP [address] [facility], [facility] 7 [place] [address] 08/03/2025 11:15 AM EST Appointment [facility] Bone Density [address] [address] Suzanne De Leon FNP [address] [place] [address] 7 [place] [address] Scheduled Orders Name Type Priority Associated Diagnoses Orde r Schedule Mammogram Screening (Bilateral) Imaging Routine Breast screening Expected: 09/06/2022, Expires: 03/09/2025 documented as of this encounter Visit Diagnoses Diagnosis Breast screening- Primary Breast screening, unspecified documented in this encounter Additional Health Concerns Assessment Noted Time PHQ-2 Depression Total Score: 1 06/20/20 20 11:09 AM EST documented as of this encounter Care Teams Outside Sales Inspector Relationship Specialty Start Date End Date Suzanne De Leon FNP [address] [place] [address] [place] [address] PCP - General Family Medicine 07/20/21 Saeed Alvarez MD [address] [place] [address] [address] [place] [phone] [email or web address] Insurance Assigned Provider 09/10/15 Spencer Chamorro MD [address] [facility], [address] [place] [address] [email or web address] Insurance Assigned Provider 10/13/22 Suzanne De Leon FNP [address] [facility], [address] [place] [address] [email or web address] Insurance Assigned Provider 10/11/24 documented as of this encounter Additional Source Comments The information contained in this document represents components of the legal health record. It is not the complete legal health record.[facility]
--- OUTSIDE RECORDS SUMMARY | 2025-04-08 12:13 | XMS_ITS | Encounter Summary ---
Author Organization [facility] Address [address] [place] [address] Phone Care Team Providers Care Broach Operator Name Role Phone Saeed Alvarez MD Unavailable Saeed Alvarez MD Primary Care Provider [phone] [facility] Leon [facility] Primary Care Provider Spencer Chamorro MD Unavailable Suzanne De Leon [facility] Unavailable Encounter Details Date Type Department Care Team (Late st Contact Info) Description 06/02/2021 Procedure Pass [facility], [facility] 30 [place] [address] Social History Tobacco Use Types Packs/Day Years [...] st Contact Info) Description 11/19/2024 Procedure Pass [address] [address] 06/16/2025 10:30 AM EST Appointment [address] [address] Suzanne De Leon [facility] 234 [facility] 7 [place] [address] [email or web address] 08/03/2025 11:15 AM EST Appointment [facility] Bone Density [address] [address] Suzanne De Leon FNP [address] [address] [email or web address] documented as of this encounter Visit Diagnoses Not on filedocumented in this encounter Additional Health Concerns Assessment Noted Time PHQ-2 Depression Total Score: 1 06/20/20 20 11:09 AM EST documented as of this encounter Care Teams Broach Operator Relationship Specialty Start Date End Date Saeed Alvarez MD [address] [place] [address] [address] [place] [phone] [email or web address] PCP - General 05/02/17 07/19/21 Suzanne De Leon FNP [address] [place] [address] 7 [place] [address] [email or web address] PCP - General Family Medicine 07/20/21 Saeed Alvarez MD [address] [place] [address] [address] [place] [phone] [email or web address] Insurance Assigned Provider 09/10/15 Spencer Chamorro MD [address] [place] [address] 7 [place] [address] [email or web address] Insurance Assigned Provider 10/13/22 Suzanne De Leon FNP [address] [place] [address] 7 [place] [address] [email or web address] Insurance Assigned Provider 10/11/24 documented as of this encounter Additional Source Comments The information contained in this document represents components of the legal health record. It is not the complete legal health record.[facility]
--- OUTSIDE RECORDS SUMMARY | 2025-04-08 12:13 | XMS_ITS | Encounter Summary ---
Author Organization [facility] Address [address] [place] [address] Phone Care Team Providers Care Driving Instructor Name Role Phone Suzanne De Leon [facility] Primary Care Provider [phone] Suzanne De Leon [facility] Unavailable [phone] Encounter Details Date Type Department Care Team (Late st Contact Info) Description 10/08/2023 Procedure Pass [facility], [address] [address] Social History Tobacco Use Types Packs/Day Years [...] st Contact Info) Description 11/19/2024 Procedure Pass [address] [address] 06/16/2025 10:30 AM EST Appointment [address] [address] Suzanne De Leon FNP [address] [place] [address] [email or web address] 08/03/2025 11:15 AM EST Appointment [address] [address] Suzanne De Leon FNP [address] [place] [address] [email or web address] documented as of this encounter Visit Diagnoses Not on filedocumented in this encounter Additional Health Concerns Assessment Noted Time PHQ-2 Depression Total Score: 0 10/08/19 24 11:24 AM EDT documented as of this encounter Care Teams Driving Instructor Relationship Specialty Start Date End Date Suzanne De Leon FNP [address] [place] [address] [email or web address] PCP - General Family Medicine 07/20/21 Suzanne De Leon FNP [address] [place] [address] 7 [place] [address] [email or web address] Insurance Assigned Provider 10/11/24 documented as of this encounter Additional Source Comments The information contained in this document represents components of the legal health record. It is not the complete legal health record.[facility]
--- OUTSIDE RECORDS SUMMARY | 2025-04-08 12:13 | XMS_ITS | Encounter Summary ---
Author Organization [facility] Address [email or web address] [place] [address] Phone Care Team Providers Care Clinical Informatics Strategist Name Role Phone Saeed Alvarez MD Unavailable Saeed Alvarez MD Primary Care Provider [phone] Suzanne De Leon [facility] Primary Care Provider Spencer Chamorro MD Unavailable Suzanne De Leon [facility] Unavailable [phone] Encounter Details Date Type Department Care Team (Late st Contact Info) Description 08/05/2019 Ancillary Orders [facility] Medicine 234 [place] [address] Saeed Alvarez MD 234 [facility]. [address] [place] [id number] [email or web address] Social History Tobacco Use Types Packs/Day [...] Contact Info) Description 11/19/2024 Procedure Pass [address] [address] 06/16/2025 10:30 AM EST Appointment [address] [address] Suzanne De Leon FNP 234 [facility], [facility] 7 [place] [address] [email or web address] 08/03/2025 11:15 AM EST Appointment [facility] Bone Density [address] [address] Suzanne De Leon FNP 234 [facility], [facility] 7 [place] [address] [email or web address] documented as of this encounter Visit Diagnoses Not on filedocumented in this encounter Additional Health Concerns Infection Onset Date Last Indicated Resolved Time CoV-Exposed Comment:Recent close contact 05/13/2020 05/13/2020 05/27/2020 1:25 AM EST CoV-Exposed Comment:Recent close contact documented in the COVID-19 PCR/PRO order 02/01/2021 02/02/2021 02/26/2021 1:23 AM E DT documented as of this encounter Care Teams Clinical Informatics Strategist Relationship Specialty Start Date End Date Saeed Alvarez MD [address] [place] [address]. [address] [place], [place] [address] [email or web address] PCP - General 05/02/17 07/19/21 Suzanne De Leon FNP [address] [place] [address] 7 [place] [address] [email or web address] PCP - General Family Medicine 07/20/21 Saeed Alvarez MD [address] [place] [address] [address] [place] [phone] [email or web address] Insurance Assigned Provider 09/10/15 Spencer Chamorro MD [address] [place] [address], [address] [place], [place] [address] [email or web address] Insurance Assigned Provider 10/13/22 Suzanne De Leon FNP [address] [place] [address], [address] [place] [address] [email or web address] Insurance Assigned Provider 10/11/24 documented as of this encounter Additional Source Comments The information contained in this document represents components of the legal health record. It is not the complete legal health record.[facility]
--- OUTSIDE RECORDS SUMMARY | 2025-04-08 12:13 | XMS_ITS | Encounter Summary ---
Author Organization [facility] Address [address] [place] [address] Phone Care Team Providers Care Icu Rn Name Role Phone Saeed Alvarez MD Unavailable Saeed Alvarez MD Primary Care Provider [phone] Suzanne De LeonP Primary Care Provider Spencer Chamorro MD Unavailable Suzanne De LeonP Unavailable Encounter Details Date Type Department Care Team (Late st Contact Info) Description 02/24/2021 Procedure Pass [facility], [address] [address] Social History Tobacco Use Types Packs/Day Years [...] Upcoming Encounters Date Type Department Care Team ([facility] st Contact Info) Description 11/19/2024 Procedure Pass [address] [address] 06/16/2025 10:30 AM EST Appointment [address] [address] Suzanne De Leon FNP [address] [place] [address] 7 [place] [address] [email or web address] 08/03/2025 11:15 AM EST Appointment [facility] Bone Density [address] [address] Suzanne De Leon [address] 7 [place] [address] documented as of this encounter Visit Diagnoses Not on filedocumented in this encounter Additional Health Concerns Infection Onset Date Last Indicated Resolved Time CoV-Exposed Comment:Recent close contact documented in the COVID-19 PCR/PRO order 02/01/2021 02/02/2021 02/26/2021 1:23 AM E DT Assessment Noted Time PHQ-2 Depression Total Score: 1 06/20/20 20 11:09 AM EST documented as of this encounter Care Teams Icu Rn Relationship Specialty Start Date End Date Saeed Alvarez MD [address] [place], [place] [address] [place] [address] [email or web address] PCP - General 05/02/17 07/19/21 Suzanne De Leon FNP [address] [place] [address] 7 [place] [address] PCP - General Family Medicine 07/20/21 Saeed Alvarez MD [address] [place] [address] [address] [place] [phone] [email or web address] Insurance Assigned Provider 09/10/15 Spencer Chamorro MD [address] [place] [address], [address] [place] [address] [email or web address] Insurance Assigned Provider 10/13/22 Suzanne De Leon FNP [address] [place] [address], [address] [place] [address] [email or web address] Insurance Assigned Provider 10/11/24 documented as of this encounter Additional Source Comments The information contained in this document represents components of the legal health record. It is not the complete legal health record.[facility]
--- OUTSIDE RECORDS SUMMARY | 2025-04-08 12:13 | XMS_ITS | Encounter Summary ---
Author Organization [facility] Address [address] [place] [address] Phone Care Team Providers Care Cow Tester Name Role Phone Saeed Alvarez MD Unavailable Saeed Alvarez MD Primary Care Provider [phone] Suzanne De LeonP Primary Care Provider Spencer Chamorro MD Unavailable Suzanne De Leon Unavailable Encounter Details Date Type Department Care Team (Late st Contact Info) Description 08/05/2019 Ancillary Orders Virtual Department [address] [place] [address] Saeed Alvarez MD [address] [place] [address] [address] [place] [id number] [email or web address] Breast screening Social History Tobacco Use Types [...] st Contact Info) Description 11/19/2024 Procedure Pass [facility], [address] [address] 06/16/2025 10:30 AM EST Appointment [address] [address] Suzanne De Leon FNP 234 [facility], [facility] 7 [place] [address] [email or web address] 08/03/2025 11:15 AM EST Appointment [facility] Bone Density [address] [address] Suzanne De Leon FNP 234 [facility], [facility] 7 [place] [address] [email or web address] documented as of this encounter Visit Diagnoses Diagnosis Breast screening Breast screening, unspecified documented in this encounter Additional Health Concerns Infection Onset Date Last Indicated Resolved Time CoV-Exposed Comment:Recent close contact 05/13/2020 05/13/2020 05/27/2020 1:25 AM EST CoV-Exposed Comment:Recent close contact documented in the COVID-19 PCR/PRO order 02/01/2021 02/02/2021 02/26/2021 1:23 AM E DT documented as of this encounter Care Teams Cow Tester Relationship Specialty Start Date End Date Saeed Alvarez MD [address] [place] [address] [address] [place] [address] [email or web address] PCP - General 05/02/17 07/19/21 Suzanne De Leon FNP [address] [place] [address] 7 [place] [address] [email or web address] PCP - General Family Medicine 07/20/21 Saeed Alvarez MD [address] [place] [address] [address] [place] [address] [email or web address] Insurance Assigned Provider 09/10/15 Spencer Chamorro MD [address] [place] [address], [address] [place] [address] [email or web address] Insurance Assigned Provider 10/13/22 Suzanne De Leon FNP [address] [place] [address], [address] [place] [address] [email or web address] Insurance Assigned Provider 10/11/24 documented as of this encounter Additional Source Comments The information contained in this document represents components of the legal health record. It is not the complete legal health record.[facility]
--- OUTSIDE RECORDS SUMMARY | 2025-04-08 12:13 | XMS_ITS | Encounter Summary ---
Author Organization [facility] Address [address] [place] [address] Phone Care Team Providers Care Scout Professional Sports Name Role Phone Saeed Alvarez MD Unavailable [phone] Saeed Alvarez MD Primary Care Provider [phone] Suzanne De LeonP Primary Care Provider [phone] Spencer Chamorro MD Unavailable Suzanne De LeonP Unavailable Reason for Referral * MRI/CAT Scan - Closed Specialty Diagnoses / Procedures Referred By Brent to Referred To Contact Radiology Diagnoses Memory loss Procedures MRI Brain Timmy Gomez MD Phone: tel: fax: [email or web address] Referral ID Status Reason Start Date Expiration Date Visits Re quested Visits Authorized [id number] Closed 02/24/2021 02/24/2022 1 1 Encounter Details Date Type Department Care Team (Latest Contact Info) Description 02/24/2021 Transcribe Orders Virtual Department 30 [place] [address] Timmy Gomez MD [address] [place] [address], [address] [place] [address] [email or web address] Memory loss (Primary Dx) Social History [...] st Contact Info) Description 11/19/2024 Procedure Pass [address] [address] 06/16/2025 10:30 AM EST Appointment [address] [address] Suzanne De Leon, [address] [address] [email or web address] 08/03/2025 11:15 AM EST Appointment [facility] Bone [address] [address] Suzanne De Leon, [address] [address] [email or web address] documented as of this encounter Results * [...] documented as of this encounter Care Teams Scout Professional Sports Relationship Specialty Start Date End Date Saeed Alvarez MD [address] [place] [address] [address] [place] [phone] [email or web address] PCP - General 05/02/17 07/19/21 Suzanne De Leon FNP [address] [place] [address] 7 [place] [address] [email or web address] PCP - General Family Medicine 07/20/21 Saeed Alvarez MD [address] [place] [address] [address] [place] [phone] [email or web address] Insurance Assigned Provider 09/10/15 Spencer Chamorro MD [address] [place] [address] 7 [place] [address] [email or web address] Insurance Assigned Provider 10/13/22 Suzanne De Leon FNP [address] [place] [address] 7 [place] [address] [email or web address] Insurance Assigned Provider 10/11/24 documented as of this encounter Additional Source Comments The information contained in this document represents components of the legal health record. It is not the complete legal health record.[facility]
--- OUTSIDE RECORDS SUMMARY | 2025-04-08 12:13 | XMS_ITS | Clinical Summary ---
Author Organization [facility] Address [address] [place] [address] Phone Care Team Providers Care Hydration Plant Operator Name Role Phone Suzanne De Leon [facility] Primary Care Provider [phone] Suzanne De Leon [facility] Unavailable [phone] Allergies Active Allergy Reactions Criticality Noted Date [...] disabled since that time, living in a retirement with hemiplegia on the left. At baseline [...] AM EDT): Slip and fall at her retirement 03/28 with x-ray evidence of a acute, [...] - Patient should follow-up in orthopedic clinic ([phone]) in approximately 2 weeks time with repeat [...] of scheduling. Pt participated in visit from retirement. Saji has left ankle and foot swelling [...] may be evaluated in the office. The retirement member understands and agrees with this plan. [...] Type Department Care Team Description 03/16/2025 Refill [facility] [address] [place] [address] Radha Hernández Medication Refill 03/02/2025 9:45 AM EDT Office Visit [facility] [address] [place] [address] Alison Evans MD Pepyne, Diane Ma, PT Chronic right shoulder pain (Primary Dx); Right hand pain 03/01/[address] [address] Suzanne De Leon FNP Medication Refill ( levothyroxine (SYNTHROID, LEVOTHROID) 100 MCG tablet /) 02/24/2025 Refill [facility] [address] [place] [address] Anitra Arechiga CNP Medication Refill 2025 10:30 AM EDT Office Visit [facility] [address] [place] [address] Alison Evans MD Pepyne, Rachael Mervine, PT Chronic right shoulder pain (Primary Dx); Right hand pain 02/10/2025 12:54 PM EDT - 02/10/2025 1:00 PM EDT [facility] [address] [place] [address] Discharge Disposition: Left Without Being Seen 02/02/2025 10:15 AM EDT Office Visit [facility] [address] [place] [address] Alison Evans MD Pepyne, Rachael Mervine, PT Chronic right shoulder pain (Primary Dx); Right hand pain 01/28/[address] [address] Jillian Arevalo [place] Medication Refill 01/26/2025 10:15 AM EDT Office Visit [facility] [address] [place] [address] Alison Evans MD Pepyne, Rachael Mervine, PT Chronic right shoulder pain (Primary Dx); Right hand pain 01/19/2025 10:15 AM EDT Office Visit [facility] [address] [place] [address] Alison Evans MD Pepyne, Rachael Mervine, PT Chronic right shoulder pain (Primary Dx); Right hand pain 01/12/2025 3:15 PM EDT Office Visit [facility] [address] [place] [address] Alison Evans MD Swannie, Ward, DATABASE TECHNICIAN Chronic right shoulder pain (Primary Dx) from Last 3 Months Immunizations Immunization Administration [...] st Contact Info) Description 11/19/2024 Procedure Pass [address] [address] 06/16/2025 10:30 AM EST Appointment [address] [address] Suzanne De Leon [address] 7 [place] [address] 08/03/2025 11:15 AM EST Appointment [facility] Bone Density [address] [address] Suzanne De Leon [address] 7 [place] [address] Health Maintenance Due Date Last Done Comments COLOGUARD 02/22/2009 FIT TEST 02/22/2009 FOBT 02/22/2009 SIGMOIDOSCOPY 02/22/2009 VIRTUAL COLONOSCOPY 02/22/2009 ZOSTER VACCINES (1 of 2) 02/22/2014 FOLLOW UP BONE DENSITY TESTING 08/15/2023 08/15/2021 TSH LEVEL 11/25/2024 11/26/2023, 10/07, 08/23/2021, Additional history exists MAMMOGRAM 12/23/2024 12/24/2023, 02/02/2022, 10/21/2018, Additional history exists INFLUENZA VACCINE (#1) [...] this topic Medical Devices Implanted Type Area It Software Engineer Device Identifier Shelf Expiration Date Model / Serial / Lot Cement Bone 40gm [place] Gentamicin High Viscosity Softpac - [id number] Implanted:Qty: 2 on 03/28/2021 by Edouard Luna MD at [facility] Left: Acetabulum ENCORE 02/04/2023 [id number] / / [id number] Hip Stem 7.0mm Femoral Echo Fx [place] Chromium - [id number] Implanted:Qty: 1 on 03/28/2021 by Edouard Luna MD at [facility] Left: Femur [employer] 12/14/2029 [id number] / / [id number] Acetabular Shell 41mm Endo Ii Titanium Alloy Unipolar - [id number] Implanted:Qty: 1 on 03/28/2021 by Edouard Luna MD at [facility] Left: Acetabulum [employer] 03/08/2023 [id number] / / [id number] Hip Centralizer 10mm Implant Cemented Versys 16b Bx/1ea - [id number] Implanted:Qty: 1 on 03/28/2021 by Edouard Luna MD at [facility] Left: Acetabulum SHAWN / DIV OF [employer] SQUIBB 08/08/2030 [id number] / / [id number] Hip Insert 3.0mm Femoral Bio Cuevas Ii Endo Titanium Alloy Taper Plus - [id number] Implanted:Qty: 1 on 03/28/2021 by Edouard Luna MD at [facility] Left: Acetabulum [employer] 01/26/2031 [id number] / / [id number] Procedures Procedure Name Priority Date/Time Associated Diagnosis Comments ENDOSCOPY, COLON 12/08/2024 11:2 0 AM EDT [...] Recently Relevant to Health Maintenance Results * ENDOSCOPY, COLON (12/08/2024 11:20 AM EDT) Narrative Transcriptions Jeanine Santizo MD - 12/08/2024 11:20 AM EDT [facility] Patient Name: Saji Chavezdonna Attending MD:: JEANINE SANTIZO MD, Procedure Date: 12/08/2024 11:20 AM Date of : 1965 Age: 59 Admit Type: Outpatient Gender: Female Room: [place] [address] Referring MD: Suzanne De Leon Exam Type: [...] 11:20 AM Procedure Code(s): --- Professional --- 98180, Colonoscopy, flexible; with removal of tumor(s), polyp(s), or other lesion(s) by snare technique --- Technical --- 91690, Colonoscopy, flexible; with removal of tumor(s), polyp(s), or other lesion(s) by snare technique CPT copyright 2021 [employer]. All rights reserved. The codes documented in this report are preliminary and upon death surveys coder reviewmay be revised to meet current compliance requirements. Procedure Date: 12/08/2024 11:20:[address] [place] [address] Suzanne NIX GI PROCEDURE ORDERABLES Final Result * BI [...] notified of the results and recommendations. Suzanne VERASP IMG MG EXAMS Final Result * (ABNORMAL) Lipid panel (12/03/2023 10:10 AM EDT) HDL 44 mg/dL [facility] Comment: Interpretation <40 mg/dL: Low HDL cholesterol (major risk factor for CHD) Greater than or equal to 60 mg/dL: High HDL cholesterol ( negative risk factor for CHD) HDL - cholesterol is affected by a number of factors, e.g. smoking, excerise, hormones, sex and age. CHOLESTEROL 278(H) 0 - 240 mg/dL [facility] TRIGLYCERIDES 222(H) 30 - 160 mg/dL [facility] LDL 190(H) 50 - 129 mg/dL [facility] Comment: LDL levels in terms of risk for coronary heart disease: <100 mg/dL: Optimal 100-129 mg/dL: Near or above optimal 130-159 mg/dL: Borderline high 160-189 mg/dL: High >190 mg/dL: Very High CARDIAC RISK RATIO 6.3(H) 3.3 - 4.4 C [facility] Blood 12/03/2023 10:1 0 AM EDT 12/03/2023 10:20 AM EDT us Suzanne [facility] LAB BLOOD ORDERABLES Final Re sult Performing Organization Address [facility] Co de Phone Number [address] [address] * TSH with reflex (11/26/2023 11:36 AM EDT) TSH 0.85 0.27 - 4.20 uIU/mL [facility] Blood 11/26/2023 11:3 6 AM EDT 11/26/2023 11:[address] [facility] LAB BLOOD ORDERABLES Final Re sult Performing Organization Address [facility] Co de Phone Number [address] [address] * Pap Test (10/08/2023 12:00 AM EDT) 10/08/2023 10/09/2023 9:3 6 AM EDT Narrative SEE NARRATIVE - 10/15/2023 11:11 AM EDT [address] [address] First Calender Worker: Shonda Cruz MD AEROSPACE ENGINEER Cytology Report FINAL DIAGNOSIS A. PAP [...] 59, 66, 68) Note: Testing performed by [email or web address] Onclarity HR-HPV analysis. Clinical correlation is advised. This HPV test was performed at [facility], [address] [place] [address]. This test has been FDA approved for both SurePath and ThinPrep cervical cytology specimens. The accuracy and precision of this test for all other specimen sources has been verified in the Cytopathology Laboratory of the [facility] and has not been cleared or approved by the U.S. Food and Drug Administration. Clinical correlation is advised. CLINICAL HISTORY Date of Last Menstrual Period: Not Provided Menstrual History: Post Menopausal Other Clinical Conditions: Screening Pap SPECIMEN SOURCE A: PAP SMEAR (SUREPATH) CE Patient Name: SAJI JULIAN : 1965 (Age: 58) Sex: F Institution: [facility] Date of Collection: 10/08/2023 Date of Reported: 10/15/2023 11:11 Results to: Suzanne De Leon MSN us Suzanne De Leon CAD DESIGNER DRAFTER CYTOLOGY ORDERABLES Final Res ult SEE NARRATIVE [...] bone mineral density was calculated at 0.636 gm/ez9phkj a T- score of -1.9 falling within [...] in bone density since 2008. Brigida Elmore CREDIT COLLECTIONS ANALYST IMG BD BONE DENSITY DEXA F inal Result * Hepatitis C antibody, qualitative (11/11/2018 11:21 AM EDT) HCV Negative Negative [facility] Comment: This is a screening test and should be confirmed with molecular testing Blood 11/11/2018 11:2 1 AM EDT 11/11/2018 11:25 AM EDT Saeed Alvarez MD LAB BLOOD ORDERABLES Donna browning Result [facility] [address] [place] [address] from Last 3 Months or Most Recently Relevant to Health Maintenance Insurance [facility] & B [place] [facility] PART [facility] [place] MED[place] & [facility] A & B HEALTH MEDICARE PART A & [address] [place], [place] [address]HEALTH MEDICARE PART A & B [facility] Advance Directives For more information, please contact: [phone] (9AM - 5PM [facility], Saturday-Saturday) Documents on File Type Date Recorded Patient Elementary Reading Tutor Expl anation Healthcare Proxy 04/04/2021 9:10 AM Durable Power of Construction Tech 04/04/2021 9:10 AM * Full Code (Latest Code Status on File) Date Activated Date Inactivated Comments 03/28/2021 7:34 PM Question Answer Comments Code Status Confirmed With: Patient * Full Code Date Activated Date Inactivated Comments 03/28/2021 7:30 PM 03/28/2021 7:34 PM Question Answer Comments Code Status Confirmed With: PatientSurrogate Code Discussion Comments: retirement staff Healthcare Agents on File Name Relationship Healthcare Agent [facility] Communication Afua Alvarenga Sister .Primary Health Care Agent (Proxy form on file) Care Teams Hydration Plant Operator Relationship Specialty Start Date End Date Suzanne De Leon FNP [address] [place] [address] 7 [place] [address] PCP - General Family Medicine 07/20/21 Suzanne De Leon FNP [address] [place] [address], [address] [place] [address] [email or web address] Insurance Assigned Provider 10/11/24 Additional Source Comments The information contained in this document represents components of the legal health record. It is not the complete legal health record.[facility]
--- OUTSIDE RECORDS SUMMARY | 2025-04-08 12:13 | XMS_ITS | Encounter Summary ---
Author Organization [facility] Address [address] [place] [address] Phone Care Team Providers Care Change Management Consultant Name Role Phone Haley Suzanne Vann [facility] Primary Care Provider [phone] Spencer Chamorro MD Unavailable Suzanne De Leon [facility] Unavailable [phone] Encounter Details Date Type Department Care Team (Late st Contact Info) Description 12/19/2022 Procedure Pass [facility], Ct Scan - [address] [address] Social History Tobacco Use Types Packs/Day Years [...] st Contact Info) Description 11/19/2024 Procedure Pass [address] [address] 06/16/2025 10:30 AM EST Appointment [address] [address] Suzanne De Leon FNP [address] [place] [address] 08/03/2025 11:15 AM EST Appointment [facility] Bone Density [address] [address] Suzanne De Leon FNP [address] [place] [address] documented as of this encounter Visit Diagnoses Not on filedocumented in this encounter Additional Health Concerns Assessment Noted Time PHQ-2 Depression Total Score: 1 06/20/20 20 11:09 AM EST documented as of this encounter Care Teams Change Management Consultant Relationship Specialty Start Date End Date Suzanne De Leon FNP [address] [place] [address] [place] [address] PCP - General Family Medicine 07/20/21 Spencer Chamorro MD [address] [place] [address] Insurance Assigned Provider 10/13/22 Suzanne De Leon FNP [address] [place] [address], [address] [place] [address] [email or web address] Insurance Assigned Provider 10/11/24 documented as of this encounter Additional Source Comments The information contained in this document represents components of the legal health record. It is not the complete legal health record.[facility]
--- OUTSIDE RECORDS SUMMARY | 2025-04-08 12:13 | XMS_ITS | Encounter Summary ---
Author Organization [facility] Address [address] [place] [address] Phone Care Team Providers Care Process Developer Name Role Phone Saeed Alvarez MD Unavailable Saeed Alvarez MD Primary Care Provider [phone] Suzanne De LeonP Primary Care Provider [phone] Spencer Chamorro MD Unavailable Suzanne De LeonP Unavailable [phone] Encounter Details Date Type Department Care Team (Late st Contact Info) Description 03/28/2021 Procedure Pass [place] Admitting Dept - Virtual Department 30 [place] [address] Social History Tobacco Use Types Packs/Day Years [...] 7:46 PM EDT Jillian Johnson RN * Jerome Suicide Severity Rating Scale (Screener/Recent Self-Report) Question [...] st Contact Info) Description 11/19/2024 Procedure Pass [address] [address] 06/16/2025 10:30 AM EST Appointment [address] [address] Suzanne De Leon, [address] [place] [address] 08/03/2025 11:15 AM EST Appointment [address] [address] Suzanne De Leon, [address] 7 [place] [address] documented as of this encounter Visit Diagnoses Not on filedocumented in this encounter Additional Health Concerns Assessment Noted Time PHQ-2 Depression Total Score: 1 06/20/20 20 11:09 AM EST documented as of this encounter Care Teams Process Developer Relationship Specialty Start Date End Date Saeed Alvarez MD [address] [place] [address] [address] [place] [address] [email or web address] PCP - General 05/02/17 07/19/21 Suzanne De Leon FNP [address] [place] [address], [address] [place] [address] [email or web address] PCP - General Family Medicine 07/20/21 Saeed Alvarez MD [address] [place] [address] [address] [place] [address] [email or web address] Insurance Assigned Provider 09/10/15 Spencer Chamorro MD [address] [place] [address], [address] [place] [address] [email or web address] Insurance Assigned Provider 10/13/22 Suzanne De Leon FNP [address] [place] [address], [address] [place] [address] [email or web address] Insurance Assigned Provider 10/11/24 documented as of this encounter Additional Source Comments The information contained in this document represents components of the legal health record. It is not the complete legal health record.[facility]
--- OUTSIDE RECORDS SUMMARY | 2025-04-08 12:13 | XMS_ITS | Encounter Summary ---
Author Organization [facility] Address [address] [place] [address] Phone Care Team Providers Care Senior Engineering Specialist Name Role Phone Suzanne De Leon [facility] Primary Care Provider [phone] Suzanne De Leon NET DEVELOPER ARCHITECT Unavailable [phone] Encounter Details Date Type Department Care Team (Late st Contact Info) Description 01/21/2024 Procedure Pass [facility] Endoscopy Admitting Dept Virtual Department 30 [place] [address] Social History Tobacco Use Types Packs/Day Years [...] st Contact Info) Description 11/19/2024 Procedure Pass [address] [address] 06/16/2025 10:30 AM EST Appointment [address] [address] Suzanne De Leon FNP [address] [place] [address] [email or web address] 08/03/2025 11:15 AM EST Appointment [facility] Bone Density [address] [address] Suzanne De Leon FNP [address] [address] [email or web address] documented as of this encounter Visit Diagnoses Not on filedocumented in this encounter Additional Health Concerns Assessment Noted Time PHQ-2 Depression Total Score: 0 10/08/19 24 11:24 AM EDT documented as of this encounter Care Teams Senior Engineering Specialist Relationship Specialty Start Date End Date Suzanne De Leon FNP [address] [place] [address] [email or web address] PCP - General Family Medicine 07/20/21 Suzanne De Leon FNP [address] [place] [address] 7 [place] [address] [email or web address] Insurance Assigned Provider 10/11/24 documented as of this encounter Additional Source Comments The information contained in this document represents components of the legal health record. It is not the complete legal health record.[facility]
== END 2025-04-08 11:18 | disposition home or self-care (01) ==
LOC: HO.HOS 10:30
PROVIDERS: Visit Provider Physician Assistant
DX: S72.90XA Unspecified fracture of unspecified femur, initial encounter for closed fracture (principal)
CPT/HCPCS: 99024

== ENCOUNTER → 2025-04-08 10:30 | Outpatient (BNVA) | payer MEDICARE, MEDICAID, SELFPAY | PROVIDERS: Visit Provider Physician Assistant | DX: S72.92XD Unspecified fracture of left femur, subsequent encounter for closed fracture with routine healing (principal) | CPT/HCPCS: 99212 ==

== ENCOUNTER 2025-04-22 12:58 | Outpatient (AMB) | payer MEDICARE, MEDICAID, SELFPAY ==
--- NOTE | 2025-04-22 13:09 | A.OFFVIS_ITS ---
Intake Visit Reasons: O/V Left Femur Fracture 03/03/25 per TM Intake Note: Radha is a 60 year old woman who presents today in a stretcher for a follow up of left femur fracture, DOI 03/03/25. At last visit patient is no weight bear, and follow up in 2 weeks with x-rays. Allergies apple Allergy (Verified 04/22/25 13:12) Unknown lactose Allergy (Verified 04/22/25 13:12) Gastrointestinal Upset levofloxacin (From Levaquin) Allergy (Verified 04/22/25 13:12) Unknown peanut Allergy (Verified 04/22/25 13:12) Unknown Penicillins Allergy (Verified 04/22/25 13:12) Unknown pork derived (porcine) Allergy (Verified 04/22/25 13:12) Unknown Medication List - Last Reconciled 04/22/25 by Rolando Don PA-C acetaminophen 650 mg PO Q6H PRN alendronate 70 mg PO MO calcium 500 mg PO DAILY cetirizine (Zyrtec) 10 mg PO DAILY cholecalciferol (vitamin D3) 50 mcg PO DAILY cyclobenzaprine 5 mg PO TID PRN fluoxetine 10 mg PO DAILY fluoxetine 20 mg PO DAILY ibuprofen 400 mg PO BID levetiracetam (Keppra) 750 mg PO BID levothyroxine (Synthroid) 100 mcg PO SUTUWEFRSA levothyroxine (Synthroid) 50 mcg PO MOTH loperamide (Imodium A-D) 2 mg PO Q OTHER DAY magnesium aspart,citrate,oxide mg PO mirtazapine 7.5 mg PO BEDTIME multivitamin 1 tab PO DAILY omeprazole 40 mg PO BEDTIME HPI HPI O/V Left Femur Fracture 03/03/25 per TM: Details: 60-year-old female returns to the office today approximately 6 weeks status post left femur fracture 03/03/2025. She continues to reside in a rehab facility. No new concerns today. [facility] Medical History CVA (cerebral vascular accident) Social History Current occupational status: disabled Review of Systems Const All systems reviewed & are unremarkable except as noted in HPI and below Physical Exam Const General: cooperative and no acute distress Orientation/consciousness: patient oriented x3 Resp Effort & Inspection: normal respiratory effort and able to speak in complete sentences Cardio Peripheral pulses: Peripheral pulses 2+ throughout Neuro General: patient oriented x3 Extrem Other: Left lower extremity skin is intact. No swelling along the distal femur is reso lving and there is no skin breakdown over the fracture site. She contracts her leg into a flexed position at the knee and hip. She is insensate to touch. Pulses present. Assessment & Plan Assessment & Plan (1) Fracture of femur: Code(s): S72.90XA - Unspecified fracture of unspecified femur, initial encounter for closed fracture Category: Medical Plan: Continue with caution of her skin and her neurovascular status. We will continue checking her regularly to make sure that her skin remains intact and that this fracture heals. If this does heal in a reasonable position it will be acceptable given that she does not walk and is insensate in his limb. This continues to be explained to the patient and to her caregiver and to her healthcare proxy. I gave instruction for the rehab facility to check her skin routinely and if there is any concerns such as irritation skin breakdown tenting swelling redness or any other signs of skin breakdown. they should contact us immediately. Otherwise the patient will continue with nonweightbearing and see us back in 3 weeks with x-rays, sooner if needed. Coding Level of Care Code Global (55346) Diagnoses Fracture of femur S72.90XA
== END 2025-04-22 13:33 | disposition home or self-care (01) ==
LOC: HO.HOS 12:59
PROVIDERS: Visit Provider Physician Assistant
DX: S72.90XA Unspecified fracture of unspecified femur, initial encounter for closed fracture (principal)
CPT/HCPCS: 99024

== ENCOUNTER → 2025-04-22 12:58 | Outpatient (BNVA) | payer MEDICARE, MEDICAID, SELFPAY | PROVIDERS: Visit Provider Physician Assistant | DX: S72.92XD Unspecified fracture of left femur, subsequent encounter for closed fracture with routine healing (principal) | CPT/HCPCS: 99212 ==

== ENCOUNTER 2025-05-13 14:52 | Outpatient (AMB) | payer MEDICARE, MEDICAID, SELFPAY ==
--- NOTE | 2025-05-13 15:19 | A.OFFVIS_ITS ---
Intake Visit Reasons: O/V Left Femur Fracture 03/03/25 per TM Intake Note: Radha is a 60 year old woman who presents today in a stretcher for a follow up of left femur fracture, DOI 03/03/25. Patient reports that she is doing well. Allergies apple Allergy (Verified 04/22/25 13:12) Unknown lactose Allergy (Verified 04/22/25 13:12) Gastrointestinal Upset levofloxacin (From Levaquin) Allergy (Verified 04/22/25 13:12) Unknown peanut Allergy (Verified 04/22/25 13:12) Unknown Penicillins Allergy (Verified 04/22/25 13:12) Unknown pork derived (porcine) Allergy (Verified 04/22/25 13:12) Unknown Medication List - Last Reconciled 05/17/25 by Rolando Don PA-C acetaminophen 650 mg PO Q6H PRN alendronate 70 mg PO MO calcium 500 mg PO DAILY cetirizine (Zyrtec) 10 mg PO DAILY cholecalciferol (vitamin D3) 50 mcg PO DAILY cyclobenzaprine 5 mg PO TID PRN fluoxetine 10 mg PO DAILY fluoxetine 20 mg PO DAILY ibuprofen 400 mg PO BID levetiracetam (Keppra) 750 mg PO BID levothyroxine (Synthroid) 100 mcg PO SUTUWEFRSA levothyroxine (Synthroid) 50 mcg PO MOTH loperamide (Imodium A-D) 2 mg PO Q OTHER DAY magnesium aspart,citrate,oxide mg PO mirtazapine 7.5 mg PO BEDTIME multivitamin 1 tab PO DAILY omeprazole 40 mg PO BEDTIME HPI HPI O/V Left Femur Fracture 03/03/25 per TM: Details: 60-year-old female presents to the office today for a follow-up left distal femur fracture. Patient continues to remain nonweightbearing. She is insensate to the left lower extremity but does have mobility and comes in on a stretcher today with legs in flexed position. [facility] Medical History CVA (cerebral vascular accident) Social History Current occupational status: disabled Review of Systems Const All systems reviewed & are unremarkable except as noted in HPI and below Physical Exam Const General: cooperative and no acute distress Orientation/consciousness: patient oriented x3 Resp Effort & Inspection: normal respiratory effort and able to speak in complete sentences Cardio Peripheral pulses: Peripheral pulses 2+ throughout Neuro General: patient oriented x3 Extrem Other: Left lower extremity skin is intact. No swelling along the distal femur is resolving and there is no skin breakdown over the fracture site. She contracts her leg into a flexed position at the knee and hip. She is insensate to touch. Pulses present. Assessment & Plan Assessment & Plan (1) Fracture of femur: Code(s): S72.90XA - Unspecified fracture of unspecified femur, initial encounter for closed fracture Category: Medical Plan: Continue with caution of her skin and her neurovascular status. We will continue checking her regularly to make sure that her skin remains intact and that this fracture heals. If this does heal in a reasonable position it will be acceptable given that she does not walk and is insensate in his limb. This continues to be explained to the patient and to her caregiver and to her healthcare proxy. I gave instruction for the rehab facility to check her skin routinely and if there is any concerns such as irritation skin breakdown tenting swelling redness or any other signs of skin breakdown. they should contact us immediately. Otherwise the patient will continue with nonweightbearing and see us back in 3 weeks with x-rays, sooner if needed. Coding Level of Care Code Global (56955) Diagnoses Fracture of femur S72.90XA
--- OUTSIDE RECORDS SUMMARY | 2025-05-13 17:59 | XMS_ITS | Encounter Summary ---
Author Organization [facility] Address [address] [place] [address] Phone Care Team Providers Care Candy Dipper Hand Name Role Phone Saeed Alvarez MD Unavailable Suzanne De Leon [facility] Primary Care Provider [phone] Spencer Chamorro MD Unavailable Suzanne De Leon [facility] Unavailable Reason for Visit * Reason Onset Date Comments orders 03/15/2022 HCP orders Encounter Details Date Type Department Care Team ([facility] st Contact Info) Description 03/15/2022 Telephone [facility] [address] [place] [address] Richard Ward, [facility] [address] [place] [address] orders (HCP orders) Social History Tobacco Use [...] Any questions she can be reached at [phone] or [phone] documented in this encounter Plan of Treatment Upcoming Encounters Date Type Department Care Team (Late st Contact Info) Description 11/19/2024 Procedure Pass [address] [address] 06/16/2025 10:30 AM EST Appointment [address] [address] Suzanne De Leon FNP [address] [place] [address], [address] [place] [address] 08/03/2025 11:15 AM EST Appointment [facility] [address] [place] [address] Suzanne De LeonDINAH [address] [facility], [address] [place] [address] [email or web address] documented as of this encounter Visit Diagnoses Diagnosis Incontinence of feces with fecal urgency- Primary documented in this encounter Additional Health Concerns Assessment Noted Time PHQ-2 Depression Total Score: 1 06/20/20 20 11:09 AM EST documented as of this encounter Care Teams Candy Dipper Hand Relationship Specialty Start Date End Date Suzanne De LeonDINAH [address] [place] [address], [facility] 7 [place] [address] [email or web address] PCP - General Family Medicine 07/20/21 Saeed Alvarez MD [address] [place] [address] [address] [place] [address] [email or web address] Insurance Assigned Provider 09/10/15 Spencer Chamorro MD [address] [place] [address], [address] [place] [id number] Insurance Assigned Provider 10/13/22 Suzanne De Leon DINAH Vann [address] [place] [address] [address] [place] [address] [email or web address] Insurance Assigned Provider 10/11/24 documented as of this encounter Additional Source Comments The information contained in this document represents components of the legal health record. It is not the complete legal health record.[facility]
--- OUTSIDE RECORDS SUMMARY | 2025-05-13 18:00 | XMS_ITS | Encounter Summary ---
Author Organization [facility] Address [address] [place] [address] Phone Care Team Providers Care Auction Clerk Name Role Phone Suzanne De Leon [facility] Primary Care Provider [phone] Suzanne De Leon BACK OFFICE MEDICAL ASSISTANT Unavailable [phone] Encounter Details Date Type Department Care Team (Late st Contact Info) Description 01/21/2024 Procedure Pass [facility] Endoscopy Admitting Dept Virtual Department 30 [place] [address] Social History Tobacco Use Types Packs/Day Years [...] st Contact Info) Description 11/19/2024 Procedure Pass [address] [address] 06/16/2025 10:30 AM EST Appointment [address] [address] Suzanne De Leon FNP [address] [place] [address] 08/03/2025 11:15 AM EST Appointment [facility] Bone Density [address] [address] Suzanne De Leon FNP [address] [address] [email or web address] documented as of this encounter Visit Diagnoses Not on filedocumented in this encounter Additional Health Concerns Assessment Noted Time PHQ-2 Depression Total Score: 0 10/08/19 24 11:24 AM EDT documented as of this encounter Care Teams Auction Clerk Relationship Specialty Start Date End Date Suzanne De Leon FNP [address] [place] [address] [email or web address] PCP - General Family Medicine 07/20/21 Suzanne De Leon FNP [address] [place] [address] 7 [place] [address] [email or web address] Insurance Assigned Provider 10/11/24 documented as of this encounter Additional Source Comments The information contained in this document represents components of the legal health record. It is not the complete legal health record.[facility]
--- OUTSIDE RECORDS SUMMARY | 2025-05-13 18:00 | XMS_ITS | Encounter Summary ---
Author Organization [facility] Address [address] [place] [address] Phone Care Team Providers Care Physician Intensivist Name Role Phone Saeed Alvarez MD Unavailable Saeed Alvarez MD Primary Care Provider [phone] Suzanne De Leon [facility] Primary Care Provider Spencer Chamorro MD Unavailable Suzanne De Leon [facility] Unavailable [phone] Encounter Details Date Type Department Care Team (Late st Contact Info) Description 07/31/2017 Ancillary Orders [facility] Medicine [address] [place] [address] Saeed Alvarez MD 234 [facility]. [address] [place] [address] [email or web address] Breast screening Social History Tobacco Use [...] Contact Info) Description 11/19/2024 Procedure Pass [address] [address] 06/16/2025 10:30 AM EST Appointment [address] [address] [place] Suzanne Vann, [facility] [address] [facility], [address] [place] [address] [email or web address] 08/03/2025 11:15 AM EST Appointment [facility], Bone Density [address] [address] Suzanne De Leon Soo, [address], [facility] 7 [place] [address] documented as of this encounter Results * [...] lowers the sensitivity of mammography. POS - [id number] Narrative 10/15/2017 11:05 AM EDT Full-field digital [...] whichlowers the sensitivity of mammography. POS - [id number] Saeed Alvarez MD IMG MG EXAMS Final [...] documented as of this encounter Care Teams Physician Intensivist Relationship Specialty Start Date End Date Saeed Alvarez MD [address] [place] [address] [address] [place] [address] [email or web address] PCP - General 05/02/17 07/19/21 Suzanne De Leon FNP [address] [place] [address], [address] [place] [address] [email or web address] PCP - General Family Medicine 07/20/21 Saeed Alvarez MD [address] [place] [address] [address] [place] [address] [email or web address] Insurance Assigned Provider 09/10/15 Spencer Chamorro MD [address] [place] [address], [address] [place] [address] [email or web address] Insurance Assigned Provider 10/13/22 Suzanne De Leon FNP [address] [place] [address], [address] [place] [address] [email or web address] Insurance Assigned Provider 10/11/24 documented as of this encounter Additional Source Comments The information contained in this document represents components of the legal health record. It is not the complete legal health record.[facility]
--- OUTSIDE RECORDS SUMMARY | 2025-05-13 18:00 | XMS_ITS | Encounter Summary ---
Author Organization [facility] Address [address] [place] [address] Phone Care Team Providers Care Facilities Technician Name Role Phone Saeed Alvarez MD Unavailable [phone] Saeed Alvarez MD Primary Care Provider [phone] Suzanne De Leon [facility] Primary Care Provider [phone] Spencer Chamorro MD Unavailable Suzanne De LeonP Unavailable [phone] Reason for Referral * MRI/CAT Scan - Closed Specialty Diagnoses / Procedures Referred By Brent to Referred To Contact Radiology Diagnoses Memory loss Procedures MRI Brain Timmy Gomez MD Phone: tel: fax: [email or web address] Referral ID Status Reason Start Date Expiration Date Visits Re quested Visits Authorized [id number] Closed 02/24/2021 02/24/2022 1 1 Encounter Details Date Type Department Care Team (Latest Contact Info) Description 02/24/2021 Transcribe Orders Virtual Department [address] [place] [address] Timmy Gomez MD [address] [place] [address], [address] [place] [address] [email or web address] Memory loss (Primary Dx) Social History [...] Contact Info) Description 11/19/2024 Procedure Pass [address] [address] 06/16/2025 10:30 AM EST Appointment [address] [address] Suzanne De Leon, [address] [address] [email or web address] 08/03/2025 11:15 AM EST Appointment [facility] Bone [address] [address] Suzanne De Leon, [address] [address] [email or web address] documented as of this encounter Results * [...] documented as of this encounter Care Teams Facilities Technician Relationship Specialty Start Date End Date Saeed Alvarez MD [address] [place] [address] [address] [place] [address] [email or web address] PCP - General 05/02/17 07/19/21 Suzanne De Leon FNP [address] [place] [address] 7 [place] [address] [email or web address] PCP - General Family Medicine 07/20/21 Saeed Alvarez MD [address] [place] [address] [address] [place] [address] [email or web address] Insurance Assigned Provider 09/10/15 Spencer Chamorro MD [address] [place] [address] 7 [place] [address] [email or web address] Insurance Assigned Provider 10/13/22 Suzanne De Leon FNP [address] [place] [address] 7 [place] [address] [email or web address] Insurance Assigned Provider 10/11/24 documented as of this encounter Additional Source Comments The information contained in this document represents components of the legal health record. It is not the complete legal health record.[facility]
--- OUTSIDE RECORDS SUMMARY | 2025-05-13 18:00 | XMS_ITS | Encounter Summary ---
Author Organization [facility] Address [address] [place] [address] Phone Care Team Providers Care Linux Vmware Administrator Name Role Phone Saeed Alvarez MD Unavailable Saeed Alvarez MD Primary Care Provider [phone] Suzanne De Leon [facility] Primary Care Provider Spencer Chamorro MD Unavailable Suzanne De Leon [facility] Unavailable [phone] Encounter Details Date Type Department Care Team (Late st Contact Info) Description 06/02/2021 Procedure Pass [facility], [facility] [address] [place] [address] Social History Tobacco Use Types Packs/Day Years [...] Contact Info) Description 11/19/2024 Procedure Pass [address] [address] 06/16/2025 10:30 AM EST Appointment [address] [address] Suzanne De Leon [facility] 234 [facility] 7 [place] [address] [email or web address] 08/03/2025 11:15 AM EST Appointment [facility] Bone Density [address] [address] Suzanne De Leon FNP [address] [address] documented as of this encounter Visit Diagnoses Not on filedocumented in this encounter Additional Health Concerns Assessment Noted Time PHQ-2 Depression Total Score: 1 06/20/20 20 11:09 AM EST documented as of this encounter Care Teams Linux Vmware Administrator Relationship Specialty Start Date End Date Saeed Alvarez MD [address] [place] [address] [address] [place] [address] [email or web address] PCP - General 05/02/17 07/19/21 Suzanne De Leon FNP [address] [place] [address] 7 [place] [address] PCP - General Family Medicine 07/20/21 Saeed Alvarez MD [address] [place] [address] [address] [place] [phone] [email or web address] Insurance Assigned Provider 09/10/15 Spencer Chamorro MD [address] [place] [address] 7 [place] [address] [email or web address] Insurance Assigned Provider 10/13/22 Suzanne De Leon FNP [address] [place] [address] 7 [place] [address] [email or web address] Insurance Assigned Provider 10/11/24 documented as of this encounter Additional Source Comments The information contained in this document represents components of the legal health record. It is not the complete legal health record.[facility]
--- OUTSIDE RECORDS SUMMARY | 2025-05-13 18:00 | XMS_ITS | Encounter Summary ---
Author Organization [facility] Address [address] [place] [address] Phone Care Team Providers Care Flame Hardener Name Role Phone Saeed Alvarez MD Unavailable [phone] Saeed Alvarez MD Primary Care Provider [phone] Suzanne De LeonP Primary Care Provider Spencer Chamorro MD Unavailable Suzanne De LeonP Unavailable Encounter Details Date Type Department Care Team (Late st Contact Info) Description 02/24/2021 Procedure Pass [facility], [address] [address] Social History Tobacco Use Types Packs/Day Years [...] Upcoming Encounters Date Type Department Care Team ([facility] st Contact Info) Description 11/19/2024 Procedure Pass [address] [address] 06/16/2025 10:30 AM EST Appointment [address] [address] Suzanne De Leon FNP [address] [place] [address] 7 [place] [address] [email or web address] 08/03/2025 11:15 AM EST Appointment [facility] Bone Density [address] [address] Suzanne De Leon [address] 7 [place] [address] [email or web address] documented as of this encounter Visit Diagnoses Not on filedocumented in this encounter Additional Health Concerns Infection Onset Date Last Indicated Resolved Time CoV-Exposed Comment:Recent close contact documented in the COVID-19 PCR/PRO order 02/01/2021 02/02/2021 02/26/2021 1:23 AM E DT Assessment Noted Time PHQ-2 Depression Total Score: 1 06/20/20 20 11:09 AM EST documented as of this encounter Care Teams Flame Hardener Relationship Specialty Start Date End Date Saeed Alvarez MD [address] [place], [place] [address] [place] [address] [email or web address] PCP - General 05/02/17 07/19/21 Suzanne De Leon FNP [address] [place] [address] 7 [place] [address] [email or web address] PCP - General Family Medicine 07/20/21 Saeed Alvarez MD [address] [place] [address] [address] [place] [address] [email or web address] Insurance Assigned Provider 09/10/15 Spencer Chamorro MD [address] [place] [address], [address] [place] [address] [email or web address] Insurance Assigned Provider 10/13/22 Suzanne De Leon FNP [address] [place] [address], [address] [place] [address] [email or web address] Insurance Assigned Provider 10/11/24 documented as of this encounter Additional Source Comments The information contained in this document represents components of the legal health record. It is not the complete legal health record.[facility]
--- OUTSIDE RECORDS SUMMARY | 2025-05-13 18:00 | XMS_ITS | Encounter Summary ---
Author Organization [facility] Address [address] [place] [address] Phone Care Team Providers Care Pediatric Geneticist Name Role Phone Saeed Alvarez MD Unavailable Saeed Alvarez MD Primary Care Provider [phone] Suzanne De Leon [facility] Primary Care Provider Spencer Chaomrro MD Unavailable Suzanne De Leon [facility] Unavailable [phone] Encounter Details Date Type Department Care Team (Late st Contact Info) Description 08/11/2018 Ancillary Orders [facility] Medicine [address] [facility] [place] [address] Saeed Alvarez MD 234 [facility]. [address] [place] [id number] [email or web address] Breast screening Social History Tobacco Use Types [...] Contact Info) Description 11/19/2024 Procedure Pass [address] [address] 06/16/2025 10:30 AM EST Appointment [address] [address] Haley Suzanne Vann, [facility] 234 [facility], [address] [place] [address] 08/03/2025 11:15 AM EST Appointment [facility], Bone Density [address] [address] Suzanne De Leon Soo, [facility] 234 [facility], [address] [place] [address] [email or web address] documented as of this encounter Results * BI MAMMOGRAM SCREENING WITH TOMOSYNTHESIS WITH CAD (BILATERAL) (10/21/2018 2:18 PM EDT) Anatomical Region Laterality Modality Breast Left, Breast Right, Breast Bilateral Bila teral Mammography 10/22/2018 8:05 AM EDT Impressions 10/22/2018 8:07 AM EDT No mammographic change indicative of malignancy. Limited study, particularly on the left due to difficulty with positioning from patient's disability and requirement to be performed with the patient in a wheelchair. BI-RADS CATEGORY: 2 - Benign finding. DENSITY: The breast tissue is heterogeneously dense, an appearance which lowers the sensitivity of mammography. POS -[id number] Narrative 10/22/2018 8:07 AM EDT Bilateral full-field [...] appearance whichlowers the sensitivity of mammography. POS -[id number] Saeed Alvarez MD IMG MG EXAMS Final [...] documented as of this encounter Care Teams Pediatric Geneticist Relationship Specialty Start Date End Date Saeed Alvarez MD [address] [place] [address] [address] [place] [address] [email or web address] PCP - General 05/02/17 07/19/21 Suzanne De Leon FNP [address] [place] [address], [address] [place] [address] [email or web address] PCP - General Family Medicine 07/20/21 Saeed Alvarez MD [address] [place] [address] [address] [place] [address] [email or web address] Insurance Assigned Provider 09/10/15 Spencer Chamorro MD [address] [place] [address], [address] [place], [place] [address] [email or web address] Insurance Assigned Provider 10/13/22 Suzanne De Leon FNP [address] [place] [address], [address] [place] [address] [email or web address] Insurance Assigned Provider 10/11/24 documented as of this encounter Additional Source Comments The information contained in this document represents components of the legal health record. It is not the complete legal health record.[facility]
--- OUTSIDE RECORDS SUMMARY | 2025-05-13 18:00 | XMS_ITS | Encounter Summary ---
Author Organization [facility] Address [address] [place] [address] Phone Care Team Providers Care Tin Flipper Name Role Phone Saeed Alvarez MD Unavailable Saeed Alvarez MD Primary Care Provider [phone] Suzanne De LeonP Primary Care Provider [phone] Spencer Chamorro MD Unavailable Suzanne De LeonP Unavailable Encounter Details Date Type Department Care Team (Late st Contact Info) Description 03/28/2021 Procedure Pass [place] Admitting Dept - Virtual Department 30 [place] [address] Social History Tobacco Use Types Packs/Day Years [...] 7:46 PM EDT Jillian Johnson RN * [place] Suicide Severity Rating Scale (Screener/Recent Self-Report) Question [...] st Contact Info) Description 11/19/2024 Procedure Pass [address] [address] 06/16/2025 10:30 AM EST Appointment [address] [address] Suzanne De Leon, [address] 7 [place] [address] [email or web address] 08/03/2025 11:15 AM EST Appointment [address] [address] Suzanne De Leon, [address] 7 [place] [address] [email or web address] documented as of this encounter Visit Diagnoses Not on filedocumented in this encounter Additional Health Concerns Assessment Noted Time PHQ-2 Depression Total Score: 1 06/20/20 20 11:09 AM EST documented as of this encounter Care Teams Tin Flipper Relationship Specialty Start Date End Date Saeed Alvarez MD [address] [place] [address] [address] [place] [address] [email or web address] PCP - General 05/02/17 07/19/21 Suzanne De Leon FNP [address] [place] [address], [address] [place] [address] [email or web address] PCP - General Family Medicine 07/20/21 Saeed Alvarez MD [address] [place] [address] [address] [place] [address] [email or web address] Insurance Assigned Provider 09/10/15 Spencer Chamorro MD [address] [place] [address], [address] [place] [address] [email or web address] Insurance Assigned Provider 10/13/22 Suzanne De Leon FNP [address] [place] [address], [address] [place] [address] [email or web address] Insurance Assigned Provider 10/11/24 documented as of this encounter Additional Source Comments The information contained in this document represents components of the legal health record. It is not the complete legal health record.[facility]
--- OUTSIDE RECORDS SUMMARY | 2025-05-13 18:00 | XMS_ITS | Encounter Summary ---
Author Organization [facility] Address [address] [place] [address] Phone Care Team Providers Care Pot Holder Binder Name Role Phone Suzanne De Leon [facility] Primary Care Provider [phone] Suzanne De Leon CIRCULAR GANG SAW OPERATOR Unavailable [phone] Encounter Details Date Type Department Care Team (Late st Contact Info) Description 12/08/2024 Procedure Pass [facility] Admitting Dept Virtual Department 30 [place] [address] Social History Tobacco Use Types Packs/Day Years [...] st Contact Info) Description 11/19/2024 Procedure Pass [address] [address] 06/16/2025 10:30 AM EST Appointment [address] [address] Suzanne De Leon FNP [address] [place] [address] 08/03/2025 11:15 AM EST Appointment [facility] Bone Density [address] [address] Suzanne De Leon FNP [address] [address] [email or web address] documented as of this encounter Visit Diagnoses Not on filedocumented in this encounter Additional Health Concerns Assessment Noted Time PHQ-2 Depression Total Score: 0 11/18/19 25 11:54 AM EDT documented as of this encounter Care Teams Pot Holder Binder Relationship Specialty Start Date End Date Suzanne De Leon FNP [address] [place] [address] [email or web address] PCP - General Family Medicine 07/20/21 Suzanne De Leon FNP [address] [place] [address] 7 [place] [address] [email or web address] Insurance Assigned Provider 10/11/24 documented as of this encounter Additional Source Comments The information contained in this document represents components of the legal health record. It is not the complete legal health record.[facility]
--- OUTSIDE RECORDS SUMMARY | 2025-05-13 18:00 | XMS_ITS | Encounter Summary ---
Author Organization [facility] Address [address] [place] [address] Phone Care Team Providers Care Fruit Or Nut Farmworker Name Role Phone Suzanne De Leon [facility] Primary Care Provider [phone] Suzanne De Leon [facility] Unavailable [phone] Encounter Details Date Type Department Care Team (Late st Contact Info) Description 10/08/2023 Procedure Pass [facility], [address] [address] Social History Tobacco Use Types Packs/Day Years [...] Contact Info) Description 11/19/2024 Procedure Pass [address] [address] 06/16/2025 10:30 AM EST Appointment [address] [address] Suzanne De Leon FNP [address] [place] [address] 08/03/2025 11:15 AM EST Appointment [address] [address] Suzanne De Leon FNP [address] [place] [address] documented as of this encounter Visit Diagnoses Not on filedocumented in this encounter Additional Health Concerns Assessment Noted Time PHQ-2 Depression Total Score: 0 10/08/19 24 11:24 AM EDT documented as of this encounter Care Teams Fruit Or Nut Farmworker Relationship Specialty Start Date End Date Suzanne De Leon FNP [address] [place] [address] [email or web address] PCP - General Family Medicine 07/20/21 Suzanne De Leon FNP [address] [place] [address] 7 [place] [address] [email or web address] Insurance Assigned Provider 10/11/24 documented as of this encounter Additional Source Comments The information contained in this document represents components of the legal health record. It is not the complete legal health record.[facility]
--- OUTSIDE RECORDS SUMMARY | 2025-05-13 18:00 | XMS_ITS | Encounter Summary ---
Author Organization [facility] Address [address] [place] [address] Phone Care Team Providers Care In Home Baby Sitter Name Role Phone Saeed Alvarez MD Unavailable Suzanne De LeonP Primary Care Provider [phone] Spencer Chamorro MD Unavailable Suzanne De Leon Unavailable [phone] Encounter Details Date Type Department Care Team (Latest Contact Info) Description 09/06/2022 Transcribe Orders Virtual Department 30 [place] [address] Suzanne De Leon FNP [address] [place] [address] 7 [place] [address] [email or web address] Breast screening (Primary Dx) Social History Tobacco [...] Contact Info) Description 11/19/2024 Procedure Pass [address] [address] 06/16/2025 10:30 AM EST Appointment [address] [address] Suzanne De Leon FNP 234 [facility] 7 [place] [address] 08/03/2025 11:15 AM EST Appointment [facility] Bone Density [address] [address] Suzanne De Leon FNP 234 [facility] 7 [place] [address] documented as of this encounter Visit Diagnoses Diagnosis Breast screening- Primary Breast screening, unspecified documented in this encounter Additional Health Concerns Assessment Noted Time PHQ-2 Depression Total Score: 1 06/20/20 20 11:09 AM EST documented as of this encounter Care Teams In Home Baby Sitter Relationship Specialty Start Date End Date Suzanne De Leon FNP [address] [place] [address] [place] [address] [email or web address] PCP - General Family Medicine 07/20/21 Saeed Alvarez MD [address] [place] [address] [address] [place], [place] [address] [email or web address] Insurance Assigned Provider 09/10/15 Spencer Chamorro MD [address] [place] [address] 7 [place] [address] [email or web address] Insurance Assigned Provider 10/13/22 Suzanne De Leon FNP [address] [place] [address] [address] [place] [address] [email or web address] Insurance Assigned Provider 10/11/24 documented as of this encounter Additional Source Comments The information contained in this document represents components of the legal health record. It is not the complete legal health record.[facility]
--- OUTSIDE RECORDS SUMMARY | 2025-05-13 18:00 | XMS_ITS | Encounter Summary ---
Author Organization [facility] Address [address] [place] [address] Phone Care Team Providers Care Manager Statistics Name Role Phone Haley Suzanne Vann [facility] Primary Care Provider Spencer Chamorro MD Unavailable Suzanne De Leon [facility] Unavailable [phone] Encounter Details Date Type Department Care Team (Late st Contact Info) Description 12/19/2022 Procedure Pass [facility], Ct Scan - [address] [address] Social History Tobacco Use Types Packs/Day Years [...] Contact Info) Description 11/19/2024 Procedure Pass [address] [address] 06/16/2025 10:30 AM EST Appointment [address] [address] Suzanne De Leon FNP [address] [place] [address] 08/03/2025 11:15 AM EST Appointment [facility] Bone Density [address] [address] Suzanne De Leon FNP [address] [place] [address] documented as of this encounter Visit Diagnoses Not on filedocumented in this encounter Additional Health Concerns Assessment Noted Time PHQ-2 Depression Total Score: 1 06/20/20 20 11:09 AM EST documented as of this encounter Care Teams Manager Statistics Relationship Specialty Start Date End Date Suzanne De Leon FNP [address] [place] [address] [place] [address] PCP - General Family Medicine 07/20/21 Spencer Chamorro MD [address] [place] [address] Insurance Assigned Provider 10/13/22 Suzanne De Leon FNP [address] [place] [address], [address] [place] [address] [email or web address] Insurance Assigned Provider 10/11/24 documented as of this encounter Additional Source Comments The information contained in this document represents components of the legal health record. It is not the complete legal health record.[facility]
--- OUTSIDE RECORDS SUMMARY | 2025-05-13 18:00 | XMS_ITS | Encounter Summary ---
Author Organization [facility] Address [address] [place] [address] Phone Care Team Providers Care Sales Recruiting Coordinator Name Role Phone Saeed Alvarez MD Unavailable Saeed Alvarez MD Primary Care Provider [phone] Suzanne De LeonP Primary Care Provider Spencer Chamorro MD Unavailable Suzanne De Leon Unavailable Encounter Details Date Type Department Care Team (Late st Contact Info) Description 08/05/2019 Ancillary Orders Virtual Department 30 [place] [address] Saeed Alvarez MD [address] [place] [address] [address] [place] [phone] [email or web address] Breast screening Social History Tobacco Use Types [...] st Contact Info) Description 11/19/2024 Procedure Pass [facility], [address] [address] 06/16/2025 10:30 AM EST Appointment [address] [address] Suzanne De Leon FNP 234 [facility] 7 [place] [address] [email or web address] 08/03/2025 11:15 AM EST Appointment [facility] Bone Density [address] [address] Suzanne De Leon FNP 234 [facility], [facility] 7 [place] [address] [email or web address] documented as of this encounter Visit Diagnoses Diagnosis Breast screening Breast screening, unspecified documented in this encounter Additional Health Concerns Infection Onset Date Last Indicated Resolved Time CoV-Exposed Comment:Recent close contact 05/13/2020 05/13/2020 05/27/2020 1:25 AM EST CoV-Exposed Comment:Recent close contact documented in the COVID-19 PCR/PRO order 02/01/2021 02/02/2021 02/26/2021 1:23 AM E DT documented as of this encounter Care Teams Sales Recruiting Coordinator Relationship Specialty Start Date End Date Saeed Alvarez MD [address] [place] [place] [address] [address] [place] [address] [email or web address] PCP - General 05/02/17 07/19/21 Suzanne De Leon FNP [address] [place] [address] [place] [address] [email or web address] PCP - General Family Medicine 07/20/21 Saeed Alvarez MD [address] [place] [place] [address] [address] [place] [address] [email or web address] Insurance Assigned Provider 09/10/15 Spencer Chamorro MD [address] [place] [address], [address] [place] [address] [email or web address] Insurance Assigned Provider 10/13/22 Suzanne De Leon FNP [address] [place] [address], [address] [place] [address] [email or web address] Insurance Assigned Provider 10/11/24 documented as of this encounter Additional Source Comments The information contained in this document represents components of the legal health record. It is not the complete legal health record.[facility]
--- OUTSIDE RECORDS SUMMARY | 2025-05-13 18:00 | XMS_ITS | Encounter Summary ---
Author Organization [facility] Address [address] [place] [address] Phone Care Team Providers Care Rehab Director Occupational Therapist Name Role Phone Saeed Alvarez MD Unavailable Saeed Alvarez MD Primary Care Provider [phone] Suzanne De Leon [facility] Primary Care Provider Spencer Chamorro MD Unavailable Suzanne De Leon [facility] Unavailable [phone] Encounter Details Date Type Department Care Team (Late st Contact Info) Description 08/05/2019 Ancillary Orders [facility] [address] [facility] [place] [address] Saeed Alvarez MD 234 [facility]. [address] [place] [id number] [email or web address] Social History Tobacco Use Types Packs/Day [...] Contact Info) Description 11/19/2024 Procedure Pass [address] [address] 06/16/2025 10:30 AM EST Appointment [address] [address] Suzanne De Leon FNP [address] [facility] [address] [place] [address] [email or web address] 08/03/2025 11:15 AM EST Appointment [facility] Bone Density [address] [address] Suzanne De Leon FNP [address] [facility] [address] [place] [address] [email or web address] documented as of this encounter Visit Diagnoses Not on filedocumented in this encounter Additional Health Concerns Infection Onset Date Last Indicated Resolved Time CoV-Exposed Comment:Recent close contact 05/13/2020 05/13/2020 05/27/2020 1:25 AM EST CoV-Exposed Comment:Recent close contact documented in the COVID-19 PCR/PRO order 02/01/2021 02/02/2021 02/26/2021 1:23 AM E DT documented as of this encounter Care Teams Rehab Director Occupational Therapist Relationship Specialty Start Date End Date Saeed Alvarez MD [address] [place] [address]. [address] [place], [place] [address] [email or web address] PCP - General 05/02/17 07/19/21 Suzanne De Leon FNP [address] [place] [address] [address] [place] [address] [email or web address] PCP - General Family Medicine 07/20/21 Saeed Alvarez MD [address] [place] [address] [address] [place] [address] [email or web address] Insurance Assigned Provider 09/10/15 Spencer Chamorro MD [address] [place] [address], [address] [place], [place] [address] [email or web address] Insurance Assigned Provider 10/13/22 Suzanne De Leon FNP [address] [place] [address], [address] [place] [address] [email or web address] Insurance Assigned Provider 10/11/24 documented as of this encounter Additional Source Comments The information contained in this document represents components of the legal health record. It is not the complete legal health record.[facility]
--- OUTSIDE RECORDS SUMMARY | 2025-05-13 18:01 | XMS_ITS | Clinical Summary ---
Author Organization [facility] Address [address] [place] [address] Phone Care Team Providers Care Center Consultant Name Role Phone Suzanne De Leon [facility] Primary Care Provider [phone] Suzanne De Leon [facility] Unavailable [phone] Allergies Active Allergy Reactions Criticality Noted Date [...] . 28 tablet 3 03/01/20 25 Active alendronate (FOSAMAX) 70 MG tablet [...] for a 30mg daily dose 90 capsule 03/16/20 25 Active fluoride, sodium, (PREVIDENT 5000 BOOSTER) 1.1 % Pste Use as directed in the mouth or throat nightly at bedtime. 1 g 1 03/16/20 25 Active guaiFENesin (ROBITUSSIN) 100 mg/5 mL syrupIndications: Cough Take 10 mL (200 mg total) by mouth daily as needed for cough. 120 mL 1 03/16/20 25 Active levETIRAcetam (KEPPRA) 750 MG IMMEDIATE release tabletIndications :Seizure disorder Take 1 tablet (750 mg total) by mouth 2 (two) times a day. 180 tablet 3 04/14/20 25 Active ibuprofen (ADVIL,MOTRIN) 400 MG tabletIndications :Primary osteoarthritis involving multiple joints TAKE 1 TABLET BY MOUTH TWICE A DAY 180 tablet 04/21/20 25 Active levothyroxine (SYNTHROID, LEVOTHROID) 50 MCG tabletIndications :Hypothyroid TAKE 1 TABLET BY MOUTH TWICE A WEEK ON MONDAYS AND THURSDAYS 24 tablet 04/21/20 25 Active levETIRAcetam (KEPPRA) 750 MG IMMEDIATE release tablet Take 1 tablet (750 mg total) by mouth nightly at bedtime. 90 tablet 3 03/16/20 25 2024 Discontinued(R eorder) ibuprofen (ADVIL,MOTRIN) 400 MG tabletIndications :Primary osteoarthritis involving multiple joints Take 1 tablet (400 mg total) by mouth 2 (two) times a day. 60 tablet 03/16/20 25 2024 Discontinued levothyroxine (SYNTHROID, LEVOTHROID) 50 MCG tabletIndications :Hypothyroid TAKE 1 TABLET BY MOUTH TWICE A WEEK ON MONDAYS AND THURSDAYS 8 tablet 03/16/20 25 2024 Discontinued Active Problems Problem Noted [...] disabled since that time, living in a long-term with hemiplegia on the left. At baseline [...] AM EDT): Slip and fall at her long-term 03/28 with x-ray evidence of a acute, [...] - Patient should follow-up in orthopedic clinic ([phone]) in approximately 2 weeks time with repeat [...] of scheduling. Pt participated in visit from long-term. Saji has left ankle and foot swelling [...] may be evaluated in the office. The long-term member understands and agrees with this plan. [...] Encounters Date Type Department Care Team Description 04/21/[address] [address] Leanna Bella, FAVIOLA Medication Refill 04/14/[address] [address] Suzanne De Leon FNP Medication Question (Lisa Ortega at [facility] wants to know why the pt medication script was changed from 2 times a day to 1 time at bedtime. Please give her a call back at [phone] contact and advise. //) 03/16/[address] [address] Radha Hernández Medication Refill 03/02/2025 9:45 AM EDT Office Visit [facility] [address] [place] [address] Alison Evans MD Pepyne, Rachael Mervine, PT Chronic right shoulder pain (Primary Dx); Right hand pain 03/01/[address] [address] Suzanne De Leon, DINAH Medication Refill ( levothyroxine (SYNTHROID, LEVOTHROID) 100 MCG tablet /) 02/24/[address] [address] Anitra Arechiga, FAVIOLA Medication Refill 2025 10:30 AM EDT Office Visit [facility] [address] [address] Alison Evans MD Pepyne, Rachael Mervine, PT Chronic right shoulder pain (Primary Dx); Right hand pain 02/10/2025 12:54 PM EDT - 02/10/2025 1:00 PM EDT [facility] [address] [place] [address] Discharge Disposition: Left Without Being Seen from Last 3 Months Immunizations Immunization Administration [...] st Contact Info) Description 11/19/2024 Procedure Pass [address] [address] 06/16/2025 10:30 AM EST Appointment [address] [address] Suzanne De Leon, DINAH [address] [facility], [address] [place] [address] 08/03/2025 11:15 AM EST Appointment [facility] D[facility] - [facility] [address] [place] [address] Suzanne De Leon, FLATWORK FINISHER HAND [address] [facility], [address] [place], [place] [id number] Health Maintenance Due Date Last Done Comments [...] this topic Medical Devices Implanted Type Area Health Navigator Device Identifier Shelf Expiration Date Model / Serial / Lot Cement Bone 40gm [place] Gentamicin High Viscosity Softpac - [id number] Implanted:Qty: 2 on 03/28/2021 by Edouard Luna MD at [facility] Left: Acetabulum ENCORE 02/04/2023 [id number] / / [id number] Hip Stem 7.0mm Femoral Echo Fx [place] Chromium - [id number] Implanted:Qty: 1 on 03/28/2021 by Edouard Luna MD at [facility] Left: Femur [employer] 12/14/2029 [id number] / / [id number] Acetabular Shell 41mm Endo Ii Titanium Alloy Unipolar - [id number] Implanted:Qty: 1 on 03/28/2021 by Edouard Lnua MD at [facility] Left: Acetabulum [employer] 03/08/2023 [id number] / / [id number] Hip Centralizer 10mm Implant Cemented Versys 16b Bx/1ea - [id number] Implanted:Qty: 1 on 03/28/2021 by Edouard Luna MD at [facility] Left: Acetabulum SHAWN / DIV OF Dopios [id number] 08/08/2030 [id number] / / [id number] Hip Insert 3.0mm Femoral Bio Cuevas Ii Endo Titanium Alloy Taper Plus - [id number] Implanted:Qty: 1 on 03/28/2021 by Edouard Luna MD at [facility] Left: Acetabulum [employer] 01/26/2031 [id number] / / [id number] Procedures Procedure Name Priority Date/Time Associated Diagnosis [...] [facility] Patient Name: Saji Eliel Attending MD:: JEANINE SANTIZO MD, Procedure Date: 12/08/2024 11:20 AM Date of : 1965 Age: 59 Admit Type: Outpatient Gender: Female Room: [place] [address] Referring MD: Suzanne De Leon Exam Type: [...] 11:20 AM Procedure Code(s): --- Professional --- 93952, Colonoscopy, flexible; with removal of tumor(s), polyp(s), or other lesion(s) by snare technique --- Technical --- 40067, Colonoscopy, flexible; with removal of tumor(s), polyp(s), or other lesion(s) by snare technique CPT copyright 2021 [employer]. All rights reserved. The codes documented in this report are preliminary and upon geoscience specialist reviewmay be revised to meet current compliance requirements. Procedure Date: 12/08/2024 11:20:[address] [place] [address] Suzanne De Leon FLATWORK FINISHER HAND GI PROCEDURE ORDERABLES Final Result * BI [...] notified of the results and recommendations. Suzanne De Leon FLATWORK FINISHER HAND IMG MG EXAMS Final Result * (ABNORMAL) Lipid panel (12/03/2023 10:10 AM EDT) HDL 44 mg/dL [facility] Comment: Interpretation <40 mg/dL: Low HDL cholesterol (major risk factor for CHD) Greater than or equal to 60 mg/dL: High HDL cholesterol ( negative risk factor for CHD) HDL - cholesterol is affected by a number of factors, e.g. smoking, excerise, hormones, sex and age. CHOLESTEROL 278(H) 0 - 240 mg/dL [facility] TRIGLYCERIDES 222(H) 30 - 160 mg/dL [facility] LDL 190(H) 50 - 129 mg/dL [facility] Comment: LDL levels in terms of risk for coronary heart disease: <100 mg/dL: Optimal 100-129 mg/dL: Near or above optimal 130-159 mg/dL: Borderline high 160-189 mg/dL: High >190 mg/dL: Very High CARDIAC RISK RATIO 6.3(H) 3.3 - 4.4 C [facility] Blood 12/03/2023 10:1 0 AM EDT 12/03/2023 10:20 AM EDT Suzanne De Leon [facility] LAB BLOOD BKR ORDERABLES Donna l Result [address] [address] * TSH with reflex (11/26/2023 11:36 AM EDT) TSH 0.85 0.27 - 4.20 uIU/mL [facility] Blood 11/26/2023 11:3 6 AM EDT 11/26/2023 11:38 AM EDT us Suzanne De Leon FLATWORK FINISHER HAND LAB BLOOD BKR ORDERABLES Donna browning Result [address] [address] * Pap Test (10/08/2023 12:00 AM EDT) Report [address] [address] Major Sales Associate: Shonda Cruz MD PROPERTY SUPERVISOR Cytology Report FINAL DIAGNOSIS A. PAP SMEAR [...] 59, 66, 68) Note: Testing performed by [facility] Onclarity HR-HPV analysis. Clinical correlation is advised. This HPV test was performed at [facility], [address] [place] [address]. This test has been FDA approved for both SurePath and ThinPrep cervical cytology specimens. The accuracy and precision of this test for all other specimen sources has been verified in the Cytopathology Laboratory of the [facility] and has not been cleared or approved by the U.S. Food and Drug Administration. Clinical correlation is advised. CLINICAL HISTORY Date of Last Menstrual Period: Not Provided Menstrual History: Post Menopausal Other Clinical Conditions: Screening Pap SPECIMEN SOURCE A: PAP SMEAR (SUREPATH) CE Patient Name: SAJI JULIAN : 1965 (Age: 58) Sex: F Institution: [facility] Location: [facility] Date of Collection: 10/08/2023 Date of Reported: 10/15/2023 11:11 Results to: Suzanne De Leon MSN [facility] Final Diagnosis A. PAP SMEAR (SUREPATH) CE: SPECIMEN ADEQUACY: Satisfactory for evaluation; transformation zone present. INTERPRETATION: NEGATIVE FOR INTRAEPITHELIAL LESION OR MALIGNANCY. [facility] Results\Inter pretation A. PAP SMEAR (SUREPATH) CE: Human Papilloma Virus TestNEGATIVE for high-risk Human Papilloma Virus types 16, 18, 45 and the Other high risk probe set (Includes 31, 33, 35, 39, 51, 52, 56, 58, 59, 66, 68)Note: Testing performed by [facility] Onclarity HR-HPV analysis. Clinical correlation is advised. This HPV test was performed at [facility], [address] [place] [address]. This test has been FDA approved for both SurePath and ThinPrep cervical cytology specimens. The accuracy and precision of this test for all other specimen sources has been verified in the Cytopathology Laboratory of the [facility] and has not been cleared or approved by the U.S. Food and Drug Administration. Clinical correlation is advised. [facility] Conversion Type (Conversion Source) 10/08/2023 10/09/2023 9:36 AM EDT Suzanne De Leon FLATWORK FINISHER HAND CYTOLOGY ORDERABLES Edited Re sult - Final [facility] [address] [place] [address] * BD DXA AXIAL (SPINE) WITH HIP [...] bone mineral density was calculated at 0.636 gm/zp1gxlq a T- score of -1.9 falling within [...] in bone density since 2008. us Brigida Merlosdanna Elmore LEAD ASSEMBLER IMG BD BONE DENSITY DEXA F inal Result * Hepatitis C antibody, qualitative (11/11/2018 11:21 AM EDT) HCV Negative Negative [facility] Comment: This is a screening test and should be confirmed with molecular testing Blood 11/11/2018 11:2 1 AM EDT 11/11/2018 11:25 AM EDT us Saeed Alvarez MD LAB BLOOD BKR ORDERABLES Final Result [address] [address] from Last 3 Months or Most Recently Relevant to Health Maintenance Insurance MEDICARE PART A & B [facility] MEDIC[facility] & [facility] & [facility] & [place] PART [facility] & [facility] & [facility] Advance Directives For more information, please contact: [phone] (9AM - 5PM [facility], Saturday-Saturday) Documents on File Type Date Recorded Patient Transplant Surgeon Expl anation Healthcare Proxy 04/04/2021 9:10 AM Durable Power of Salesforce Business Analyst 04/04/2021 9:10 AM * Full Code (Latest Code Status on File) Date Activated Date Inactivated Comments 03/28/2021 7:34 PM Question Answer Comments Code Status Confirmed With: Patient * Full Code Date Activated Date Inactivated Comments 03/28/2021 7:30 PM 03/28/2021 7:34 PM Question Answer Comments Code Status Confirmed With: PatientSurrogate Code Discussion Comments: long-term staff Healthcare Agents on File Name Relationship Healthcare Agent [facility] Communication Afua Alvarenga Sister .Primary Health Care Agent (Proxy form on file) Care Teams Center Consultant Relationship Specialty Start Date End Date [place] Suzanne VannDINAH [address] [facility] [address] [place] [address] PCP - General Family Medicine 07/20/21 Suzanne De Leon FNP 234 [facility] [address] [place] [address] Insurance Assigned Provider 10/11/24 Additional Source Comments The information contained in this document represents components of the legal health record. It is not the complete legal health record.[facility]
== END 2025-05-13 15:37 | disposition home or self-care (01) ==
LOC: HO.HOS 14:52
PROVIDERS: Visit Provider Physician Assistant
DX: S72.90XA Unspecified fracture of unspecified femur, initial encounter for closed fracture (principal)
CPT/HCPCS: 99024

== ENCOUNTER → 2025-05-13 14:52 | Outpatient (BNVA) | payer MEDICARE, MEDICAID, SELFPAY | PROVIDERS: Visit Provider Physician Assistant | DX: S72.92XA Unspecified fracture of left femur, initial encounter for closed fracture (principal) | CPT/HCPCS: 99212 ==

== ENCOUNTER 2025-06-10 10:03 | Outpatient (REF) | payer MEDICARE, MEDICAID, SELFPAY | END 2025-06-10 10:04 | disposition home or self-care (01) | LOC: HO.HOSX 10:03 | PROVIDERS: Visit Provider Physician Assistant | DX: S72.402D Unspecified fracture of lower end of left femur, subsequent encounter for closed fracture with routine healing (principal); X58.XXXD Exposure to other specified factors, subsequent encounter | CPT/HCPCS: 99212 ==

== ENCOUNTER 2025-06-10 13:05 | Outpatient (AMB) | payer MEDICARE, MEDICAID, SELFPAY ==
--- NOTE | 2025-06-10 13:34 | A.OFFVIS_ITS ---
Intake Visit Reasons: OV- LT Femur Fracture, DOI 03/03/25 w/ XR Intake Note: Radha is a 60 year old woman who presents today in a stretcher for a follow up of left femur fracture, DOI 03/03/25. At her last visit she was instructed to continue with non weight bear and follow up in 3 weeks with x-rays. Patient reports that she is doing well, states that she is eager to find out if she is able to bear weight. Allergies apple Allergy (Verified 06/10/25 13:35) Unknown lactose Allergy (Verified 06/10/25 13:35) Gastrointestinal Upset levofloxacin (From Levaquin) Allergy (Verified 06/10/25 13:35) Unknown peanut Allergy (Verified 06/10/25 13:35) Unknown Penicillins Allergy (Verified 06/10/25 13:35) Unknown pork derived (porcine) Allergy (Verified 06/10/25 13:35) Unknown HPI HPI OV- LT Femur Fracture, DOI 03/03/25 w/ XR: Details: 60-year-old female returns to the office today 3-1/2 months status post left femur fracture date of injury 03/03/2025. She continues to remain nonwei ghtbearing of the left lower extremity. No concerns today. [facility] Medical History CVA (cerebral vascular accident) Social History Current occupational status: disabled Review of Systems Const All systems reviewed & are unremarkable except as noted in HPI and below Physical Exam Const General: cooperative and no acute distress Orientation/consciousness: patient oriented x3 Resp Effort & Inspection: normal respiratory effort and able to speak in complete sentences Cardio Peripheral pulses: Peripheral pulses 2+ throughout Neuro General: patient oriented x3 Extrem Other: Left lower extremity skin is intact. No swelling along the distal femur is resolving and there is no skin breakdown over the fracture site. She contracts her leg into a flexed position at the knee and hip. She is insensate to touch. Pulses present. Results Reviewed Results Reviewed: XR femur LT 2V IMPRESSION: Comminuted markedly angulated fracture of the distal femur with callus formation Assessment & Plan Assessment & Plan (1) Fracture of femur: Code(s): S72.90XA - Unspecified fracture of unspecified femur, initial encounter for closed fracture Category: Medical Plan: Continue with caution of her skin and her neurovascular status.. She has developed some callus along the fracture site and the fracture pattern is a cceptable given that she does not walk and is insensate in his limb. I gave instruction for the rehab facility to check her skin routinely and if there is any concerns such as irritation skin breakdown tenting swelling redness or any other signs of skin breakdown. they should contact us immediately. Otherwise the patient will continue with nonweightbearing and see us back in 6 weeks with x-rays, sooner if needed. Orders: Orders XR femur LT 2V Today M79.606 - Pain in leg, unspecified Coding Level of Care Code Est Pt Level 3 (84120) Complex visit Add On G2211 Diagnoses Fracture of femur S72.90XA
== END 2025-06-10 14:04 | disposition home or self-care (01) ==
LOC: HO.HOS 13:06
PROVIDERS: Visit Provider Physician Assistant
DX: S72.92XA Unspecified fracture of left femur, initial encounter for closed fracture (principal)
CPT/HCPCS: 99024